=== PATIENT | female | born 1940 | race Caucasian/White ===

== ENCOUNTER 2018-03-04 06:54 | Outpatient (CLI) | payer OTHER, SELFPAY ==
[2018-03-04 08:10] LABS: Abs Immature Grans 0.01 k/cumm (0.0-0.09); Absolute Basophil Count 0.04 k/cumm (0.0-0.2); Absolute Eosinophil Count 0.26 k/cumm (0.0-0.7); Absolute Lymphocyte Count 1.73 k/cumm (1.2-3.4); Absolute Monocyte Count 0.58 k/cumm (0.11-0.7); Absolute Neutrophil Count 2.48 k/cumm (1.2-6.7); Basophils % 0.8; Eosinophils % 5.1; HCT 42.9 % (36.0-46.0); HGB 14.3 g/dL (12.0-15.5); Immature Grans % 0.2; Lymphocytes % 33.9; Mean Corp. HGB Concentration 33.3 g/dL (32.0-36.0); Mean Corpuscular Volume 89.9 fL (80-95); Mean Platelet Volume 11.7 fL (8.0-11.0); Monocytes % 11.4; Neutrophils % 48.6; Platelet Count 181 x1000/uL (130-400); RBC 4.77 m/cumm (4.00-5.20); RBC Distribution Width 14.7 % (11.7-14.6)
[2018-03-04 08:25] LABS: ALT 23 U/L (12-78); AST 9 U/L (15-37); Albumin 3.6 g/dL (3.4-5.0); Alkaline Phosphatase 99 U/L (46-116); Anion Gap 5.8 mmol/L (3-11); BUN 20 mg/dL (7-18); Bilirubin, Total 0.6 mg/dL (0.2-1.0); C-Reactive Protein 0.21 mg/dL (0.0-0.3); CO2 29.2 mmol/L (21.0-32.0); CREATININE 0.82 mg/dL (0.55-1.02); Calcium 9.2 mg/dL (8.5-10.1); Chloride 103 mmol/L (98-107); Glucose 104 mg/dL (70-100); Sodium 138 mmol/L (136-145); Total Protein 7.5 g/dL (6.4-8.2)
== END 2018-03-04 07:14 ==
PROVIDERS: PCP Nurse Practitioner Family; Visit Provider Nurse Practitioner Family
DX: I30.0 Acute nonspecific idiopathic pericarditis (principal); K92.1 Melena; K62.1 Rectal polyp; I10 Essential (primary) hypertension
CPT/HCPCS: 36415; 46600; 80053; 99203; 99213; 85025; 86140

== ENCOUNTER 2018-03-15 08:12 | Day surgery (SDC) | payer OTHER, SELFPAY ==
--- NOTE | 2018-03-15 06:47 | W.COLOREPORT ---
Date of service: 03/15/18 Time of Service: 10:41 Colonoscopy Report Date of procedure: 03/15/18 Pre-op diagnosis general: Rectal bleeding, rectal polyp Post-op diagnosis procedure note: other (Rectal mass) Procedure: Colonoscopy with biopsy with hot snare Surgeon: Lois Mckeon Anesthesia proc note operative: MAC (Jay Newberry CRNA) Estimated blood loss (mL): 5 Pathology: other (rectal mass) Complications: None Disposition: same day Indications: Mrs Garcia is a pleasant 78-year-old female who I saw in the office for some rectal bleeding. It was felt that it was most likely hemorrhoids. Anoscopy was done and I saw a large polyp. Colonoscopy was recommended. Risks, benefits, and complications were reviewed with the patient and she wished to proceed. No guarantees were given or implied. Prep: Miralax/Dulcolax Procedure Start Time: 10:00 Procedure End Time: 10:32 Retraction Time: 20 Findings: Large friable rectal mass just above the dentate line Procedure Description: After informed consent was obtained the patient was taken to the procedure room and placed in a left decubitous position. Monitors were applied and a time out was done. The patients name, date of , procedure, allergies to medications and metal in their body was reviewed. The patient was then sedated. Once sedated and comfortable a rectal exam was done. External exam was normal. Internal exam revealed a normal sphincter tone and a palpable mass. The scope was then introduced and retro-flexed. No internal hemorrhoids were identified. There was a circumferential mass that was just at or above the dentate line. It was hard to see were it began. It was friable. The scope was then advanced to the cecum without difficulty. The TI and appendiceal orifice were identified. The prep was adequate. The scope was then slowly retracted over 20 minutes back into the rectum. Using a small snare 2 1 cm pieces of the mass were removed. The scope was removed and the patient was woken up and taken back to Same day surgery in stable condition. The patient tolerated the procedure well and there were no immediate complications. Follow up: I will get CBC, CMP and CEA today. Will get a CT scan chest, abdomen and pelvis authorized. We will call her with time and date of her CT scan. I will refer patient to Colorectal surgeon and radiation oncology at [facility] [place] and consultation.
--- NOTE | 2018-03-15 06:49 | W.PM.DSUDISC ---
Discharge Plan Disposition Patient Disposition: HOME Condition: Good Discharge Details Reason For Visit: RECTAL POLYP Attending Provider: Lois Mckeon Primary Care Provider: Shakila Cadet Home Meds and New Rx's Prescriptions: Continue docusate sodium 100 mg capsule 100 mg PO DAILY RF: 0 multivitamin [Daily Multi-Vitamin] 1 EACH tablet 1 ea PO DAILY RF: 0 hydrochlorothiazide 25 MG tablet 12.5 mg PO DAILY Qty: 45 RF: 3 vitamin E mixed 400 UNIT tablet 400 mg PO DAILY RF: 0 amlodipine 2.5 mg tablet 2.5 mg PO DAILY Qty: 90 RF: 3 Discharge Instructions Instructions: Colonoscopy (DC) Additional Instructions: Findings: Rectal mass, unfortunately this is most likely Cancer Follow up: We will call you to let you know about your appointment for a CT scan. I am going to refer you to [facility] colorectal surgeon and with a radiation oncologist. If you haven't hear from [facility] by next week then call my office. I will call you as soon as I have the Pathology results New Medications: none Please call if you develop: Fevers >101.5 Nausea or Vomiting Abdominal pain that is not transient Other: You may have some bleeding for a day or 2 1. Because there will be medication in your system for the next 24 hours, you may feel a little sleepy. Your coordination will be affected. Therefore: a. Do not drive or operate dangerous equipment for 24 hours. b. Do not drink alcohol beverages for 24 hours (not even beer). c. Plan to go home and rest for the day. 2. Generally there are no restrictions on your activity after a day or so has gone by, but you may feel a bit fatigued for a few days. 3 After you arrive home you may have a light meal and return to a normal diet as you can tolerate it without feeling sick to your stomach. 4. After surgery, you may feel pain or discomfort. This should be only transient, but if it persists please contact your doctor. 5. If there are any questions regarding the findings of your procedure, please feel free to contact your doctor. 6. If you are unable to contact your doctor with a problem, contact the hospital at [phone]. 7. Continue all your regular medications unless directed otherwise. I understand the above instructions and have no questions. Signature of Patient or Responsible Adult Escort Date/Time Name of Responsible Adult Escort Signature of Nurse Date/Time Activity:: Activity as Tolerated Diet:: As Tolerated Discharge Orders Discharge Orders: Discharge Order (Routine); Ordered 03/15/18 Ordered By: Lois Mckeon DS: Diagnosis Discharge Diagnosis (1) Rectal mass: Status: Suspected (2) S/P colonoscopy: Status: Acute
[2018-03-15 08:33] VITALS: BP 128/77; PULSE 88; RESP 16; TEMP 36.2; O2SAT 98
[2018-03-15] MEDS: Lactated Ringers 1,000 ML 80 ML IV (08:45)
--- NOTE | 2018-03-15 10:28 | BOWEL_PTH ---
PATIENT: Kelsea Garcia LOC: [facility] U#:[id number] AGE/SX: 78/F ROOM: RE03/15/[address]: Lois Mckeon MD : [id number] BED: DIS: 03/15/2018 SPEC #: [id number] RECD: 03/15/18 12:51 STATUS: RIZWAN REQ #: [id number] TIFFANY: 03/15/18 10:[address]: Lois Mckeon DEPT: Surgical Specimen RECD BY: Moriah Black ENTERED: 03/15/18 12:52 SP TYPE: Bowel OTHR DR: Shakila Cadet APRN Tissues: 1 - BIOPSY BOWEL Procedures: GROSS AND MICRO LEVEL 4 Comments: [id number]
[2018-03-15 11:21] VITALS: BP 152/84; PULSE 70; RESP 16; TEMP 35.7; O2SAT 99
[2018-03-15] MEDS: Normal Saline Flush 10 ML SYR IV (11:33)
[2018-03-15 11:47] LABS: Absolute Basophil Count 0.03 k/cumm (0.0-0.2); Absolute Eosinophil Count 0.18 k/cumm (0.0-0.7); Absolute Lymphocyte Count 1.47 k/cumm (1.2-3.4); Absolute Monocyte Count 0.58 k/cumm (0.11-0.7); Absolute Neutrophil Count 2.79 k/cumm (1.2-6.7); Basophils % 0.6; Eosinophils % 3.6; HCT 41.5 % (36.0-46.0); Lymphocytes % 29.1; Mean Corp. HGB Concentration 33.7 g/dL (32.0-36.0); Mean Corpuscular Hemoglobin 30.2 pg (27.0-33.0); Mean Corpuscular Volume 89.4 fL (80-95); Mean Platelet Volume 11.7 fL (8.0-11.0); Monocytes % 11.5; Neutrophils % 55.2; Platelet Count 157 x1000/uL (130-400); RBC 4.64 m/cumm (4.00-5.20); RBC Distribution Width 14.2 % (11.7-14.6); White Blood Cell Count 5.05 k/cumm (4.4-10.8)
[2018-03-15 12:06] LABS: ALT 19 U/L (12-78); AST 18 U/L (15-37); Albumin 3.5 g/dL (3.4-5.0); Alkaline Phosphatase 98 U/L (46-116); Anion Gap 10.2 mmol/L (3-11); BUN 12 mg/dL (7-18); Bilirubin, Total 0.6 mg/dL (0.2-1.0); CO2 26.8 mmol/L (21.0-32.0); CREATININE 0.94 mg/dL (0.55-1.02); Calcium 9.2 mg/dL (8.5-10.1); Chloride 102 mmol/L (98-107); Glucose 102 mg/dL (70-100); Potassium 3.7 mmol/L (3.5-5.1); Sodium 139 mmol/L (136-145); Total Protein 7.2 g/dL (6.4-8.2)
[2018-03-16 10:13] LABS: CEA <0.5 ng/ml
== END 2018-03-15 11:40 | disposition home or self-care (01) ==
LOC: SUR 08:12
PROVIDERS: PCP Nurse Practitioner Family; Visit Provider Surgery
PROC: 0DJD8ZZ Inspection of Lower Intestinal Tract, Via Natural or Artificial Opening Endoscopic (ICD-10-PCS; CPT 45378; principal; 2018-03-15 10:00)
DX: K62.5 Hemorrhage of anus and rectum (principal); D12.8 Benign neoplasm of rectum; I10 Essential (primary) hypertension
CPT/HCPCS: 45385; 36415; 80053; 88305; 82378; 85025

== ENCOUNTER 2018-03-17 02:00 | Outpatient (CLI) | payer OTHER, SELFPAY ==
[2018-03-17] MEDS: Omnipaque 350 MG/ML 50 ML BTL PO (10:33)
[2018-03-17] MEDS: Omnipaque 350 MG/ML 100 ML BTL IJ (10:33)
--- NOTE | 2018-03-17 10:45 | DI.CT_ITS ---
SYMPTOM/DIAGNOSIS: NEW DIAGNOSIS OF RECTAL CANCER C20 CHEST, ABDOMEN AND PELVIS CT: 03/17 CT examination of the chest, abdomen and pelvis was performed with biphasic hepatic imaging with intravenous infusion of 100 cc Omnipaque 350 and ingestion of dilute Barium. The patient reportedly has a history of recently diagnosed rectal carcinoma. No focal bony lesion identified in the regions surveyed to indicate bony metastases. The lungs are mostly clear. However, there are predominantly linear areas of increased radiodensity in the lung apices and in the lung bases consistent with scarring. There is small focus of right middle lobe atelectasis or scarring. There is question of superimposed multiple nodular radiodensities in the right lung apex, the largest measuring about 13 mm in greatest diameter. Findings may represent scarring but the possibility of superimposed intrapulmonary metastatic or primary lesion is not excluded. Tracheobronchial tree appears intact. No mediastinal or hilar adenopathy. No pulmonary embolic disease. No thoracic aortic aneurysm or dissection. No pleural effusion or pleural based mass. Liver and spleen appear normal. No biliary dilatation seen. Gallbladder and bile ducts are CT normal. The pancreas appears normal. Abdominal aorta is of normal diameter and no major vascular abnormalities seen. No significant abdominal wall hernia seen. No abdominal or pelvic adenopathy. [employer] structures appear intact for post-menopausal patient. Question rectal wall thickening consistent with diagnosis of rectal carcinoma. No abdominal or pelvic adenopathy seen. Adrenals appear normal bilaterally. There are prominent extrarenal pelves bilaterally without evidence of hydronephrosis. No evidence of ureterolithiasis. A small nonobstructing left renal calculus is noted. CONCLUSION: 1. Nonobstructing left renal calculus 2. Questionable findings in right lung apex, scarring vs metastatic or primary lung neoplasm. Close follow up, PET CT, or tissue sampling should be considered.
== END 2018-03-17 02:20 ==
PROVIDERS: PCP Nurse Practitioner Family; Visit Provider Surgery
DX: C20 Malignant neoplasm of rectum (principal); N20.0 Calculus of kidney; J98.4 Other disorders of lung; R91.1 Solitary pulmonary nodule
CPT/HCPCS: 74177; 71260; J3490; Q9967

== ENCOUNTER → 2019-06-29 09:56 | Outpatient (BNVA) | payer MEDICARE, OTHER, SELFPAY | PROVIDERS: PCP Nurse Practitioner Family; Referring Provider Nurse Practitioner Family; Visit Provider Physical Therapy Assistant | DX: K64.8 Other hemorrhoids (principal); K62.89 Other specified diseases of anus and rectum; Z12.11 Encounter for screening for malignant neoplasm of colon; Z86.010 Personal history of colon polyps; I10 Essential (primary) hypertension | CPT/HCPCS: 99213 ==

== ENCOUNTER 2019-07-11 16:22 | Inpatient (IN) | payer MEDICARE, OTHER, SELFPAY ==
[2019-07-11] VITALS (23 sets, daily range): BP systolic 130–162; BP diastolic 52–91; PULSE 64–97; RESP 13–20; TEMP 36.4–37.2; O2SAT 95–99
--- NOTE | 2019-07-11 16:26 | DI.RAD_ITS ---
EXAM: XR PELVIS AP and XR femur RT CLINICAL HISTORY: fall, pain. TECHNIQUE: 2D digital imaging was performed. COMPARISON: No previous for comparison. FINDINGS: BONES: There is a mildly displaced intertrochanteric fracture of the right femur. No bony destructiv e lesion is seen. JOINTS: No dislocation present. No joint space narrowing is present. SOFT TISSUE: Normal. Atherosclerosis. IMPRESSION: Mildly displaced intertrochanteric fracture of the right femur. DATA REPOSITORY: RADIATION DOSE DELIVERED:
--- NOTE | 2019-07-11 16:27 | ED.GENADUL_ITS ---
Discharge Plan Disposition Patient Disposition: [facility] Condition: Serious Discharge Details Chief Complaint: Orthopedic Clinical Impression: Closed intertrochanteric fracture of right hip, Fall due to ice or snow Primary Care Provider: Isatu Soni ED Provider: Martin Barrow Home Meds and New Rx's Prescriptions: No Action docusate sodium [Colace] 100 mg capsule 100 mg PO DAILY RF: 0 hydrocortisone 2.5 % cream with perineal applicator 1 applic LA TID PRN (Reason: hemorrhoids) Qty: 30 RF: 2 multivitamin [Daily Multi-Vitamin] 1 EACH tablet 1 ea PO DAILY RF: 0 amlodipine 2.5 mg tablet 2.5 mg PO DAILY Qty: 90 RF: 3 Medical Decision Making 79-year-old female here after mechanical slip and fall on ice with injury to right hip. Imaging delayed secondary to pain. Will have [employer] [employer] see patient for fascia iliaca block. Toradol 30mg IV and subdissociative ketamine 10mg IV given for pain. xray of pelvis and hip reviewed and interpreted by me: Intertrochanteric fracture right hip I called and spoke with Dr. Garzon, on-call orthopedics, and discussed presentation and diagnostics. I called and spoke with on-call hospitalist, Dr. Santoyo, who will admit the patient. Screening ECG as requested by Dr. Santoyo was reviewed and interpreted by me: Sinus rhythm 79 bpm, normal axis, nondiagnostic. Screening labs reviewed and nondiagnostic. HPI General Mode of arrival: ambulatory . Date/Time Provider Initiated Documentation: 07/11/19 16:26 . Limitations to Documentation: no limitations . Information obtained by: patient . HPI Narrative: 79yo f here with right hip pain. Patient notes she slipped on ice and fell to the ground injuring her right hip. This occurred about 2 to 3 hours prior to arrival. Patient notes she has been on the ground for 2 to 3 hours in the cold. She did not hit her head. She did not lose consciousness. She does not have any neck or back pain. Patient denies chest pain or shortness of breath. Related Data Home Medications Medication Instructions Recorded Confirmed multivitamin [Daily Multi-Vitamin] 1 ea PO DAILY 08/28/16 07/11/19 amlodipine 2.5 mg tablet 2.5 mg PO DAILY #90 tab-cap 02/24/18 07/11/19 docusate sodium 100 mg capsule 100 mg PO DAILY 06/29/19 07/11/19 hydrocortisone 2.5 % topical cream 1 applic LA TID PRN #30 gm 07/05/19 07/11/19 with perineal applicator Previous Rx's Medication Instructions Recorded amlodipine 2.5 mg tablet 2.5 mg PO DAILY #90 tab-cap 02/24/18 hydrocortisone 2.5 % topical cream 1 applic LA TID PRN #30 gm 07/05/19 with perineal applicator Allergies Allergy/AdvReac Type Severity Reaction Status Date / Time morphine Allergy Severe throat Unverified 07/11/19 17:39 closed up alendronate sodium Allergy Intermediate chest pain Unverified 07/11/19 17:39 [From Fosamax] propranolol HCl AdvReac Intermediate depression Unverified 07/11/19 17:39 [From Inderal LA] tramadol HCl [From Ultram] AdvReac Intermediate Got High Unverified 07/11/19 17:39 Review of Systems All systems reviewed & are unremarkable except as noted in HPI and below Cardiovascular Cardiovascular: Denies chest pain and Denies dyspnea Respiratory Respiratory: Denies dyspnea Gastrointestinal Gastrointestinal: Denies abdominal pain Musculoskeletal Musculoskeletal: Reports as per HPI [facility] Medical History Acute idiopathic pericarditis (Resolved 07/23/17) Acute pericarditis Chest pain at rest (Resolved 08/20/16) Thought to be related to adverse reaction to Fosamax (esophagitis?) Essential hypertension (Chronic) Hyperlipidemia, unspecified (Chronic) 02/2017 labwork: 10-year ASCVD ~25.1% --> pt declines statins Lung nodule (Chronic) RUL noted incidentally 03/17/[address] carried out during workup for rectal polyp --> 04/04/19 [facility] [place] Thoracic Surgery consult and PET scan showing non-FDG avid lesion most c/w scar tissue --> plan for 3 vs. 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) [facility] [place] Podiatry, R>L Osteoporosis, unspecified (Chronic) S/p failed tx with bisphosphonates (adverse reactions) Pityriasis rubra pilaris (Resolved 08/20/16) [facility] [place] Dermatology Tubulovillous adenoma polyp of rectum (Acute) 03/15/2018 colonoscopy Unspecified vertiginous syndromes and labyrinthine disorders (Resolved 08/20/16) Surgical History Bladder Suspension With correction of rectal prolapse at the same time H/O rectal polypectomy (Acute 04/15/18) Ligation of fallopian tube (~1972) Vaginal hysterectomy Family History Mother , Breast CA at age 70. Essential hypertension Migraines Neoplasm Breast Father , Leukemia at age 50. TB (tuberculosis) Neoplasm Leukemia Brother Essential hypertension Social History Smoking/Tobacco Use Status: Former Tobacco Use Alcohol Intake: current Alcohol Intake frequency: 0-2 drinks per day Alcohol type: wine Drug use: Rarely Substance use type: marijuana Details: Patient states had brownie a couple weeks ago. Adopted: No Caregiver/Support person: No Foster care: No Household members: spouse Number of Children: 1 Current gender identity: female What type of physical activity do you participate in: regular exercise Duration: 45-60 minutes/day Frequency: daily Seatbelt use: always Water heater temp set <120 deg: Yes Working smoke detector in home: Yes Fire extinguisher in home: Yes Carbon monox detector in home: Yes Firearms in home: Yes Firearms unloaded and locked: No Do you feel safe at home: Yes Do you feel safe in your relationship?: Yes Additional Social history: Patient reports is very active and takes walks every day. Exam Const General: cooperative and no acute distress HENNM Head: normocephalic and atraumatic Mouth: moist mucous membranes Eyes EOM: EOM intact bilaterally Neck Neck: trachea midline and supple Resp Auscultation: clear to auscultation bilaterally, no rales, no rhonchi and no wheezes Cardio Jugular venous pressure: no JVD Rate: regular rate and not tachycardic Rhythm: regular rhythm GI Palpation: soft, not firm, no guarding, no masses, not rigid and nontender Back/Spine/Pelvis Cervical Spine: cervical ROM normal and No cervical spinal tenderness Thoracic/Lumbar Spine: No thoracic spinal tenderness and No lumbar spinal tende rness Skin General skin exam: no rashes or lesions noted Neuro General: patient alert, patient awake, patient oriented x3 and tone normal Motor: other (wiggles toes right) Sensory Exam: other (distal sensation intact RLE) Extrem General: no edema Right lower extremity: hip/thigh Details: tenderness Location: of the proximal upper leg and abnormal ROM Details: pain with passive ROM during (any movement) Psych Appearance: grossly normal
[2019-07-11] MEDS: Ketorolac 30 MG/ML VIAL IVP (17:20)
[2019-07-11] MEDS: Ketamine 500 MG/10 ML VIAL 10 MG IV (17:20)
[2019-07-11] MEDS: Normal Saline Flush 10 ML SYR IVP (17:24)
[2019-07-11] MEDS: Normal Saline 100 ML 400 ML (17:24)
[2019-07-11 17:33] LABS: Abs Immature Grans 0.02 k/cumm (0.0-0.09); Absolute Eosinophil Count 0.01 k/cumm (0.0-0.7); Absolute Monocyte Count 0.77 k/cumm (0.11-0.7); Basophils % 0.2; Eosinophils % 0.1; HGB 13.6 g/dL (12.0-15.5); Immature Grans % 0.2 %; Lymphocytes % 7.7; Mean Corpuscular Hemoglobin 30.2 pg (27.0-33.0); Mean Corpuscular Volume 88.9 fL (80-95); Mean Platelet Volume 12.3 fL (8.0-11.0); Neutrophils % 85.8; Platelet Count 177 x1000/uL (130-400); RBC Distribution Width 14.5 % (11.7-14.6); White Blood Cell Count 12.81 k/cumm (4.4-10.8)
[2019-07-11 17:39] LABS: Absolute Basophil Count 0.03 k/cumm (0.0-0.2); Absolute Lymphocyte Count 0.99 k/cumm (1.2-3.4); Absolute Neutrophil Count 10.99 k/cumm (1.2-6.7)
[2019-07-11 17:52] LABS: ALT 22 U/L (14-59); AST 15 U/L (15-37); Albumin 3.8 g/dL (3.4-5.0); Alkaline Phosphatase 114 U/L (46-116); BUN 23 mg/dL (7-18); Bilirubin, Total 0.5 mg/dL (0.2-1.0); CREATININE 0.94 mg/dL (0.55-1.02); Calcium 9.6 mg/dL (8.5-10.1); Chloride 103 mmol/L (98-107); Estimated GFR 57.74 (mL/min/1.73m2); Glucose 148 mg/dL (74-106); Potassium 3.5 mmol/L (3.5-5.1); Sodium 139 mmol/L (136-145); Total Protein 7.1 g/dL (6.4-8.2); Troponin I 0.06 ng/Ml (<0.06)
--- NOTE | 2019-07-11 19:08 | DI.VRAD_ITS ---
PROCEDURE INFORMATION: Exam: XR Right Femur Exam date and time: 07/11/2019 4:58 PM Age: 79 years old Clinical indication: Other: Fall, pain TECHNIQUE: Imaging protocol: XR Right femur. Views: 2 views. COMPARISON: No relevant prior studies available. FINDINGS: Bones/joints: Right intratrochanteric fracture. Soft tissues: Unremarkable. Vasculature: Atherosclerotic disease. IMPRESSION: Right intratrochanteric fracture. Dictated and Authenticated by: Cynthia Bridges MD. Ordering:ISAIAH Salazar MD
--- NOTE | 2019-07-11 19:09 | DI.VRAD_ITS ---
PROCEDURE INFORMATION: Exam: XR Pelvis Exam date and time: 07/11/2019 4:58 PM Age: 79 years old Clinical indication: Other: Fall, pain TECHNIQUE: Imaging protocol: XR pelvis. Views: 1 or 2 view. COMPARISON: No relevant prior studies available. FINDINGS: Bones/joints: Degenerative changes at L4-L5. Mild levoscoliosis of the lumbar spine. Right intratrochanteric fracture. Soft tissues: Unremarkable. Vasculature: Atherosclerotic disease. IMPRESSION: Right intratrochanteric fracture. Dictated and Authenticated by: Cynthia Bridges MD. Ordering:ISAIAH Salazar MD
--- NOTE | 2019-07-11 20:57 | HPE_ITS ---
Date of service: 07/11/19 Time of Service: 20:57 Assessment and Plan Assessment and plan (1) Closed intertrochanteric fracture of right hip: Start date: 07/11/19 Status: Acute Assessment and plan: This is a generally healthy 79-year-old lady who slipped and fell on the ice fracturing her right hip. She is medically stable for surgery and will remain n.p.o. after midnight with planned surgical repair in the morning. Orthopedic surgery has been notified through the ED. Qualifiers: Encounter type: initial encounter Fracture alignment: nondisplaced Qualified Code(s): S72.144A - Nondisplaced intertrochanteric fracture of right femur, initial encounter for closed fracture (2) Essential hypertension: Status: Chronic Assessment and plan: This is a patient's only medical problem and stable on low-dose amlodipine. EKG was reported as normal sinus rhythm with no acute changes. 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 She had severe pain and could not stand and was in the snow for a couple of hours before her found her. She was dressed appropriately and did not have hypothermia or evidence of further muscle injury. She is very active and usually walks daily. In the ED she was assessed as stable except for pain control which was complicated by her allergies morphine. She was able to take fentanyl in the past and this was given with pain relief she was on Med Surg. Orthopedic was consulted from the ED and does plan to take her to surgery in the morning. Her only chronic medical problem is hypertension which is generally controlled. Review of Systems Narrative: 13 point review of systems otherwise unrevealing or stable. Patient had a mechanical fall, slipping on ice with no cardiovascular or respiratory complaints prior. COUNTS INCLUDE 234 BEDS AT THE [facility] Medical History Acute idiopathic pericarditis (Resolved 07/23/17) Acute pericarditis Chest pain at rest (Resolved 08/20/16) Thought to be related to adverse reaction to Fosamax (esophagitis?) Essential hypertension (Chronic) Hyperlipidemia, unspecified (Chronic) 02/2017 labwork: 10-year ASCVD ~25.1% --> pt declines statins Lung nodule (Chronic) RUL noted incidentally 03/17/[address] carried out during workup for rectal polyp --> 04/04/19 [facility] [place] Thoracic Surgery consult and PET scan showing non-FDG avid lesion most c/w scar tissue --> plan for 3 vs. 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) [facility] [place] Podiatry, R>L Osteoporosis, unspecified (Chronic) S/p failed tx with bisphosphonates (adverse reactions) Pityriasis rubra pilaris (Resolved 08/20/16) [facility] [place] Dermatology Tubulovillous adenoma polyp of rectum (Acute) 03/15/2018 colonoscopy Unspecified vertiginous syndromes and labyrinthine disorders (Resolved 08/20/16) Surgical History Bladder Suspension With correction of rectal prolapse at the same time H/O rectal polypectomy (Acute 04/15/18) Ligation of fallopian tube (~1972) Vaginal hysterectomy Family History Mother , Breast CA at age 70. Essential hypertension Migraines Neoplasm Breast Father , Leukemia at age 50. TB (tuberculosis) Neoplasm Leukemia Brother Essential hypertension Social History Smoking/Tobacco Use Status: Former Tobacco Use Alcohol Intake: current Alcohol Intake frequency: 0-2 drinks per day Alcohol type: wine Drug use: Rarely Substance use type: marijuana Details: Patient states had brownie a couple weeks ago. Adopted: No Caregiver/Support person: No Foster care: No Household members: spouse Number of Children: 1 Current gender identity: female What type of physical activity do you participate in: regular exercise Duration: 45-60 minutes/day Frequency: daily Seatbelt use: always Water heater temp set <120 deg: Yes Working smoke detector in home: Yes Fire extinguisher in home: Yes Carbon monox detector in home: Yes Firearms in home: Yes Firearms unloaded and locked: No Do you feel safe at home: Yes Do you feel safe in your relationship?: Yes Additional Social history: Patient reports is very active and takes walks every day. Meds Home Medications and Allergies Home Medications Medication Instructions Recorded Confirmed Type multivitamin [Daily Multi-Vitamin] 1 ea PO DAILY 08/28/16 07/11/19 History amlodipine 2.5 mg tablet 2.5 mg PO DAILY #90 tab-cap 02/24/18 07/11/19 Rx docusate sodium 100 mg capsule 100 mg PO DAILY 06/29/19 07/11/19 History hydrocortisone 2.5 % topical cream 1 applic [place] TID PRN #30 gm 07/05/19 07/11/19 Rx with perineal applicator Allergies Allergy/AdvReac Type Severity Reaction Status Date / Time morphine Allergy Severe throat Unverified 07/11/19 17:39 closed up alendronate sodium Allergy Intermediate chest pain Unverified 07/11/19 17:39 [From Fosamax] propranolol HCl AdvReac Intermediate depression Unverified 07/11/19 17:39 [From Inderal LA] tramadol HCl [From Ultram] AdvReac Intermediate Got High Unverified 07/11/19 17:39 Exam Narrative Exam Narrative: General: Patient is thin, well-developed and no acute distress except for discomfort from the right hip pain. HEENT: Normocephalic, coarsened features over face. Eyes with pupils equal and reactive to light symmetrically, extraocular were intact and sclera anicteric. Oropharynx with slight dry oral mucosa fair dentition. Neck: Supple without JVD. Lungs: Clear to auscultation percussion. Heart: Regular rate and rhythm with no appreciable murmurs or gallops. Breast: Exam deferred. Abdomen: Scaphoid contour, soft and nontender to palpation with no palpable hep atosplenomegaly. Pelvic/rectal: Exam deferred. Extremities: Without clubbing, cyanosis or pitting edema. Peripheral pulses intact. Right hip is swollen and tender to movement and palpation with the right foot slightly inward turning with rotation. Skin: Darkly tanned with actinic changes diffusely over sun exposed areas, thin with normal turgor and rough texture. No rashes. Neuro: Cranial nerves II through XII grossly intact, motor and sensory intact. Psych: Normal mood and affect, remote and recent memory intact. Results Imaging Imaging Studies: Exam: XR Right Femur Exam date and time: 07/11/2019 4:58 PM Age: 79 years old Clinical indication: Other: Fall, pain TECHNIQUE: Imaging protocol: XR Right femur. Views: 2 views. COMPARISON: No relevant prior studies available. FINDINGS: Bones/joints: Right intratrochanteric fracture. Soft tissues: Unremarkable. Vasculature: Atherosclerotic disease. IMPRESSION: Right intratrochanteric fracture. Labs Result diagrams: 07/11/19 17:07 07/11/19 17:07 Labs: Laboratory Results - last 24 hr 07/11/19 07/11/19 17:07 17:07 WBC 12.81 H RBC 4.50 Hgb 13.6 Hct 40.0 MCV 88.9 MCH 30.2 MCHC 34.0 RDW 14.5 Plt Count 177 MPV 12.3 H Immature Gran % 0.2 Neutrophils % 85.8 Lymphocytes % 7.7 Monocytes % 6.0 Eosinophils % 0.1 Basophils % 0.2 Absolute Neutrophils 10.99 H Absolute Lymphocytes 0.99 L Absolute Monocytes 0.77 H Absolute Eosinophils 0.01 Absolute Basophils 0.03 Sodium 139 Potassium 3.5 Chloride 103 Carbon Dioxide 26.0 Anion Gap 10.0 BUN 23 H Creatinine 0.94 Estimated GFR/1.73 m2 57.74 Glucose 148 H Calcium 9.6 Total Bilirubin 0.5 AST 15 ALT 22 Alkaline Phosphatase 114 Troponin I 0.06 Total Protein 7.1 Albumin 3.8 Last Vital Signs Temp 37.2 C 07/11/19 20:09 Pulse 77 07/11/19 20:09 Resp 19 07/11/19 20:09 BP 158/75 H 07/11/19 20:09 Pulse Ox 95 07/11/19 20:09 COVID-19 Screening Traveled to [place] from one of the affected countries or regions?: No Recent travel in the [place] within the last 8 weeks?: No Recent out of the country travel within the last 8 weeks?: No Exposure or possible exposure to illness during travel?: No Had IN PERSON contact w/suspected or confirmed C-19 person: No Have you had the following symptoms in the past few days?: No Symptoms noted since travel?: No Symptoms
[2019-07-11] MEDS: Acetaminophen 325 MG TAB 650 MG PO (21:32)
[2019-07-11] MEDS: Normal Saline 1,000 ML 80 ML IV (21:35)
[2019-07-11 22:11] LABS: Bilirubin Negative (Negative); Blood Trace-intact (Negative); Clarity Clear (Clear); Glucose Negative (Negative); Ketones 40 mg/dL (Negative); Leukocyte Esterase Negative (Negative); Nitrite Negative (Negative); Specific Gravity >= 1.030 (1.005-1.025); Urobilinogen 0.2 EU/dL (Up TO 0.2)
[2019-07-11 22:18] LABS: Bacteria Rare HPF (Negative); C & S Indicated? No; Casts Negative LPF (Negative); Crystals Negative HPF (Negative); Epithelial Cells Negative HPF (Negative); Mucus Trace (Negative); Other Cells Negative (Negative); RBC 0-2 HPF (0-2); WBC Negative HPF (0-5)
[2019-07-11] MEDS: fentaNYL 100 MCG/2 ML VIAL 25 MCG IVP (23:24)
[2019-07-12] VITALS (14 sets, daily range): BP systolic 109–167; BP diastolic 59–75; PULSE 69–87; RESP 11–18; TEMP 36.4–37.3; O2SAT 95–100
[2019-07-12] MEDS: fentaNYL 100 MCG/2 ML VIAL 25 MCG IVP ×2 (02:00→05:14)
[2019-07-12] MEDS: Ketorolac 15 MG/ML VIAL IVP (05:14)
--- NOTE | 2019-07-12 07:15 | DI.RAD_ITS ---
EXAM: XR HIP RT IN OR CLINICAL HISTORY: Closed intertrochanteric fracture of right hip TECHNIQUE: 2D and realtime digital imaging was performed. CONTRAST MATERIAL: Refer to procedure report. COMPARISON: XR FEMUR RT from 07/11/2019 XR PELVIS AP from 07/11/2019 FINDINGS: Fluoroscopy was provided for Dr. Garzon during the performance of a reduction and internal fixatio n of the right intertrochanteric femoral fracture.. Please refer to the procedure report for complet e details. Fluoro time: 317.7 seconds IMPRESSION: RADIATION DOSE DELIVERED:
[2019-07-12 07:34] LABS: HCT 33.9 % (36.0-46.0); HGB 11.4 g/dL (12.0-15.5); Mean Corp. HGB Concentration 33.6 g/dL (32.0-36.0); Mean Corpuscular Hemoglobin 30.3 pg (27.0-33.0); Mean Corpuscular Volume 90.2 fL (80-95); Mean Platelet Volume 12.5 fL (8.0-11.0); Platelet Count 138 x1000/uL (130-400); RBC 3.76 m/cumm (4.00-5.20); RBC Distribution Width 14.9 % (11.7-14.6); White Blood Cell Count 8.22 k/cumm (4.4-10.8)
[2019-07-12 07:38] LABS: ALT 17 U/L (14-59); AST 20 U/L (15-37); Albumin 3.1 g/dL (3.4-5.0); Alkaline Phosphatase 95 U/L (46-116); Anion Gap 8.8 mmol/L (3-11); BUN 25 mg/dL (7-18); Bilirubin, Total 0.7 mg/dL (0.2-1.0); CO2 23.2 mmol/L (21.0-32.0); CREATININE 1.01 mg/dL (0.55-1.02); Calcium 8.8 mg/dL (8.5-10.1); Chloride 107 mmol/L (98-107); Estimated GFR 53.15 (mL/min/1.73m2); Glucose 106 mg/dL (74-106); Potassium 4.1 mmol/L (3.5-5.1); Sodium 139 mmol/L (136-145); Total Protein 6.2 g/dL (6.4-8.2)
--- NOTE | 2019-07-12 07:42 | W.ORTHOCONSU ---
Date of service: 07/12/19 Time of Service: 06:53 History of Present Illness History of Present Illness Chief Complaint: Right hip fracture Narrative: Kelsea is a active 79-year-old who slipped on the ice yesterday. She landed directly onto her right hip. She had immediate pain. She is unable to mobilize. Unfortunately, she was down for 2 to 3 hours before she was found by her . She was brought into the emergency department and diagnosed with a comminuted intertrochanteric hip fracture of the right side. Her pain is primarily about the right hip laterally and posteriorly. Occasionally she will have some pain which is in the right knee, more anteriorly than anywhere else. However, it seems to migrate based on how the hip is doing. She denies numbness or tingling. She denies previous pain in the right hip. She denies any break in the skin. No loss of consciousness. No head trauma Consults Consult date: 07/11/19 Requesting physician: Peyman Santoyo Consult Reason Right intertrochanteric hip fracture Assessment and Plan Assessment and plan (1) Closed intertrochanteric fracture of right hip: Status: Acute Assessment and plan: Allison Enamorado, is an active 79-year-old who fell on the ice with a comminuted right intertrochanteric hip fracture. She has no major medical issues. She is very active and is without any acute change in her health. She has no other acute medical issues. I recommend operative fixation of the right hip fracture. I discussed ankle details. I would use an intramedullary device. I reviewed the risk of the procedure to include bleeding, infection, pain, stiffness, damage nerves and vessels, damage to muscle tendons, malunion, nonunion, blood clot, cardiopulmonary demise. Despite these risk, she elects to proceed. Qualifiers: Encounter type: initial encounter Fracture alignment: nondisplaced Qualified Code(s): S72.144A - Nondisplaced intertrochanteric fracture of right femur, initial encounter for closed fracture Review of Systems All systems reviewed & are unremarkable except as noted in HPI and below PFSH Medical History Acute idiopathic pericarditis (Resolved 07/23/17) Acute pericarditis Chest pain at rest (Resolved 08/20/16) Thought to be related to adverse reaction to Fosamax (esophagitis?) Essential hypertension (Chronic) Hyperlipidemia, unspecified (Chronic) 02/2017 labwork: 10-year ASCVD ~25.1% --> pt declines statins Lung nodule (Chronic) RUL noted incidentally 03/17/[address] carried out during workup for rectal polyp --> 04/04/19 [facility] [place] Thoracic Surgery consult and PET scan showing non-FDG avid lesion most c/w scar tissue --> plan for 3 vs. 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) [facility] [place] Podiatry, R>L Osteoporosis, unspecified (Chronic) S/p failed tx with bisphosphonates (adverse reactions) Pityriasis rubra pilaris (Resolved 08/20/16) [facility] [place] Dermatology Tubulovillous adenoma polyp of rectum (Acute) 03/15/2018 colonoscopy Unspecified vertiginous syndromes and labyrinthine disorders (Resolved 08/20/16) Surgical History Bladder Suspension With correction of rectal prolapse at the same time H/O rectal polypectomy (Acute 04/15/18) Ligation of fallopian tube (~1972) Vaginal hysterectomy Family History Mother , Breast CA at age 70. Essential hypertension Migraines Neoplasm Breast Father , Leukemia at age 50. TB (tuberculosis) Neoplasm Leukemia Brother Essential hypertension Social History Smoking/Tobacco Use Status: Former Tobacco Use Alcohol Intake: current Alcohol Intake frequency: 0-2 drinks per day Alcohol type: wine Drug use: Rarely Substance use type: marijuana Details: Patient states had brownie a couple weeks ago. Adopted: No Caregiver/Support person: No Foster care: No Household members: spouse Number of Children: 1 Current gender identity: female What type of physical activity do you participate in: regular exercise Duration: 45-60 minutes/day Frequency: daily Seatbelt use: always Water heater temp set <120 deg: Yes Working smoke detector in home: Yes Fire extinguisher in home: Yes Carbon monox detector in home: Yes Firearms in home: Yes Firearms unloaded and locked: No Do you feel safe at home: Yes Do you feel safe in your relationship?: Yes Additional Social history: Patient reports is very active and takes walks every day. Exam Const General: cooperative, healthy appearing, comfortable and no acute distress Nutritional Appearance: average body habitus Orientation: alert, awake and oriented x3 HENMT Head: normal to inspection, normocephalic and atraumatic Extrem Other: Evaluation of the right hip shows no skin lesions, abrasions, or lacerations. No palpable masses. There is exquisite pain to palpation throughout the proximal femur. Range of motion was deferred due to exquisite pain with any attempted. There is some mild pain to palpation down the length of the thigh decreasing towards the knee. No pain with direct palpation of any aspect of the knee. No pain along the medial or lateral joint lines. No pain over the patella. Gentle passive range of motion of the knee causes no pain. Intact active dorsiflexion, plantarflexion, eversion, inversion. Sensation intact light touch of the deep and superficial peroneal nerve and tibial nerve. Palpable DP and PT pulse. Results Last Vital Signs Temp 37.3 C 07/12/19 03:28 Pulse 69 07/12/19 03:28 Resp 18 07/12/19 03:28 BP 148/64 H 07/12/19 03:28 Pulse Ox 98 07/12/19 03:28 Labs Result diagrams: 07/12/19 06:57 07/12/19 06:52 Labs: Laboratory Results - last 24 hr 07/11/19 07/11/19 07/11/19 17:07 17:07 17:07 WBC 12.81 H RBC 4.50 Hgb 13.6 Hct 40.0 MCV 88.9 MCH 30.2 MCHC 34.0 RDW 14.5 Plt Count 177 MPV 12.3 H Immature Gran % 0.2 Neutrophils % 85.8 Lymphocytes % 7.7 Monocytes % 6.0 Eosinophils % 0.1 Basophils % 0.2 Absolute Neutrophils 10.99 H Absolute Lymphocytes 0.99 L Absolute Monocytes 0.77 H Absolute Eosinophils 0.01 Absolute Basophils 0.03 Sodium 139 Potassium 3.5 Chloride 103 Carbon Dioxide 26.0 Anion Gap 10.0 BUN 23 H Creatinine 0.94 Estimated GFR/1.73 m2 57.74 Glucose 148 H Calcium 9.6 Magnesium 2.0 Total Bilirubin 0.5 AST 15 ALT 22 Alkaline Phosphatase 114 Troponin I 0.06 Total Protein 7.1 Albumin 3.8 Urine Color Urine Clarity Urine pH Ur Specific [place] Urine Protein Urine Ketones Urine Blood Urine Nitrite Urine Bilirubin Urine Urobilinogen Ur Leukocyte Esterase Urine RBC Urine WBC Ur Epithelial Cells Urine Crystals Urine Bacteria Urine Casts Urine Mucus Urine Other Ur Culture Indicated? Urine Glucose 07/11/19 07/12/19 07/12/19 21:55 06:52 06:57 WBC 8.22 D RBC 3.76 L Hgb 11.4 L D Hct 33.9 L MCV 90.2 MCH 30.3 MCHC 33.6 RDW 14.9 H Plt Count 138 MPV 12.5 H Immature Gran % Neutrophils % Lymphocytes % Monocytes % Eosinophils % Basophils % Absolute Neutrophils Absolute Lymphocytes Absolute Monocytes Absolute Eosinophils Absolute Basophils Sodium 139 Potassium 4.1 Chloride 107 Carbon Dioxide 23.2 Anion Gap 8.8 BUN 25 H Creatinine 1.01 Estimated GFR/1.73 m2 53.15 Glucose 106 Calcium 8.8 Magnesium Total Bilirubin 0.7 AST 20 ALT 17 Alkaline Phosphatase 95 Troponin I Total Protein 6.2 L Albumin 3.1 L Urine Color Yellow Urine Clarity Clear Urine pH 6.0 Ur Specific [place] >= 1.030 H Urine Protein Negative Urine Ketones 40 H Urine Blood Trace-intact H Urine Nitrite Negative Urine Bilirubin Negative Urine Urobilinogen 0.2 Ur Leukocyte Esterase Negative Urine RBC 0-2 Urine WBC Negative Ur Epithelial Cells Negative Urine Crystals Negative Urine Bacteria Rare Urine Casts Negative Urine Mucus Trace Urine Other Negative Ur Culture Indicated? No Urine Glucose Negative Imaging Imaging Studies: X-ray of the right hip and femur demonstrates a comminuted intertrochanteric hip fracture. There is no extension below the lesser trochanter. There is no apparent shaft fracture. There is no fracture about the knee. There is some notable shortening and varus deformity.
[2019-07-12] MEDS: ceFAZolin 2 GM/50 ML BAG IVPB (07:46)
[2019-07-12] MEDS: amLODIPine 2.5 MG TAB PO (07:46)
[2019-07-12] MEDS: Lactated Ringers 1,000 ML 30 ML IV (08:43)
--- NOTE | 2019-07-12 08:53 | INITIAL_ITS ---
- If Service Date Differs Date of service: 07/12/19 Time of Service: 08:53 Care Management Initial Assess REASON FOR HOSPITALIZATION:: Closed Intertrochanteric fracture right hip PAST MEDICAL HISTORY/PAST SURGICAL HISTORY:: Medical History: Acute idiopathic pericarditis (Resolved 07/23/17). Acute pericarditis. Chest pain at rest (Resolved 08/20/16). Thought to be related to adverse reaction to Fosamax (esophagitis?). Essential hypertension (Chronic). Hyperlipidemia, unspecified (Chronic). 02/2017 labwork: 10-year ASCVD ~25.1% --> pt declines statins. Lung nodule (Chronic). RUL noted incidentally 03/17/[address] carried out during workup for rectal polyp --> 04/04/[place] [facility] [place] [place] Surgery consult and PET scan showing non-FDG avid lesion most c/w scar tissue --> plan for 3 vs. 6 mo f/u chest CT. 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 [facility] [place] [place], R>L. Osteoporosis, unspecified (Chronic). S/p failed tx with bisphosphonates (adverse reactions). Pityriasis rubra pilaris (Resolved 08/20/16). [facility] [place]. Tubulovillous adenoma polyp of rectum (Acute). 03/15/2018 colonoscopy. Unspecified vertiginous syndromes and labyrinthine disorders (Resolved 08/20/16). Surgical History . Bladder Suspension. With correction of rectal prolapse at the same time. H/O rectal polypectomy (Acute 04/15/18). Ligation of fallopian tube (~1972). Vaginal hysterectomy PREVIOUS FUNCTIONAL STATUS/SOCIAL/FAMILY SUPPORTS:: Kelsea lives with her in a single family home in [place], [place] She is very active and continues to snow shoe and cross country ski. She is independent with all activities and care and continues to drive. 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 CURRENT FUNCTIONAL STATUS:: Kelsea was sitting up in bed when CM came to see her. She was pleasant and open to discussion. Kelsea shared that her only child, a daughter, was murdered 2 years ago by her . She stated that both Kelsea and her as well as her daughter's children have all received counseling. She stated she has many good friends and a [employer] support system. ADVANCE DIRECTIVES:: On file at [facility]. Shane MENON Has patient been provided with information about the portal?: Yes Did the patient sign up for the portal?: No CODE STATUS:: Full Code INSURANCE COVERAGE / FINANCIAL ISSUES:: Medicare. [employer] CURRENT HOME/COMMUNITY SERVICES/EQUIPMENT:: none PRIMARY CARE PHYSICIAN:: Isatu Soni POTENTIAL DISCHARGE NEEDS:: follow up with PCP and discharge plan of care PATIENT/FAMILY EDUCATION NEEDS:: Discharge Plan, limitations, follow up plan, [employer]. TRANSPORTATION:: via private vehicle with family PLAN:: Kelsea will be discharged home when medically ready. She is amenable to home health if needed. She will transport via private vehicle and follow up with Orthopedics and her PCP.CM will continue to support patient and discharge planning needs.
[2019-07-12] MEDS: Bupivacaine LIPOSOME/PF 133 MG/10 ML VIAL IJ (09:47)
[2019-07-12] MEDS: Bupivacaine 0.25% Pres-Free 30 ML VIAL (09:47)
[2019-07-12] MEDS: Ketorolac 30 MG/ML VIAL (09:47)
--- NOTE | 2019-07-12 10:51 | PGE_ITS ---
Date of Service Date of service: 07/12/19 Time of Service: 10:51 Assessment and Plan Assessment and plan (1) Closed intertrochanteric fracture of right hip: Status: Acute Assessment and plan: surgical repair today, ortho will be Qualifiers: Encounter type: initial encounter Fracture alignment: nondisplaced Qualified Code(s): S72.144A - Nondisplaced intertrochanteric fracture of right femur, initial encounter for closed fracture (2) Essential hypertension: Status: Chronic Assessment and plan: continue monitor and adjust meds as needed. (3) DVT prophylaxis: Status: Acute Assessment and plan: DVT prophylaxis per orthopedics (4) Discharge planning issues: Status: Acute Assessment and plan: will likely need rehab prior to returning home. case management will be following. Subjective Subjective Interval history since last seen: surgical repair today, patient tolerated well no issues. pain is well managed, tolerated oral. no complaints Exam Const General: cooperative, healthy appearing, comfortable and no acute distress Nutritional Appearance: average body habitus Orientation: alert, awake and oriented x3 HENMT Head: normal to inspection, normocephalic and atraumatic Mouth: oral mucosae normal Resp Effort & Inspection: normal respiratory effort and able to speak in complete sentences Auscultation: clear to auscultation bilaterally and diminished lung sounds bilaterally (bases) Cardio Rate: regular rate Rhythm: regular rhythm GI Inspection: normal to inspection Palpation: soft Auscultation: normal bowel sounds Skin Lesions: lesion noted (surgical dressing clean dry and intact) Rashes: no rashes Neuro General: patient alert, patient awake and patient oriented x3 Cognition: normal cognition Speech: speech normal Sensory Exam: no sensory deficits noted Extrem Right lower extremity: edema (trace) Objective Objective Clinical Data: Abnormal lab results 07/11/19 07/11/19 07/11/19 Range/Units 17:07 17:07 21:55 WBC 12.81 H (4.4-10.8) k/cumm RBC (4.00-5.20) m/cumm Hgb (12.0-15.5) g/dL Hct (36.0-46.0) % RDW (11.7-14.6) % MPV 12.3 H (8.0-11.0) fL Absolute Neutrophils 10.99 H (1.2-6.7) k/cumm Absolute Lymphocytes 0.99 L (1.2-3.4) k/cumm Absolute Monocytes 0.77 H (0.11-0.7) k/cumm BUN 23 H (7-18) mg/dL Glucose 148 H (74-106) mg/dL Total Protein (6.4-8.2) g/dL Albumin (3.4-5.0) g/dL Ur Specific [place] >= 1.030 H (1.005-1.025) Urine Ketones 40 H (Negative) mg/dL Urine Blood Trace-intact H (Negative) 07/12/19 07/12/19 Range/Units 06:52 06:57 WBC (4.4-10.8) k/cumm RBC 3.76 L (4.00-5.20) m/cumm Hgb 11.4 L D (12.0-15.5) g/dL Hct 33.9 L (36.0-46.0) % RDW 14.9 H (11.7-14.6) % MPV 12.5 H (8.0-11.0) fL Absolute Neutrophils (1.2-6.7) k/cumm Absolute Lymphocytes (1.2-3.4) k/cumm Absolute Monocytes (0.11-0.7) k/cumm BUN 25 H (7-18) mg/dL Glucose (74-106) mg/dL Total Protein 6.2 L (6.4-8.2) g/dL Albumin 3.1 L (3.4-5.0) g/dL Ur Specific [place] (1.005-1.025) Urine Ketones (Negative) mg/dL Urine Blood (Negative) Vital Signs Temperature 37.0 C 07/12/19 07:25 Temperature Source Temporal Artery Scan 07/12/19 07:25 Pulse 71 07/12/19 07:25 Pulse Rhythm Regular 07/12/19 01:47 Pulse 97 H 07/11/19 19:30 Respiratory Rate 18 07/12/19 07:25 Respiratory Effort Non-Labored 07/12/19 01:47 Respiratory Depth Normal 07/12/19 01:47 Respiratory Pattern Normal 07/12/19 01:47 Blood Pressure 167/73 H 07/12/19 07:25 Blood Pressure Mean 91 07/11/19 19:16 Blood Pressure Position Left Lateral 07/11/19 16:23 Pulse Oximetry 98 07/12/19 07:25 Oxygen Delivery Method Room Air 07/12/19 07:25 Oxygen Flow Rate 0 07/12/19 07:25 Pain Level 4 07/12/19 07:25 Comment 07/11/19 20:05 Intake & Output 07/11/19 07/11/19 07/12/19 11:59 23:59 11:59 Intake Total 761.667 / 761.667 Output Total 250 / 250 150 / 150 Balance -240 / -240 611.667 / 611.667 Weight 57.2 kg 54.9 kg Intake: IV 761.667 / 761.667 Output: Urine 250 / 250 150 / 150 Other: Urine Color Yellow Light Carli Urine Appearance Clear Clear Laboratory Results WBC 8.22 k/cumm (4.4-10.8) D 07/12/19 06:57 RBC 3.76 m/cumm (4.00-5.20) L 07/12/19 06:57 Hgb 11.4 g/dL (12.0-15.5) L D 07/12/19 06:57 Hct 33.9 % (36.0-46.0) L 07/12/19 06:57 MCV 90.2 fL (80-95) 07/12/19 06:57 MCH 30.3 pg (27.0-33.0) 07/12/19 06:57 MCHC 33.6 g/dL (32.0-36.0) 07/12/19 06:57 RDW 14.9 % (11.7-14.6) H 07/12/19 06:57 Plt Count 138 x1000/uL (130-400) 07/12/19 06:57 MPV 12.5 fL (8.0-11.0) H 07/12/19 06:57 Immature Gran % 0.2 % 07/11/19 17:07 Neutrophils % 85.8 07/11/19 17:07 Lymphocytes % 7.7 07/11/19 17:07 Monocytes % 6.0 07/11/19 17:07 Eosinophils % 0.1 07/11/19 17:07 Basophils % 0.2 07/11/19 17:07 Absolute Neutrophils 10.99 k/cumm (1.2-6.7) H 07/11/19 17:07 Absolute Lymphocytes 0.99 k/cumm (1.2-3.4) L 07/11/19 17:07 Absolute Monocytes 0.77 k/cumm (0.11-0.7) H 07/11/19 17:07 Absolute Eosinophils 0.01 k/cumm (0.0-0.7) 07/11/19 17:07 Absolute Basophils 0.03 k/cumm (0.0-0.2) 07/11/19 17:07 Sodium 139 mmol/L (136-145) 07/12/19 06:52 Potassium 4.1 mmol/L (3.5-5.1) 07/12/19 06:52 Chloride 107 mmol/L (98-107) 07/12/19 06:52 Carbon Dioxide 23.2 mmol/L (21.0-32.0) 07/12/19 06:52 Anion Gap 8.8 mmol/L (3-11) 07/12/19 06:52 BUN 25 mg/dL (7-18) H 07/12/19 06:52 Creatinine 1.01 mg/dL (0.55-1.02) 07/12/19 06:52 Estimated GFR/1.73 m2 53.15 (mL/min/1.73m2) 07/12/19 06:52 Glucose 106 mg/dL (74-106) 07/12/19 06:52 Calcium 8.8 mg/dL (8.5-10.1) 07/12/19 06:52 Magnesium 2.0 mg/dL (1.8-2.4) 07/11/19 17:07 Total Bilirubin 0.7 mg/dL (0.2-1.0) 07/12/19 06:52 AST 20 U/L (15-37) 07/12/19 06:52 ALT 17 U/L (14-59) 07/12/19 06:52 Alkaline Phosphatase 95 U/L (46-116) 07/12/19 06:52 Troponin I 0.06 ng/Ml (<0.06) 07/11/19 17:07 Total Protein 6.2 g/dL (6.4-8.2) L 07/12/19 06:52 Albumin 3.1 g/dL (3.4-5.0) L 07/12/19 06:52 Urine Color Yellow (Yellow) 07/11/19 21:55 Urine Clarity Clear (Clear) 07/11/19 21:55 Urine pH 6.0 (5-8) 07/11/19 21:55 Ur Specific [place] >= 1.030 (1.005-1.025) H 07/11/19 21:55 Urine Protein Negative mg/dL (Negative) 07/11/19 21:55 Urine Ketones 40 mg/dL (Negative) H 07/11/19 21:55 Urine Blood Trace-intact (Negative) H 07/11/19 21:55 Urine Nitrite Negative (Negative) 07/11/19 21:55 Urine Bilirubin Negative (Negative) 07/11/19 21:55 Urine Urobilinogen 0.2 EU/dL (Up TO 0.2) 07/11/19 21:55 Ur Leukocyte Esterase Negative (Negative) 07/11/19 21:55 Urine RBC 0-2 HPF (0-2) 07/11/19 21:55 Urine WBC Negative HPF (0-5) 07/11/19 21:55 Ur Epithelial Cells Negative HPF (Negative) 07/11/19 21:55 Urine Crystals Negative HPF (Negative) 07/11/19 21:55 Urine Bacteria Rare HPF (Negative) 07/11/19 21:55 Urine Casts Negative LPF (Negative) 07/11/19 21:55 Urine Mucus Trace (Negative) 07/11/19 21:55 Urine Other Negative (Negative) 07/11/19 21:55 Ur Culture Indicated? No 07/11/19 21:55 Urine Glucose Negative mg/dL (Negative) 07/11/19 21:55
--- NOTE | 2019-07-12 11:35 | ROE_ITS ---
Date of service: 07/12/19 Time of Service: 11:35 Operative Note Operative Note DATE OF PROCEDURE: 07/12/19 PRE-OP DIAGNOSIS: RIGHT Intertrochanteric Femur Fracture POST-OP DIAGNOSIS: same PROCEDURE: Right Intramedullary Fixation of Proximal Femur Fracture SURGEON: Bhavin Garzon LOCK UP WORKER: Sherry Qiu ANESTHESIA: GETA ESTIMATED BLOOD LOSS: 400 PATHOLOGY: none sent COMPLICATIONS: None Patient was transported to: PACU Patient's condition: stable Implants: Dep[employer]-Synthes TFNA 11mm x 170mm Indications: Allison is a 79-year-old active female who presented to the Emergency Department after a fall. X-rays confirmed the diagnosis of a right comminuted intertrochanteric fracture of the proximal femur. I reviewed the possible treatment options and given the fracture of the femur, I recommended operative fixation. I discussed the technical details of the surgery. I reviewed the risks such as bleeding, infection, pain, stiffness, malunion, nonunion, hardware prominence, hardware faiilure, malrotation, avascular necrosis, blood clot. Despite these risks, [gender] agreed to proceed. Findings: There was a fracture of the proximal femur. It was unable to be reduced by external manipulation of the leg. An open incision was made in line with the expected incision for the helical blade insertion. There is anterior musculature impaled on the distal end of the anterior fragment of the proximal femur. This was released and then held reduced with a clamp. A short TFNA nail was then applied without difficulty. Procedure Description: Allison was greeted in the preoperative area. Consent was previously reviewed and signed. Once in the operating room, anesthesia was administered. The patient was transferred to the fracture table in the supine position. She was positioned onto the perineal post. All bony prominences were well padded. The arm of the operative side was then placed across the chest and secured. The nonoperative leg was scissored and secured to the traction boom with a pillow and tape. The operative limb was placed in the traction boot and padded and secured. A gentle reduction was then performed with traction and internal rotation and gentle external manipulation. After multiple attempts I was unable to obtain adequate reduction. Therefore the plan was for an open reduction. A single dose of TXA, 1 gram, was then administered IV. Prophylactic antibio tics, cefazolin 2 grams, was given for prophylactic antibiotics. A timeout was performed for safe surgery. The right leg was prepped with Chloraprep. A shower curtain drape was placed. Using C arm repeat manipulation of the leg was performed but was unable to obtain good reduction. Therefore, I made an opening incision at the expected level of the helical blade insertion site. This was a 6 cm incision through the skin, soft tissue, and IT band. The vastus lateralis fibers were split and were noted to be stuck between the lateral pieces of the greater trochanter. In addition, there was notable flexion of the proximal fragment which was stuck within the anterior soft tissues. These muscular fibers which are interposed between the anterior piece and the shaft release manually. A clamp was then placed over this and held in position. This afforded nearly anatomic reduction. Using fluoroscopy, the starting point was marked over the lateral hip, proximal to the tip of the greater trochanter. A 3cm incision was made through skin and the fascia of the gluteus musculature until the tip of the trochanter was palpable. The starting wire was placed onto the tip, just slightly on the media aspect, and centered in the AP plane. Using a tuyet, the starting guide wire was buried into the bone. A lateral x-ray confirmed appropriate position and the guidewire was advanced to the level of the lesser trochanter. With a tissue protector, the proximal femur was opened with the opening reamer. The short TFNA was chosen for this case and a Synthes TFNA [id number] nail was selected and opened on the back table. The nail was assembled to the aiming arm on the back table and confirmed to be aligned with the triple sleeve for blade insertion. Using manual force the nail was advanced into the femur. A few light mallet blows advanced the nail to its appropriate position. The triple sleeve was inserted through the targeting arm and the skin, soft tissue, and IT band was then incised. The triple sleeve was advanced down to the lateral femur. A guidewire was advanced into the femoral head where it was noted to be centered. A lateral x-ray was used to confirm centered positioning on the lateral. Happy with the length of the guidewire, this was measured. A 95 mm helical blade was opened. The lateral cortex was opened and the path of the blade was reamed with a tapered reamer to appropriate depth. The helical blade was malletted into position and confirmed to be appropriately located on fluoroscopy. The set screw was advanced to a half turn shy of fully tightened, allowing for the helical blade to slide. The targeting device was removed. AP and lateral x-rays of the hip confirmed appropriate positioning within the femur and with good alignment of the fracture. Using the targeting arm, the skin was incised for placement of the distal locking screw. The trochar was inserted through the skin and IT band down onto the lateral cortex of the femur. The 4.2mm drill was advanced across the femur however it went posterior to the nail. Therefore the targeting arm was removed and this was done with a perfect qawalangin technique. The C-arm was brought into obtain a perfect qawalangin of the oblong hole through the distal aspect of the nail. Once this was obtained the drill was positioned accordingly and drilled through the near cortex, through the nail, and then through the far cortex. A depth gauge was used to check the length of the screw and a 34 mm 5.0mm screw was placed. Final x-rays were then obtained. The wounds were thoroughly irrigated. A cocktail consisting of 50cc of 0.5% bupivacaine, 30mg Ketorolac, and 10cc of Exparel was injected throughout the wounds both deep and superficially. The deep fascia of the proximal two wounds was reapproximated with a 0 Vicryl. The deep tisses were closed with a 2-0 Vicryl and the skin was closed with a running subcuticular Monocryl. The wounds were dressed with a Mepilex silver dressing. At the end of the case, all counts were correct. Allison tolerated the procedure well without known complication and was taken to the PACU for recovery. There was more blood loss than usual given the open nature of the reduction necessary. However, she was stable throughout the case. Physical therapy will start post-operatively, weigh-bearing as tolerated with assistive devices. Anticoagulation will start within 12-24 hours. 3 doses of post-operative antibitiocis for prophylaxis will be administered.
[2019-07-12 11:51] LABS: Creatine Kinase 170 U/L (26-192)
[2019-07-12] MEDS: Normal Saline 1,000 ML 80 ML IV (12:35)
--- NOTE | 2019-07-12 13:37 | CHAPLAIN ---
I received a call from Kelsea's dry color mixer, Rev. Beena Lilly, who asked me to check in on Kelsea. During my conversation with Kelsea, she gave me permission to contact Beena. Kelsea had surgery this morning and was resting in bed when I visited this afternoon. She told me about the surgery, and also about her fall. She was outside for about 2 and half hours before her found her, but she said she was dressed warmly with her ski-doo pants. Her will not be able to visit because of hospital restrictions at this time, but Kelsea said they have spoken by phone. She seems to be comfortable being here. I will continue to visit.
[2019-07-12] MEDS: Acetaminophen 500 MG TAB PO ×2 (13:52→19:52)
[2019-07-12] MEDS: ceFAZolin 1 GM/50 ML BAG IVPB ×2 (13:53→22:01)
--- NOTE | 2019-07-12 14:50 | NUR.NOTE ---
Nursing Note: Pt returned from PACU awake and alert. VSS. Pt anxious to get OOB. [employer]. pain 04/28. denies hunger. NS @ 80 ml's/hr running. CMST's WNL. Palpable pulse, swelling noted to right hip, +2.
[2019-07-13] MEDS: Normal Saline 1,000 ML 80 ML IV (00:21)
[2019-07-13] MEDS: Ketorolac 15 MG/ML VIAL IVP (02:46)
[2019-07-13] MEDS: Normal Saline Flush 10 ML SYR IVP (02:48)
[2019-07-13] MEDS: ceFAZolin 1 GM/50 ML BAG IVPB (06:50)
[2019-07-13 07:30] VITALS: BP 133/69; PULSE 90; RESP 18; TEMP 36.7; O2SAT 97
[2019-07-13] MEDS: amLODIPine 2.5 MG TAB PO (07:31)
[2019-07-13] MEDS: Acetaminophen 500 MG TAB PO ×2 (07:31→13:28)
--- NOTE | 2019-07-13 08:02 | IN_ITS ---
PT Notes Visit Reasons: RIGHT INTERTROCHANTERIC FEMUR FRACTURE Inpatient Physical Therapy Evaluation Date: July 13, 2019 Referring Doctor: Dr. 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 She had severe pain and could not stand and was in the snow for a couple of hours before her found her. She was dressed appropriately and did not have hypothermia or evidence of further muscle injury. She is very active and usually walks daily. PMHX: Medical History Acute idiopathic pericarditis (Resolved 07/23/17) Acute pericarditis Chest pain at rest (Resolved 08/20/16) Thought to be related to adverse reaction to Fosamax (esophagitis?) Essential hypertension (Chronic) Hyperlipidemia, unspecified (Chronic) 02/2017 labwork: 10-year ASCVD ~25.1% --> pt declines statins Lung nodule (Chronic) RUL noted incidentally 03/17/[address] carried out during workup for rectal polyp --> 04/04/19 [facility] [place] Thoracic Surgery consult and PET scan showing non-FDG avid lesion most c/w scar tissue --> plan for 3 vs. 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 12 stairs with railing on both sides entering the house. Multi level home but bedroom, bathroom and kitchen all on first floor. Current Functional Limitations: [] Equipment Owned/DME: FWW, grab bars, shower chair Subjective: Patient states she is not experiencing any pain. Had a restful night. Is anxious to go home. She talked with the doctor who said it was and the plan for discharge home today with the assumption that she will be having some help by 2 young adults assisting into the home. Objective: General Observation: IV access to left upper extremity forearm Mental Status: Alert and oriented x3 Pain: 0/10 ROM: Right Upper Extremity: Within normal limits Left Upper Extremity: Within normal limits Right Lower Extremity: Within normal limits Left Lower Extremity: Active hip flexion in supine 45 degrees using heel slide. She is able to sit in recliner chair and wheelchair assuming 80 degrees of hip flexion. Knee flexion 105 degrees, ankle range of motion within normal limits Strength: Right Upper Extremity: 4+/5 throughout Left Upper Extremity: 4+/5 throughout Right Lower Extremity: Visible and palpable quadricep contraction via quad set. Unable to perform straight leg raise. Hamstring 4/5, ankle dorsiflexion and plantarflexion 4/5 Left Lower Extremity: 5/5 quads, hamstrings, hip flexion Sensation: Reports intact sensation light touch bilateral lower extremities Bed Mobility/Transfers: Supine to sit: Min assist for positioning right lower extremity. Head of bed 35 degrees. Sit to stand: Min assist x1 to front wheeled walker Stand to sit: Contact-guard x1 from front wheeled walker to wheelchair and Ortho recliner. Verbal cues were issued for positioning of right lower extremity Gait: 15 feet x 4 with front wheeled walker and contact-guard x1. Patient is weightbearing as tolerated and did display nearly 25 to 50% body weight during stance phase with use of front wheel walker. Balance: Static Sitting: Good Dynamic Sitting: Good Static Standing: Good Dynamic Standing: Fair although Special Tests: Mobility Limitations Standardized Measure [facility] AM-PAC 6 clicks Basic Mobility Inpatient Short Form: Raw Score: 19 Standardized Score:45.44 CMS Score: 41.77 CMS Modifier: CK Informed Consent/Education: Patient instructed in purpose of PT consult and plan of care. Assessment: Patient is a 79 year old female referred to physical therapy services with the diagnosis of status post intramedullarynailing of right intertrochanteric secondary to hip fracture. Patient presents with clinical signs and symptoms consistent with post operative diagnosis. She currently demonstrates the following impairment level findings: 1. Decreased strength to RLE hip and knee major muscle groups. 2. Impaired standing balance 3. Impaired activity tolerance 4. Limitation of joint range of motion right hip Impairments are contributing to the following functional limitations: 1: Increased dependence with transfers 2. Inability to safely ambulate without assisstive device and physical assistance 3. Increase completion time for mobility ADL performance 4. Increased fall risk. 5. Inability to negotiate stairs alone safely Patient is assessed as a [] Low 13974 X Moderate 32388 [] High 91957 complexity based on the following: History: see above Examination: see above Presentation: evolving Decision Making: Moderate 18550 Treatment: Patient was issued home program for quad sets, glutes sets, ankle pumps, heel slides and long arc quads. Also worked on stair negotiation and gait training with front wheeled walker. Discussion with orthopedics was to have patient discharged home today. She will be assisted with her neighbor and her neighbor's for transitioning into the home. Did have verbal conversation with this neighbor regarding mechanics for stair negotiation using gait belt. Plan of Care/Treatment Plan: Discharge from PT. Patient will be discharged from hospital once medically cleared. DISCHARGE RECOMMENDATIONS: Home health PT TREATMENT CODE/[place]: [place] [id number] 9:15-10 o'clock Disclaimer: This note was created using Joost voice recognition software. It was reviewed for major content. However, there may be multiple small discrepancies and errors due to the voice recognition aspects of the software. Thank you for this consult Mike Medrano PT,DPT
--- NOTE | 2019-07-13 08:42 | W.PM.DS.N ---
Date of service: 07/13/19 Time of Service: 08:43 DS: Diagnosis Discharge Diagnosis (1) Closed intertrochanteric fracture of right hip: Status: Acute (2) Essential hypertension: Status: Chronic (3) DVT prophylaxis: Status: Acute (4) Discharge planning issues: Status: Acute Discharge Plan Disposition Patient Disposition: HOME W/HOME HEALTH SERVICE Condition: Improving Discharge Details Chief Complaint: Orthopedic Clinical Impression: Closed intertrochanteric fracture of right hip, Fall due to ice or snow Reason For Visit: RIGHT INTERTROCHANTERIC FEMUR FRACTURE Admit Date/Time: 07/11/19 19:10 Admit Provider: Bhavin Garzon Attending Provider: Bhavin Garzon Primary Care Provider: Isatu Soni ED Provider: Martin Barrow Hospital Course Hospital Course: Allison was admitted to the medical surgical floor following ED diagnosis of a right hip fracture. A fascia iliac block was provided in the emergency department for pain relief. On hospital day #2 she was taken to the operating room for interventional nail fixation of the right intertrochanteric hip fracture. Her pain is managed on oral agents. She is able to mobilize with physical therapy. She was medically stable without any acute changes. She was deemed safe for discharge home. Home Meds and New Rx's Prescriptions: New celecoxib 200 mg capsule 200 mg PO BID PRN (Reason: pain) Qty: 60 RF: 1 hydrocodone-acetaminophen 5-325 mg tablet 1 tab PO Q4H PRN (Reason: pain) Qty: 14 RF: 0 aspirin 81 mg tablet,delayed release (DR/EC) 81 mg PO BID Qty: 60 RF: 0 acetaminophen 500 mg tablet 500 mg PO Q6H PRN PRN (Reason: pain) Qty: 60 RF: 3 Continued docusate sodium [Colace] 100 mg capsule 100 mg PO DAILY RF: 0 hydrocortisone 2.5 % cream with perineal applicator 1 applic DC TID PRN (Reason: hemorrhoids) Qty: 30 RF: 2 multivitamin [Daily Multi-Vitamin] 1 EACH tablet 1 ea PO DAILY RF: 0 amlodipine 2.5 mg tablet 2.5 mg PO DAILY Qty: 90 RF: 3 Discharge Instructions Additional Instructions: Dr. Garzon?s Discharge Instructions Activity: The most important activity is to walk, but it will take time to get walking. You should use a walker until you are able to walk without a limp, which may take 6 weeks. You have no restrictions on movement or positioning, but do not try to force what you do. You will find some stiffness and weakness with hip flexion (lifting your knee). Do not try to strengthen this too early, continue to practice walking and stairs and this will come. Stairs may need to be climbed on your rear. It will take 2-3 weeks for pain to start turning the corner. - You will have home health physical therapy prescribed. - You should wear the KYLIE hose on both legs for 2 weeks. Dressing: Keep the surgical dressing in place for at least one week. After the first week it may be removed and replace with light gauze and tape or nothing. It may get wet after 3 days but avoid soaking the dressing, covering with cling wrap can be helpful. If it gets wet, just lightly pat dry. Medications: - You should take Tylenol and an anti-inflammatory Celebrex as your primary pain control medications - You have been prescribed a stronger pain medication Hydrocodone for breakthrough pain, take as needed as prescribed. - You will be taking Aspirin 81mg twice a day for DVT prevention unless instructed otherwise. - If you have constipation you should take Colace or Miralax (both [id number]). It takes most people 3-4 days to have a bowel movement. Follow-up: 2 week phone follow-up and 6 week office visit Please contact Dr. Garzon at the office, , or on his cell, , if there are any issues. 1. Encounter Date and Reason I certify that NESTOR CAST was seen by Bhavin Garzon MD on 07/13/19 and that I had a [id number] encounter with this patient that meets the physician face to face encounter requirements. 2. Clinical Findings Supporting Skilled Need and Homebound Status I certify that home health services are medically necessary, include either intermittent senior care and/or physical/speech therapy, and that this patient is homebound in that absences from the home require considerable and taxing effort and are infrequent or of short duration, or are attributable to the need to receive medical care. [X] (a) Attached documentation from encounter provides clinical findings supporting skilled need and homebound status (including what assistance patient requires to leave the home). The encounter with the patient was in whole, or in part, for the following medical condition, which is the primary reason for home health care: RIGHT INTERTROCHANTERIC FEMUR FRACTURE Longterm: Physical Therapy: Allison would benefit from home health PT due to notable weakness and pain and stiffness after intramedullary nail fixation of the right intertrochanteric femur fracture. She has notable weakness and gait abnormalities which would benefit from PT. Speech Therapy: Homebound: Allison is homebound due to gait abnormalities and weakness. She is unable to leave her home unassisted. 3. Certification and Authentication I certify that I composed the above information based on my clinical judgement relating to this patient's medical condition and, if applicable, clinical findings communicated to me by the NPP or inpatient physician who performed the Home Health Referral. All further orders will be obtained through Dr. Garzon. Referrals: Bhavin Garzon MD [ [facility]FF PHYSICIAN] - Activity:: Activity as Tolerated Equipment/Supplies:: Walker Diet:: As Tolerated Discharge Orders Discharge Orders: Discharge Order (Routine); Ordered 07/13/19 Ordered By: Bhavin Garzon DS: Summary Status at Discharge Functional status at discharge: uses cane/walker Overall status at discharge: patient is progressing back to baseline Mental Status: mental status grossly normal Speech and Movement: speech and movement normal Mood: congruent mood Affect: normal affect Exam Psych Mental Status: mental status grossly normal Speech and Movement: speech and movement normal Mood: congruent mood Affect: normal affect DS: Data Vitals/I&O Vitals and I&O: Vital Signs Temperature 36.7 C 07/13/19 07:30 Temperature Source Temporal Artery Scan 07/13/19 07:30 Pulse 90 07/13/19 07:30 Pulse Rhythm Regular 07/12/19 23:48 Pulse 97 H 07/11/19 19:30 Respiratory Rate 18 07/13/19 07:30 Respiratory Effort Non-Labored 07/12/19 23:48 Respiratory Depth Normal 07/12/19 23:48 Respiratory Pattern Normal 07/12/19 23:48 Blood Pressure 133/69 07/13/19 07:30 Blood Pressure Mean 91 07/11/19 19:16 Blood Pressure Position Left Lateral 07/11/19 16:23 Pulse Oximetry 97 07/13/19 07:30 Respiratory End-tidal CO2 32 07/12/19 12:15 Oxygen Delivery Method Room Air 07/13/19 07:30 Oxygen Flow Rate 0 07/13/19 07:30 Pain Level 0 07/13/19 07:30 Comment 07/12/19 14:10 Intake & Output 07/12/19 07/12/19 07/13/19 11:59 23:59 11:59 Intake Total 1510.000 / 2330.000 820 / 2330.000 941.333 / 941.333 Output Total 550 / 850 300 / 850 400 / 400 Balance 960.000 / 1480.000 520 / 1480.000 541.333 / 541.333 Weight 54.9 kg 54.6 kg Intake: IV 1510.000 / 1910.000 400 / 1910.000 941.333 / 941.333 Oral 420 / 420 Output: Urine 150 / 450 300 / 450 400 / 400 Estimated Blood Loss 400 / 400 Other: Urine Color Light Carli Yellow Yellow Urine Appearance Clear Clear Clear Emesis Description None None Data Completed and Pending Labs on day of discharge: Labs from last 24 hours 07/12/19 06:52 Creatine Kinase 170 PFSH Medical History Acute idiopathic pericarditis (Resolved 07/23/17) Acute pericarditis Chest pain at rest (Resolved 08/20/16) Thought to be related to adverse reaction to Fosamax (esophagitis?) Essential hypertension (Chronic) Hyperlipidemia, unspecified (Chronic) 02/2017 labwork: 10-year ASCVD ~25.1% --> pt declines statins Lung nodule (Chronic) RUL noted incidentally 03/17/[address] carried out during workup for rectal polyp --> [place] [facility] [place] consult and PET scan showing non-FDG avid lesion most c/w scar tissue --> plan for 3 vs. 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 Essential hypertension Migraines Neoplasm Breast Father , Leukemia at age 50. TB (tuberculosis) Neoplasm Leukemia Brother Essential hypertension Social History Smoking/Tobacco Use Status: Former Tobacco Use Alcohol Intake: current Alcohol Intake frequency: 0-2 drinks per day Alcohol type: wine Drug use: Rarely Substance use type: marijuana Details: Patient states had brownie a couple weeks ago. Adopted: No Caregiver/Support person: No Foster care: No Household members: spouse Number of Children: 1 Current gender identity: female What type of physical activity do you participate in: regular exercise Duration: 45-60 minutes/day Frequency: daily Seatbelt use: always Water heater temp set <120 deg: Yes Working smoke detector in home: Yes Fire extinguisher in home: Yes Carbon monox detector in home: Yes Firearms in home: Yes Firearms unloaded and locked: No Do you feel safe at home: Yes Do you feel safe in your relationship?: Yes Additional Social history: Patient reports is very active and takes walks every day.
[2019-07-13] MEDS: Celecoxib 200 MG CAP PO (09:00)
--- NOTE | 2019-07-13 09:47 | PDOC.CMDIS ---
LACE Index Scoring Tool - Questions: Length of Stay (in days): 2 Acuity (Admit via E.D.?): Yes E.D. Visits: 1 - Answers: Total Score: 6 Risk of Readmission: Low Risk Care Management Discharge Reason for Hospitalization: Closed Intertrochanteric fracture right hip Discharge Plan: Kelsea will be discharged home when medically ready per MD. Anticipate she will have [facility]; faxed referral. She will transport via private vehicle with a friend and follow up with Orthopedics as well as her PCP. Patient/Family Education Needs: Review of discharge instructions, discuss Ask Me Three. Services Needed at Discharge: DME Agency ([facility]), Home Health Care Services ([facility] )
[2019-07-13 11:44] VITALS: BP 127/71; PULSE 81; RESP 18; TEMP 36.9; O2SAT 97
== END 2019-07-13 14:00 | disposition home health service (06) | DRG 482 ==
LOC: ER 19:36 → MS 20:02
PROVIDERS: Family Medicine; Nurse Practitioner Acute Care; Admitting Provider Student in an Organized Health Care Education/Training Program; Emergency Provider Student in an Organized Health Care Education/Training Program; PCP Nurse Practitioner; Visit Provider Student in an Organized Health Care Education/Training Program
PROC: 0QS636Z Reposition Right Upper Femur with Intramedullary Internal Fixation Device, Percutaneous Approach (ICD-10-PCS; CPT 27245; principal; 2019-07-12 09:00)
DX: S72.141A Displaced intertrochanteric fracture of right femur, initial encounter for closed fracture (principal); W00.0XXA Fall on same level due to ice and snow, initial encounter; I10 Essential (primary) hypertension; M81.0 Age-related osteoporosis without current pathological fracture; E78.5 Hyperlipidemia, unspecified
CPT/HCPCS: 27245; 36415; 64447; 73552; 76942; 80053; 82550; 85027; 93005; 96374; 96375; 97162; 99222; 99223; 99233; 99253; 99285; NC; 72170; 73501; 81003; 81015; 83735; 84484; 85025; 93010; J0690; J1885; J2001; J2704; J3010

== ENCOUNTER → 2019-07-20 09:54 | Outpatient (BNVA) | payer MEDICARE, OTHER, SELFPAY | PROVIDERS: PCP Nurse Practitioner; Referring Provider Nurse Practitioner; Visit Provider Student in an Organized Health Care Education/Training Program | DX: S72.144D Nondisplaced intertrochanteric fracture of right femur, subsequent encounter for closed fracture with routine healing (principal); X58.XXXD Exposure to other specified factors, subsequent encounter; I10 Essential (primary) hypertension ==

== ENCOUNTER 2019-08-17 10:11 | Outpatient (CLI) | payer MEDICARE, OTHER, SELFPAY ==
--- NOTE | 2019-08-17 09:47 | DI.RAD_ITS ---
EXAM: XR HIP RT COMPLETE AP PELVIS CLINICAL HISTORY: right hip fracture s/p surgical intervention TECHNIQUE: COMPARISON: XR HIP RT IN OR from 07/12/2019 FINDINGS: Two views were obtained and show gamma nail in place transfixing intertrochanteric fracture of the fe mur, no gross interval change in alignment in comparison with intraoperative films of July 11. IMPRESSION:
== END 2019-08-17 10:31 ==
PROVIDERS: PCP Nurse Practitioner; Referring Provider Nurse Practitioner; Visit Provider Student in an Organized Health Care Education/Training Program
DX: S72.144D Nondisplaced intertrochanteric fracture of right femur, subsequent encounter for closed fracture with routine healing; X58.XXXD Exposure to other specified factors, subsequent encounter; I10 Essential (primary) hypertension
CPT/HCPCS: 73502

== ENCOUNTER 2019-08-30 01:24 | Outpatient (CLI) | payer MEDICARE, OTHER, SELFPAY ==
--- NOTE | 2019-07-13 14:32 | CHAPLAIN ---
Kelsea said she is expecting to be discharged today, as long as her neighbor, Paola, (an [facility] nurse) can help her up the 12 steps she needs to climb. Kelsea is part of [facility] [employer] [employer] and Kelsea gave me permission to contact Beena and let her know that Kelsea was headed home. Beena will continue to check in with Kelsea.
--- NOTE | 2019-08-30 | DI.DEXA_ITS ---
EXAM: XR DEXA BONE DENSITY W/WO JEANIE CLINICAL HISTORY: SCREENING FOR OSTEOPORISIS IN POSTMENOPAUSAL WOMAN, Z78.0 TECHNIQUE: COMPARISON: CR XR HIP RT COMPLETE AP PELVIS from 08/17/2019 FINDINGS: DEXA scan was performed according to the usual protocol. Left hip scanning shows T-score -3.7 with l eft femoral neck T-score -2.8. Left forearm scanning shows T-score -4.7. Lumbar spine scanning shows T-score -3.9. IMPRESSION: Findings consistent with osteoporosis. The lateral vertebral scanogram shows no evidence of a verteb ral compression fracture.
== END 2019-08-30 01:44 ==
PROVIDERS: PCP Nurse Practitioner; Visit Provider Nurse Practitioner
DX: M81.0 Age-related osteoporosis without current pathological fracture (principal); Z78.0 Asymptomatic menopausal state
CPT/HCPCS: 77080

== ENCOUNTER 2019-09-18 11:12 | Outpatient (CLI) | payer MEDICARE, OTHER, SELFPAY ==
--- NOTE | 2019-09-18 09:30 | DI.RAD_ITS ---
EXAM: XR KNEE RT 3V AP,LAT,REBEKA CLINICAL HISTORY: R knee pain TECHNIQUE: COMPARISON: No exams were available for comparison FINDINGS: Three views were obtained. There is mild bony demineralization. Cartilaginous joint spaces appear f airly well maintained as visualized. No specific bony abnormality seen. IMPRESSION:
--- NOTE | 2019-09-18 09:30 | DI.RAD_ITS ---
EXAM: XR HIP RT AP LAT ONLY CLINICAL HISTORY: R hip fx TECHNIQUE: COMPARISON: CR XR HIP RT COMPLETE AP PELVIS from 08/17/2019 CR XR DEXA BONE DENSITY W/WO JEANIE from 08/30/2019 FINDINGS: Two views were obtained previously described intertrochanteric fracture of the femur with gamma nail in place. Alignment appears essentially unchanged in comparison with previous films August 16. The hip joint appears well maintained. IMPRESSION:
== END 2019-09-18 11:32 ==
PROVIDERS: PCP Nurse Practitioner; Referring Provider Nurse Practitioner; Visit Provider Student in an Organized Health Care Education/Training Program
DX: M25.561 Pain in right knee (principal); S72.144D Nondisplaced intertrochanteric fracture of right femur, subsequent encounter for closed fracture with routine healing; X58.XXXD Exposure to other specified factors, subsequent encounter; M84.469A Pathological fracture, unspecified tibia and fibula, initial encounter for fracture; I10 Essential (primary) hypertension
CPT/HCPCS: 20610; 73562; 99214; 73502; J1040

== ENCOUNTER 2019-09-22 14:20 | Outpatient (REF) | payer MEDICARE, OTHER, SELFPAY ==
[2019-09-22 15:13] LABS: TSH (W/Ref FT4) 2.19 uIU/mL (0.36-3.74)
[2019-09-25 07:07] LABS: Vitamin D 25 Total 42.2 ng/ml (30-100)
[2019-09-25 12:37] LABS: Parathyroid Hormone,Intact 31 pg/mL (19-88)
== END 2019-09-22 14:40 ==
LOC: NCHCN 14:20
PROVIDERS: PCP Nurse Practitioner; Visit Provider Nurse Practitioner
DX: I10 Essential (primary) hypertension (principal); M81.0 Age-related osteoporosis without current pathological fracture
CPT/HCPCS: 82306; 83970; 84443

== ENCOUNTER 2019-10-16 06:14 | Day surgery (SDC) | payer MEDICARE, OTHER, SELFPAY ==
[2019-10-16 06:28] VITALS: BP 146/91; PULSE 89; RESP 18; TEMP 36.8; O2SAT 97
--- NOTE | 2019-10-16 06:39 | HPE_ITS ---
Date of service: 10/16/19 Time of Service: 06:39 Assessment and Plan Assessment and plan (1) Rectal pain: Status: Acute (2) Tubulovillous adenoma polyp of rectum: Status: Acute Assessment and plan: P\\ Colonoscopy under sedation The patient is here for Colonoscopy pre-op. Her last screening was in 2018 and was remarkable for tubulovillious adenoma. She has no family history of colon cancer. She has not had any bowel habit changes. -Discussed colonoscopy bowel prep as well as the procedure. Discussed possible complications of the procedure to include bleeding, pain, perforation, missed small lesion/polyp, sore throat, aspiration and adverse reaction to the medications. Questions were answered to patient?s satisfaction. No guarantees were implied or given. History of Present Illness Narrative: 79 y/o female with history of HTN, hperlipidemia and anal fissure presents for colonoscopy screening pre-op. Her last screening was in 2018 which was remarkable for tubulovillious adenoma. She denies a family history of colon cancer. She denies any changes in her bowel habits, reporting that she takes colace daily, follows a high fiber diet and drinks a lot of water throughout the day. She states that she has had intermittent straining with bowel movements and she has felt tearing at the edge of her perineum which is painful and sore. During urination this causes the area to sting. She reports in the past when this occurs, she has applied desitin with minimal improvement. She recently had this occur again and she reports feeling sore and that it doesn't seem to be healing as quickly. She denies black tarry stools, abdominal pain, diarrhea or constipation. She denies constitutional symptoms. Denies use of marijuana or any other recreational or illegal drugs. She denies chest pain, palpitations, dyspnea or dyspnea with exertion. She reports being very active participating in cross country skiing, snow shoeing and/or walking every day. She denies prior history or family history of adverse reactions or complications with anesthesia. Since she was seen in the office in June she has developed some bleeding and difficulty passing BM's. Review of Systems Constitutional Constitutional: Denies fever(s) and Denies headache(s) Eyes Eyes: Denies change in vision ENT Ears, Nose, Mouth, and Throat: Denies headache(s) Cardiovascular Cardiovascular: Denies chest pain, Denies chest pain at rest and Denies dyspnea Respiratory Respiratory: Denies cough and Denies dyspnea Gastrointestinal Gastrointestinal: Reports as per HPI Neurologic Neurologic: Denies headache(s) [facility] Medical History (Updated 10/16/19 @ 06:36 by Mesha Goldman) Abnormal colonoscopy (Acute) Acute idiopathic pericarditis (Resolved 07/23/17) Acute pericarditis Pt. states she had f/u with cardiology but has been since d/c from care, and stated she didn't need to follow up with [facility] unless symptoms came back Chest pain at rest (Resolved 08/20/16) Thought to be related to adverse reaction to Fosamax (esophagitis?) Pt. denies having any chest pain at rest, last time was 2+ years ago Essential hypertension (Chronic) Hx of fracture of right hip (Acute) Hyperlipidemia, unspecified (Chronic) 02/2017 labwork: 10-year ASCVD ~25.1% --> pt declines statins Lung nodule (Chronic) RUL noted incidentally 03/17/[address] carried out during workup for rectal polyp --> 04/04/19 [facility] [place] Thoracic Surgery consult and PET scan showing non-FDG avid lesion most c/w scar tissue --> plan for 3 vs. 6 mo f/u chest CT Pt. states onocology has dc'd her from care, unless new symtoms arise. 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) [facility] [place] Podiatry, R>L Osteoporosis, unspecified (Chronic) S/p failed tx with bisphosphonates (adverse reactions) Pityriasis rubra pilaris (Resolved 08/20/16) [facility] [place] Dermatology Tubulovillous adenoma polyp of rectum (Acute) 03/15/2018 colonoscopy Unspecified vertiginous syndromes and labyrinthine disorders (Resolved 08/20/16) Surgical History Bladder Suspension With correction of rectal prolapse at the same time H/O rectal polypectomy (Acute 04/15/18) Ligation of fallopian tube (~1972) Vaginal hysterectomy Family History (Updated 10/12/19 @ 12:35 by Mervin Loza) Mother , Breast CA at age 70. Essential hypertension Migraines Neoplasm Breast Father , Leukemia at age 50. TB (tuberculosis) Neoplasm Leukemia Brother Essential hypertension Heart disease Social History Smoking/Tobacco Use Status: Former Tobacco Use Quit Date: 04/19/84 Alcohol Intake: current Alcohol Intake frequency: 0-2 drinks per day Alcohol type: wine Drug use: Rarely Substance use type: marijuana Details: Patient states had brownie about three months. Alcohol: t-3, 5 ounces wine Adopted: No Caregiver/Support person: No Foster care: No Household members: spouse Number of Children: 1 Current gender identity: female What type of physical activity do you participate in: regular exercise Duration: 45-60 minutes/day Frequency: daily Seatbelt use: always Water heater temp set <120 deg: Yes Working smoke detector in home: Yes Fire extinguisher in home: Yes Carbon monox detector in home: Yes Firearms in home: Yes Firearms unloaded and locked: No Do you feel safe at home: Yes Do you feel safe in your relationship?: Yes Additional Social history: Patient reports is very active and takes walks every day. Meds Home Medications and Allergies Home Medications Medication Instructions Recorded Confirmed Type multivitamin [Daily Multi-Vitamin] 1 ea PO DAILY 08/28/16 10/16/19 History amlodipine 2.5 mg tablet 2.5 mg PO DAILY #90 tab-cap 02/24/18 10/16/19 Rx docusate sodium 100 mg capsule 100 mg PO DAILY 06/29/19 10/16/19 History hydrocortisone 2.5 % topical cream 1 applic KS TID PRN #30 gm 07/05/19 10/16/19 Rx with perineal applicator acetaminophen 500 mg tablet 1,000 mg PO TID PRN #90 tab 07/24/19 10/16/19 Rx ascorbate calcium (vitamin C) 1,000 mg PO DAILY 10/12/19 10/16/19 History calcium carbonate-vitamin D3 1 tab PO DAILY 10/12/19 10/16/19 History [Calcium 500 + D] cholecalciferol (vitamin D3) 125 125 mcg PO DAILY 10/12/19 10/16/19 History mcg (5,000 unit) capsule naproxen sodium [Aleve] 440 mg PO DAILY 10/12/19 10/16/19 History Allergies Allergy/AdvReac Type Severity Reaction Status Date / Time morphine Allergy Severe throat Unverified 06/29/20 06:33 closed up alendronate sodium Allergy Intermediate chest pain Unverified 10/16/19 06:33 [From Fosamax] celecoxib [From Celebrex] AdvReac Severe Diarrhea Unverified 10/16/19 06:33 propranolol HCl AdvReac Intermediate depression Unverified 10/16/19 06:33 [From Inderal LA] tramadol HCl [From Ultram] AdvReac Intermediate Got High Unverified 10/16/19 06:33 Exam Const General: cooperative, no acute distress and well developed Orientation: alert and oriented x3 HENMT Head: normocephalic and atraumatic Resp Effort & Inspection: normal respiratory effort Auscultation: clear to auscultation bilaterally Cardio Rate: regular rate Rhythm: regular rhythm Heart Sounds: no gallops, no murmurs and no rubs Results Last Vital Signs Temp 98.2 F 10/16/19 06:28 Pulse 89 10/16/19 06:28 Resp 18 10/16/19 06:28 BP 146/91 H 10/16/19 06:28 Pulse Ox 97 10/16/19 06:28
--- NOTE | 2019-10-16 06:39 | W.COLOREPORT ---
Date of service: 10/16/19 Time of Service: 07:32 Colonoscopy Report Date of procedure: 10/16/19 Pre-op diagnosis general: Hx of polyps, rectal pain and bleeding Post-op diagnosis procedure note: same (mild diverticulosis and rectal stricture) Procedure: Colonoscopy with dilatation of rectal stricture Surgeon: Lois Mckeon Anesthesia proc note operative: other (General/ ASA 2/ Arelis Viera, VE[employer]LE [employer]) Estimated blood loss (mL): 0 Pathology: none sent Complications: None Disposition: same day Indications: The patient is here for Colonoscopy pre-op. Her last screening was in 2018 and was remarkable for tubulovillious adenoma. She has no family history of colon cancer. She has not had any bowel habit changes. -Discussed colonoscopy bowel prep as well as the procedure. Discussed possible complications of the procedure to include bleeding, pain, perforation, missed small lesion/polyp, sore throat, aspiration and adverse reaction to the medications. Questions were answered to patient?s satisfaction. No guarantees were implied or given. Prep: Miralax/Dulcolax Procedure Start Time: :32 Procedure End Time: :56 Retraction Time: 16 minutes Findings: rectal stricture at site of previous large polyp mild divertculosis Procedure Description: After informed consent was obtained the patient was taken to the procedure room and placed in a left decubitous position. Monitors were applied and a time out was done. The patients name, date of , procedure, allergies to medications and metal in their body was reviewed. The patient was then sedated. Once sedated and comfortable a rectal exam was done. External exam revealed a skin tag at 12 o'clock. Internal exam revealed a normal sphincter tone and no palpable masses. There was scar tissue noted just past the dentate line. The scope was then introduced and retro-flexed. No internal hemorrhoids, masses or polyps were identified. The scope was then advanced to the cecum without difficulty. The ileocecal valve and appendiceal orifice were identified. The prep was good. The scope was then slowly retracted over 16 minutes back into the rectum. There were no polyps. There was mild diverticulosis of the sigmoid colon. The scar tissue was then dilated with a balloon to 18 mm. The scope was removed and the patient was woken up and taken back to Same day surgery in stable condition. The patient tolerated the procedure well and there were no immediate complications. Follow up: The patient should follow up in 3 years unless they develop changes in bowel habits or other new gastrointestinal complaints. She may need manual dilatation of the scar tissue. I will have her come back to the office when she has trouble again passing stool and will try to teach her to self dilate.
--- NOTE | 2019-10-16 06:43 | W.PM.DSUDISC ---
Discharge Plan Disposition Patient Disposition: HOME Condition: Good Discharge Details Reason For Visit: hx of polyps, rectal pain Attending Provider: Lois Mckeon Primary Care Provider: Isatu Soni Home Meds and New Rx's Prescriptions: Continued cholecalciferol (vitamin D3) 125 mcg (5,000 unit) capsule 125 mcg PO DAILY RF: 0 docusate sodium [Colace] 100 mg capsule 100 mg PO DAILY RF: 0 hydrocortisone 2.5 % cream with perineal applicator 1 applic MD TID PRN (Reason: hemorrhoids) Qty: 30 RF: 2 multivitamin [Daily Multi-Vitamin] 1 EACH tablet 1 ea PO DAILY RF: 0 amlodipine 2.5 mg tablet 2.5 mg PO DAILY Qty: 90 RF: 3 acetaminophen 500 mg tablet 1,000 mg PO TID PRN (Reason: fever) Qty: 90 RF: 0 ascorbate calcium (vitamin C) 500 mg Tablet 1,000 mg PO DAILY RF: 0 naproxen sodium [Aleve] 220 mg Tablet 440 mg PO DAILY RF: 0 calcium carbonate-vitamin D3 [Calcium 500 + D] 500 mg(1,250mg) -200 unit Tablet 1 tab PO DAILY RF: 0 Discontinued polyethylene glycol 3350 17 gram/dose powder 238 g PO ONCE Qty: 238 RF: 0 bisacodyl [Dulcolax (bisacodyl)] 5 mg tablet,delayed release (DR/EC) 5 mg PO ONCE Qty: 4 RF: 0 Discharge Instructions Instructions: Diverticulosis (DC) Additional Instructions: Findings: scar tissue mild diverticulosis Follow up: 3 years for next colonoscopy in the office if you continue to have or re-develop issues with having bowel movements Please call if you develop: fevers >101.5 Nausea or Vomiting Abdominal pain that is not transient DAY SURGERY UNIT POST ENDOSCOPY INSTRUCTIONS 1. Because there will be medication in your system for the next 24 hours, you may feel a little sleepy. Your coordination will be affected. Therefore: a. Do not drive or operate dangerous equipment for 24 hours. b. Do not drink alcohol beverages for 24 hours (not even beer). c. Plan to go home and rest for the day. 2. Generally there are no restrictions on your activity after a day or so has gone by, but you may feel a bit fatigued for a few days. 3 After you arrive home you may have a light meal and return to a normal diet as you can tolerate it without feeling sick to your stomach. 4. After surgery, you may feel pain or discomfort. This should be only transient, but if it persists please contact your doctor. 5. If there are any questions regarding the findings of your procedure, please feel free to contact your doctor. 6. If you are unable to contact your doctor with a problem, contact the hospital at [phone]. 7. Continue all your regular medications unless directed otherwise. I understand the above instructions and have no questions. Signature of Patient or Responsible Adult Escort Date/Time Name of Responsible Adult Escort Signature of Nurse Date/Time Activity:: Activity as Tolerated Diet:: high fiber Discharge Orders Discharge Orders: Discharge Order (Routine); Ordered 10/16/19 Ordered By: Lois Mckeon DS: Diagnosis Discharge Diagnosis (1) Rectal pain: Status: Acute (2) Tubulovillous adenoma polyp of rectum: Status: Acute
[2019-10-16] MEDS: Lactated Ringers 1,000 ML 80 ML IV (06:45)
[2019-10-16 08:35] VITALS: BP 143/88; PULSE 81; RESP 18; TEMP 36.4; O2SAT 96
== END 2019-10-16 08:59 | disposition home or self-care (01) ==
PROVIDERS: PCP Nurse Practitioner; Visit Provider Surgery
PROC: 0DJD8ZZ Inspection of Lower Intestinal Tract, Via Natural or Artificial Opening Endoscopic (ICD-10-PCS; CPT 45378; principal; 2019-10-16 07:30)
DX: Z12.11 Encounter for screening for malignant neoplasm of colon (principal); Z86.010 Personal history of colon polyps; K62.89 Other specified diseases of anus and rectum; K62.5 Hemorrhage of anus and rectum; K57.30 Diverticulosis of large intestine without perforation or abscess without bleeding; K62.4 Stenosis of anus and rectum; K64.4 Residual hemorrhoidal skin tags; I10 Essential (primary) hypertension
CPT/HCPCS: 45386; NC; J2001

== ENCOUNTER → 2019-10-30 09:30 | Outpatient (BNVA) | payer MEDICARE, OTHER, SELFPAY | PROVIDERS: PCP Nurse Practitioner; Referring Provider Nurse Practitioner; Visit Provider Student in an Organized Health Care Education/Training Program | DX: M84.461A Pathological fracture, right tibia, initial encounter for fracture; M25.561 Pain in right knee | CPT/HCPCS: 99213 ==

== ENCOUNTER → 2019-12-11 09:01 | Outpatient (BNVA) | payer MEDICARE, OTHER, SELFPAY | PROVIDERS: PCP Nurse Practitioner; Referring Provider Nurse Practitioner; Visit Provider Student in an Organized Health Care Education/Training Program | DX: M84.461D Pathological fracture, right tibia, subsequent encounter for fracture with routine healing; X58.XXXD Exposure to other specified factors, subsequent encounter; M25.561 Pain in right knee; I10 Essential (primary) hypertension | CPT/HCPCS: 99213 ==

== ENCOUNTER 2020-05-08 04:25 | Outpatient (CLI) | payer MEDICARE, OTHER, SELFPAY ==
[2020-05-08 11:15] LABS: CREATININE 0.87 mg/dL (0.55-1.02); Calcium 10.2 mg/dL (8.5-10.1)
== END 2020-05-08 04:45 ==
PROVIDERS: PCP Nurse Practitioner; Visit Provider Internal Medicine Rheumatology
DX: M81.0 Age-related osteoporosis without current pathological fracture (principal); Z79.899 Other long term (current) drug therapy
CPT/HCPCS: 36415; 82310; 82565

== ENCOUNTER 2020-06-27 10:21 | Outpatient (CLI) | payer MEDICARE, OTHER, SELFPAY ==
--- NOTE | 2020-06-27 09:53 | DI.RAD_ITS ---
EXAM: XR KNEE RT 3V AP,LAT,REBEKA CLINICAL HISTORY: pain. TECHNIQUE: 2D digital imaging was performed. COMPARISON: CR XR HIP RT AP LAT ONLY from 09/18/2019 FINDINGS: BONES: No acute fracture is present. No bony destructive lesion is seen. The bones are osteopenic. JOINTS: The knee is normally aligned. No joint effusion is seen. Mild spurring is seen at the posteri or patella. SOFT TISSUE: Vascular calcifications. IMPRESSION: 1. Mild degenerative changes at the patella. 2. Osteopenia. DATA REPOSITORY: RADIATION DOSE DELIVERED:
== END 2020-06-27 10:22 | disposition home or self-care (01) ==
LOC: DIORS 10:22
PROVIDERS: PCP Nurse Practitioner; Referring Provider Nurse Practitioner; Visit Provider Student in an Organized Health Care Education/Training Program
DX: M17.11 Unilateral primary osteoarthritis, right knee (principal); M85.88 Other specified disorders of bone density and structure, other site; M84.469D Pathological fracture, unspecified tibia and fibula, subsequent encounter for fracture with routine healing; M70.51 Other bursitis of knee, right knee
CPT/HCPCS: 73562; 99213

== ENCOUNTER → 2020-08-07 09:58 | Outpatient (BNVA) | payer MEDICARE, OTHER, SELFPAY | PROVIDERS: PCP Nurse Practitioner; Referring Provider Nurse Practitioner; Visit Provider Physician Assistant | DX: M70.51 Other bursitis of knee, right knee (principal) | CPT/HCPCS: 20610; J1030 ==

== ENCOUNTER 2020-10-30 03:26 | Inpatient (IN) | payer MEDICARE, OTHER, SELFPAY ==
[2020-10-30] VITALS (16 sets, daily range): BP systolic 106–164; BP diastolic 48–85; PULSE 67–99; RESP 13–20; TEMP 36.2–37.1; O2SAT 94–100; BMI 22.1
--- NOTE | 2020-10-30 03:30 | DI.CT_ITS ---
Exam(s) CT RENAL COLIC WO EXAM: CT RENAL COLIC WO CLINICAL HISTORY: RLQ and R flank pain. TECHNIQUE: Imaging Protocol: Axial computed tomography images with coronal and sagittal reformatted images were created and reviewed CONTRAST MATERIAL: Intravenous: none Oral: None COMPARISON: CT CT CHEST/ABD/PEL W from 03/17/2018 FINDINGS: VISUALIZED LUNG BASES: Mild scarring. No pleural effusions. ABDOMEN: There is no ascites. LIVER: There are no obvious focal hepatic lesions evident of this noninfused study. GALLBLADDER/BILIARY: No obvious gallbladder pathology. CBD is not dilated. PANCREAS: No evidence of pancreatic mass nor dilatation of the pancreatic duct. SPLEEN: Spleen is not enlarged. No obvious intrasplenic lesions. ADRENALS: There are no significant adrenal masses. KIDNEYS:No cysts evident. There is a 4 millimeter calculus in left kidney. Either parapelvic cysts o r mild dilatation of the infundibulum I. The ureters not dilated. No significant focal findings in t he opposite-right kidney. No perinephric fluid.. ABDOMINAL AORTA: Abdominal aorta is not enlarged. LYMPH NODES: There is no retroperitoneal nor paraaortic adenopathy. ABDOMINAL WALL: No evidence of significant anterior abdominal wall hernia. GI: In the right iliac fossa the appendix is swollen on elongated prominent adjacent streaking and ap pendicoliths. Consistent with severe appendicitis probable perforation.. The appendix is swollen to diameter of 1.8 cm. PELVIS: LYMPH NODES: No adenopathy evident GI: Acute appendicitis as described above.Sigmoid diverticulosis. No obvious acute diverticulitis. URINARY BLADDER: No calculi nor obvious masses evident REPRODUCTIVE: Uterus atrophic or surgically absent. No ovarian masses. OSSEOUS: No significant osseous lesions. Right hip hardware. IMPRESSION: 1. Findings are consistent with severe acute appendicitis with perforation. There is no formed absce ss at this time. This at high risk for developing abscess. 2. Sigmoid diverticulosis but no evidence of acute diverticulitis. 3. Nonobstructive 4 millimeter calculus in left kidney. RADIATION DOSE DELIVERED: 589.78mGy.cm Total DLP DATA REPOSITORY: All CT scans at this facility are submitted to the National Radiology Data Registry (NRDR) Dose Index Registry (DIR) with the [employer] (ACR). RADIATION OPTIMIZATION: All CT scans at this facility use at least one of these dose optimization te chniques: automated exposure control; mA and/or kV adjustment per patient size (includes targeted exa ms where dose is matched to clinical indication); or iterative reconstruction.
--- NOTE | 2020-10-30 03:44 | W.ED.GENAD ---
Discharge Plan Disposition Patient Disposition: [facility] IN[facility]IENT Condition: Stable Discharge Details Chief Complaint: Abd Prob Clinical Impression: Acute appendicitis Primary Care Provider: Isatu Soni ED Provider: Shane Arriaga Home Meds and New Rx's Prescriptions: No Action cholecalciferol (vitamin D3) 125 mcg (5,000 unit) capsule 125 mcg PO DAILY RF: 0 Prolia 60 mg/mL syringe 60 mg SC [id number] RF: 0 docusate sodium [Colace] 100 mg capsule 100 mg PO DAILY RF: 0 hydrocortisone 2.5 % cream with perineal applicator 1 applic IN TID PRN (Reason: hemorrhoids) Qty: 30 RF: 2 multivitamin [Daily Multi-Vitamin] 1 EACH tablet 1 ea PO DAILY RF: 0 amlodipine 2.5 mg tablet 2.5 mg PO DAILY Qty: 90 RF: 3 acetaminophen 500 mg tablet 1,000 mg PO TID PRN (Reason: fever) Qty: 90 RF: 0 ascorbate calcium (vitamin C) 500 mg Tablet 1,000 mg PO DAILY RF: 0 naproxen sodium [Aleve] 220 mg Tablet 440 mg PO DAILY RF: 0 calcium carbonate-vitamin D3 [Calcium 500 + D] 500 mg(1,250mg) -200 unit Tablet 1 tab PO DAILY RF: 0 Medical Decision Making This is a 72-year-old female states has a history of previous renal colic. She presents with the onset of right flank pain yesterday followed by right lower quadrant pain this evening that has been fairly constant and moderate to severe. Patient reported to the emergency department for evaluation, she arrives with a resting pulse approximately 90, otherwise unremarkable vital signs. She is tender in the right lower quadrant of the abdomen. Differential diagnosis includes renal colic, appendicitis, diverticulitis. Patient had IV access established, fluids initiated, given parenteral analgesia and antiemetic. Labs reveal white blood cell count of 13, hematocrit 43, platelets 143, chemistries note creatinine 1.2. Referred for CT imaging, which reveals a 1.8 cm dilated appendix with surrounding fluid and infiltration. See formal report. A rapid Covid test obtained, case discussed with Dr. Velasquez and patient to be admitted. HPI General Mode of arrival: ambulatory. Date/Time Provider Initiated Documentation: 10/30/20 03:38. Limitations to Documentation: no limitations. Information obtained by: patient. History of Present Illness 80 year old F presents to the emergency department with the chief complaint of Lower quadrant pain, described as moderate and severe, Quality is described as dull and constant, and is localized to the abdomen and right. Patient reports no radiation. Patient started experiencing this hour(s) and it has been constant. No relieving factors improve symptom(s), No exacerbating factors reported . Patient notes other (Nauseated); denies fever/chills. Patient did receive the following treatments prior to arrival, NSAID Related Data Home Medications Medication Instructions Recorded Confirmed multivitamin [Daily Multi-Vitamin] 1 ea PO DAILY 08/28/16 10/30/20 amlodipine 2.5 mg tablet 2.5 mg PO DAILY #90 tab-cap 02/24/18 10/30/20 docusate sodium 100 mg capsule 100 mg PO DAILY 06/29/19 10/30/20 hydrocortisone 2.5 % topical cream 1 applic IN TID PRN #30 gm 07/05/19 10/30/20 with perineal applicator acetaminophen 500 mg tablet 1,000 mg PO TID PRN #90 tab 07/24/19 10/30/20 ascorbate calcium (vitamin C) 1,000 mg PO DAILY 10/12/19 10/30/20 calcium carbonate-vitamin D3 1 tab PO DAILY 10/12/19 10/30/20 [Calcium 500 + D] cholecalciferol (vitamin D3) 125 125 mcg PO DAILY 10/12/19 10/30/20 mcg (5,000 unit) capsule naproxen sodium [Aleve] 440 mg PO DAILY 10/12/19 10/30/20 denosumab 60 mg/mL subcutaneous 60 mg SC [id number] 12/11/19 10/30/20 syringe Previous Rx's Medication Instructions Recorded amlodipine 2.5 mg tablet 2.5 mg PO DAILY #90 tab-cap 02/24/18 hydrocortisone 2.5 % topical cream 1 applic IN TID PRN #30 gm 07/05/19 with perineal applicator acetaminophen 500 mg tablet 1,000 mg PO TID PRN #90 tab 07/24/19 Allergies Allergy/AdvReac Type Severity Reaction Status Date / Time morphine Allergy Severe throat Unverified 10/30/20 03:32 closed up alendronate sodium Allergy Intermediate chest pain Unverified 10/30/20 03:32 [From Fosamax] celecoxib [From Celebrex] AdvReac Severe Diarrhea Unverified 10/30/20 03:32 propranolol HCl AdvReac Intermediate depression Unverified 10/30/20 03:32 [From Inderal LA] tramadol HCl [From Ultram] AdvReac Intermediate Got High Unverified 10/30/20 03:32 General Stated Complaint: Abd Prob SHELLY: 3 Review of Systems Narrative: No vomiting. No fall or injury. No change to medications. Denies recent illness. 6 systems reviewed and otherwise negative [facility] Medical History Abnormal colonoscopy 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 states she had f/u with cardiology but has been since d/c from [facility], and stated she didn't need to follow up with ms unless symptoms came back Chest pain at rest (08/20/16) Thought to be related to adverse reaction to Fosamax (esophagitis?) Pt. denies having any chest pain at rest, last time was 2+ years ago Essential hypertension Hx of fracture of right hip Hyperlipidemia, unspecified 02/2017 labwork: 10-year ASCVD ~25.1% --> pt declines statins Lung nodule RUL noted incidentally 03/17/[address] carried out during workup for rectal polyp --> [place]04[place] [facility] and PET scan showing non-FDG avid lesion most c/w scar tissue --> plan for 3 vs. 6 mo f/u chest CT Pt. states onocology has dc'd her from care, unless new symtoms arise. 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 Essential hypertension Migraines Neoplasm Breast Father , Leukemia at age 50. TB (tuberculosis) Neoplasm Leukemia Brother Essential hypertension Heart disease Social History Smoking/Tobacco Use Status: Former Tobacco Use Quit Date: 04/19/84 Smoking risk assessment performed?: Yes Alcohol Intake: current Alcohol Intake frequency: 0-2 drinks per day Alcohol type: wine Drug use: Rarely Substance use type: marijuana Details: Patient states had brownie about three months. Alcohol: t-3, 5 ounces wine Adopted: No Caregiver/Support person: No Foster care: No Household members: spouse Number of Children: 1 Current gender identity: female What type of physical activity do you participate in: regular exercise Duration: 45-60 minutes/day Frequency: daily Seatbelt use: always Water heater temp set <120 deg: Yes Working smoke detector in home: Yes Fire extinguisher in home: Yes Carbon monox detector in home: Yes Firearms in home: Yes Firearms unloaded and locked: No Do you feel safe at home: Yes Do you feel safe in your relationship?: Yes Additional Social history: Patient reports is very active and takes walks every day. Exam Narrative Exam Narrative: GEN: awake, alert, oriented 3. Pleasant, well groomed, interactive. HEAD: Normocephalic, atraumatic ENT: Mucous membranes moist, oropharynx unremarkable, External ear exam unremarkable EYES: PERRL, EOMI NECK: Full ROM, no IMTIAZ, no menigismus CHEST/RESP: Nontender, clear to auscultation bilateral, no wheeze/rhonchi/rales CARDIOVASCULAR: RRR, no murmur, rub brooks. 2+ Rad pulse bilateral ABDOMEN: Soft, tender in the right lower quadrant without rebound or guarding, no mass. +Bowel sounds EXT: Full ROM, no edema, no rash Neuro: Grossly normal neurologic exam, conversant, interactive. Psych: Speech fluent, thoughts congruent, affect normal Course Vital Signs Vital signs: Vital Signs Temperature 36.4 C L 10/30/20 03:29 Pulse 99 H 10/30/20 03:29 Respiratory Rate 20 10/30/20 03:29 Blood Pressure 137/67 10/30/20 03:29 Pulse Oximetry 98 10/30/20 03:29 Temperature 36.4 C L 10/30/20 03:29 Temperature Source Skin 10/30/20 03:29 Pulse 99 H 10/30/20 03:29 Respiratory Rate 20 10/30/20 03:29 Respiratory Effort Non-Labored 10/30/20 03:33 Blood Pressure 137/67 10/30/20 03:29 Pulse Oximetry 98 10/30/20 03:29 Pain Level 8 10/30/20 03:29
[2020-10-30 03:51] LABS: Abs Immature Grans 0.06 10^3/uL (0.0-0.06); Absolute Basophil Count 0.04 10^3/uL (0.0-0.2); Absolute Eosinophil Count 0.01 10^3/uL (0.0-0.7); Absolute Lymphocyte Count 1.07 10^3/uL (1.2-3.4); Absolute Monocyte Count 0.78 10^3/uL (0.1-0.8); Absolute Neutrophil Count 11.47 10^3/uL (1.2-6.7); Basophils % 0.3; Eosinophils % 0.1; HCT 43.5 % (36.0-46.0); HGB 14.3 g/dL (11.2-15.7); Immature Grans % 0.4; MCH 30.4 pg (27.0-33.0); MCHC 32.9 % (32.0-36.0); MCV 92.4 fL (80-95); Monocytes % 5.8; Neutrophils % 85.4; Nucleated RBC 0 %; RBC 4.71 10^6/uL (3.93-5.22); RDW 14.6 % (11.7-14.6); RDW-SD 49.1 fL; WBC 13.43 10^3/uL (4.4-10.8)
[2020-10-30] MEDS: fentaNYL 100 MCG/2 ML VIAL 25 MCG IVP ×2 (03:54→04:09)
[2020-10-30] MEDS: Ondansetron 4 MG/2 ML VIAL IVP ×2 (03:54→08:24)
[2020-10-30 03:55] LABS: Platelet Count 143 10^3/uL (130-400)
[2020-10-30 04:02] LABS: ALT 18 U/L (14-59); AST 11 U/L (15-37); Albumin 3.8 g/dL (3.4-5.0); Alkaline Phosphatase 99 U/L (46-116); BUN 16 mg/dL (7-18); Bilirubin, Total 0.9 mg/dL (0.2-1.0); CREATININE 1.2 mg/dL (0.55-1.02); Calcium 9.2 mg/dL (8.5-10.1); Chloride 104 mmol/L (98-107); Estimated GFR 43.45 (mL/min/1.73m2); Glucose 148 mg/dL (74-106); Sodium 142 mmol/L (136-145); Total Protein 7.5 g/dL (6.4-8.2)
[2020-10-30] MEDS: Normal Saline 1,000 ML 125 ML IV (04:09)
[2020-10-30] MEDS: fentaNYL 100 MCG/2 ML VIAL 50 MCG IVP ×4 (06:02→16:00)
--- NOTE | 2020-10-30 06:09 | DI.VRAD_ITS ---
Addendum created by Huma Lane MD on 10/30/2020 6:10:13 AM EDT: THIS REPORT CONTAINS FINDINGS THAT MAY BE CRITICAL TO PATIENT CARE. The findings were verbally communicated by me to ANICETO WADSWORTH via telephone conference at 6:10 AM EDT on 10/30/2020. The findings were acknowledged and understood. Initial report created on 10/30/2020 6:08:48 AM EDT: PROCEDURE INFORMATION: Exam: CT Abdomen And Pelvis Without Contrast Exam date and time: 10/30/2020 3:45 AM Age: 80 years old Clinical indication: Abdominal pain and other: R flank pain; Localized; Right lower quadrant (rlq); Prior surgery; Surgery date: 6+ months; Surgery type: Hip surgery; Patient HX: Rlq and R flank pain since yesterday. Increasing today TECHNIQUE: Imaging protocol: Computed tomography of the abdomen and pelvis without contrast. Radiation optimization: All CT scans at this facility use at least one of these dose optimization techniques: automated exposure control; mA and/or kV adjustment per patient size (includes targeted exams where dose is matched to clinical indication); or iterative reconstruction. COMPARISON: CT CHEST/ABD/PEL W 03/17/2018 10:34 AM FINDINGS: Lungs: Scarring in the lung bases. Status post right femoral rogelio fixation and hip pinning bibasilar atelectasis/scar. Liver: The liver is diffusely low in attenuation, compatible with fatty infiltration. Gallbladder and bile ducts: Unremarkable. No calcified stones. No ductal dilation. Pancreas: Unremarkable. No ductal dilation. Spleen: Unremarkable. No splenomegaly. Adrenal glands: Normal. No mass. Kidneys and ureters: Bilateral parapelvic cysts. No obstructive uropathy. Stomach and bowel: Moderate diverticulosis is present in the sigmoid colon. No evidence of diverticulitis. Appendix: The appendix is markedly dilated and contains large appendicoliths surrounding moderate amount of fluid and mesenteric infiltration present suggests perforation. The appendix is markedly elongated. Is thickened to 1.8 cm. Intraperitoneal space: Unremarkable. No free air. No significant fluid collection. Vasculature: Unremarkable. No abdominal aortic aneurysm. Lymph nodes: Unremarkable. No enlarged lymph nodes. Urinary bladder: Unremarkable as visualized. Reproductive: Unremarkable as visualized. Bones/joints: Moderate diffuse degenerative changes are present. Soft tissues: Unremarkable. IMPRESSION: Acute severe appendicitis with suspected perforation. Dictated and Authenticated by: Huma Lane MD. Ordering:EFREN Lynn MD
[2020-10-30 06:15] LABS: Source Nasal/Nares
[2020-10-30] MEDS: PIPERACILLIN/TAZO 3.375 GM in Normal Saline 50 ML IVPB (06:28)
[2020-10-30 07:06] LABS: COVID-19 PCR Negative (Negative)
--- NOTE | 2020-10-30 07:51 | HPE_ITS ---
Date of service: 10/30/20 Time of Service: 07:52 Assessment and Plan Assessment and plan (1) Acute appendicitis: Status: Acute Assessment and plan: Her appendix may be ruptured from the looks of the CT. There is a chance that we cannot get the appendix out and we will have to do a washout and place a drain and do a remote appendectomy. Risks of the procedure include but aren't limited to bleeding, infection, pneumonia, blood clots, damage to bowel, bladder, blood vessels. Risk of anesthesia. Possible open procedure, and possible inability to remove the appendix and will need to be removed at second operation. She will remain NPO Zofran ordered for nausea Zosyn pain control P// Laparoscopic Appendectomy. (2) Unspecified vertiginous syndromes and labyrinthine disorders: Status: Acute (3) Anal fissure: Status: Acute (4) Osteoporosis, unspecified: Status: Chronic History of Present Illness 80 y/o female with a history of HTN and osteoperosis presented to the ER with complaints of RLQ pain and nausea. She reports that she last ate 10/[address] scan last night demonstrated a dilated appendix with surrounding fluid and infiltration indicative of appendicitis. Denies chest pain, palpitations, dyspnea or dyspnea with exertion. Denies personal or family history of adverse reactions to anesthesia. Denies any history of [place], stroke, seizures, bleeding or clotting disorders. Patient reports having implanted metal in her Right hip. [facility] Medical History Abnormal colonoscopy 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 states she had f/u with cardiology but has been since d/c from [facility], and stated she didn't need to follow up with [place] unless symptoms came back Chest pain at rest (08/20/16) Thought to be related to adverse reaction to Fosamax (esophagitis?) Pt. denies having any chest pain at rest, last time was 2+ years ago Essential hypertension Hx of fracture of right hip Hyperlipidemia, unspecified 02/2017 labwork: 10-year ASCVD ~25.1% --> pt declines statins Lung nodule RUL noted incidentally 03/17/[address] carried out during workup for rectal polyp --> 04/04/19 [facility] Thoracic Surgery consult and PET scan showing non-FDG avid lesion most c/w scar tissue --> plan for 3 vs. 6 mo f/u chest CT Pt. states onocology has dc'd her from care, unless new symtoms arise. 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 Essential hypertension Migraines Neoplasm Breast Father , Leukemia at age 50. TB (tuberculosis) Neoplasm Leukemia Brother Essential hypertension Heart disease Social History Smoking/Tobacco Use Status: Former Tobacco Use Quit Date: 04/19/84 Smoking risk assessment performed?: Yes Alcohol Intake: current Alcohol Intake frequency: 0-2 drinks per day Alcohol type: wine Drug use: Rarely Substance use type: marijuana Details: Patient states had brownie about three months. Alcohol: t-3, 5 ounces wine Adopted: No Caregiver/Support person: No Foster care: No Household members: spouse Number of Children: 1 Current gender identity: female What type of physical activity do you participate in: regular exercise Duration: 45-60 minutes/day Frequency: daily Seatbelt use: always Water heater temp set <120 deg: Yes Working smoke detector in home: Yes Fire extinguisher in home: Yes Carbon monox detector in home: Yes Firearms in home: Yes Firearms unloaded and locked: No Do you feel safe at home: Yes Do you feel safe in your relationship?: Yes Additional Social history: Patient reports is very active and takes walks every day. Meds Allergies and Home Medications Allergies Allergy/AdvReac Type Severity Reaction Status Date / Time morphine Allergy Severe throat Unverified 10/30/20 03:32 closed up alendronate sodium Allergy Intermediate chest pain Unverified 10/30/20 03:32 [From Fosamax] celecoxib [From Celebrex] AdvReac Severe Diarrhea Unverified 10/30/20 03:32 propranolol HCl AdvReac Intermediate depression Unverified 10/30/20 03:32 [From Inderal LA] tramadol HCl [From Ultram] AdvReac Intermediate Got High Unverified 10/30/20 03:32 Home Medications Medication Instructions Recorded Confirmed Type multivitamin [Daily Multi-Vitamin] 1 ea PO DAILY 08/28/16 10/30/20 History amlodipine 2.5 mg tablet 2.5 mg PO DAILY #90 tab-cap 02/24/18 10/30/20 Rx docusate sodium 100 mg capsule 100 mg PO DAILY 06/29/19 10/30/20 History hydrocortisone 2.5 % topical cream 1 applic IL TID PRN #30 gm 07/05/19 10/30/20 Rx with perineal applicator acetaminophen 500 mg tablet 1,000 mg PO TID PRN #90 tab 07/24/19 10/30/20 Rx ascorbate calcium (vitamin C) 1,000 mg PO DAILY 10/12/19 10/30/20 History calcium carbonate-vitamin D3 1 tab PO DAILY 10/12/19 10/30/20 History [Calcium 500 + D] cholecalciferol (vitamin D3) 125 125 mcg PO DAILY 10/12/19 10/30/20 History mcg (5,000 unit) capsule naproxen sodium [Aleve] 440 mg PO DAILY 10/12/19 10/30/20 History denosumab 60 mg/mL subcutaneous 60 mg SC [id number] 12/11/19 10/30/20 History syringe Exam Const General: cooperative and comfortable Orientation: alert and oriented x3 Resp Effort & Inspection: normal respiratory effort, able to speak in complete sentences, no audible wheezes and no cough Auscultation: clear to auscultation bilaterally Cardio Rate: regular rate Rhythm: regular rhythm Heart Sounds: S1 normal, S2 normal and no murmurs GI Inspection: normal to inspection and non-distended Palpation: soft, guarding in the RLQ and tender in the RLQ Auscultation: normal bowel sounds Results Labs Result diagrams: 10/30/20 03:30 10/30/20 03:30 Labs: Laboratory Results - last 24 hr 10/30/20 10/30/20 10/30/20 03:30 03:30 06:10 WBC 13.43 H RBC 4.71 Hgb 14.3 Hct 43.5 MCV 92.4 MCH 30.4 MCHC 32.9 RDW 14.6 Plt Count 143 MPV Immature Gran % 0.4 Neutrophils % 85.4 Lymphocytes % 8.0 Monocytes % 5.8 Eosinophils % 0.1 Basophils % 0.3 Nucleated RBC % 0 Absolute Neutrophils 11.47 H Absolute Lymphocytes 1.07 L Absolute Monocytes 0.78 Absolute Eosinophils 0.01 Absolute Basophils 0.04 Sodium 142 Potassium 4.0 Chloride 104 Carbon Dioxide 27.0 Anion Gap 11.0 BUN 16 Creatinine 1.2 H Estimated GFR/1.73 m2 43.45 Glucose 148 H Calcium 9.2 Total Bilirubin 0.9 AST 11 L ALT 18 Alkaline Phosphatase 99 Total Protein 7.5 Albumin 3.8 COVID-19 Source Nasal/Nares SARS-CoV-2 (PCR) Negative Last Vital Signs Temp 36.5 C 10/30/20 07:10 Pulse 67 10/30/20 07:10 Resp 20 10/30/20 07:10 BP 128/68 10/30/20 07:10 Pulse Ox 96 10/30/20 07:10
[2020-10-30] MEDS: Normal Saline Flush 10 ML SYR IVP ×2 (08:20→15:58)
--- NOTE | 2020-10-30 11:19 | W.ANESPRE ---
General Info Date of Service Date Performed: 10/30/20 Height: 5 ft 1 in Weight: 53 kg Body Mass Index (BMI): 22.1 Surgical Procedure: Operation Date: 10/30/20 10:25 Proposed Procedures Side Surgeon p Appendectomy Laparoscopic Maryam Velasquez, Meds Allergies and Home Medications Allergies Allergy/AdvReac Type Severity Reaction Status Date / Time morphine Allergy Severe throat Unverified 10/30/20 03:32 closed up alendronate sodium Allergy Intermediate chest pain Unverified 10/30/20 03:32 [From Fosamax] celecoxib [From Celebrex] AdvReac Severe Diarrhea Unverified 10/30/20 03:32 propranolol HCl AdvReac Intermediate depression Unverified 10/30/20 03:32 [From Inderal LA] tramadol HCl [From Ultram] AdvReac Intermediate Got High Unverified 10/30/20 03:32 Home Medication Medication Instructions Recorded multivitamin [Daily Multi-Vitamin] 1 ea PO DAILY 08/28/16 amlodipine 2.5 mg tablet 2.5 mg PO DAILY #90 tab-cap 02/24/18 docusate sodium 100 mg capsule 100 mg PO DAILY 06/29/19 hydrocortisone 2.5 % topical cream 1 applic IN TID PRN #30 gm 07/05/19 with perineal applicator acetaminophen 500 mg tablet 1,000 mg PO TID PRN #90 tab 07/24/19 ascorbate calcium (vitamin C) 1,000 mg PO DAILY 10/12/19 calcium carbonate-vitamin D3 1 tab PO DAILY 10/12/19 [Calcium 500 + D] cholecalciferol (vitamin D3) 125 125 mcg PO DAILY 10/12/19 mcg (5,000 unit) capsule naproxen sodium [Aleve] 440 mg PO DAILY 10/12/19 denosumab 60 mg/mL subcutaneous 60 mg SC [id number] 12/11/19 syringe Current Visit Medications: Current Medications Generic Name Dose Route Start Last Admin Trade Name Freq PRN Reason Stop Dose Admin Fentanyl 50 mcg 10/30/20 08:15 10/30/20 10:21 Fentanyl 100 Mcg/2 Ml Vial IVP 50 mcg Q1H PRN PRN Administration Sodium Chloride 1,000 mls @ 125 mls/hr 10/30/20 03:45 10/30/20 04:09 Saline 1000ml Bag IV 125 mls/hr INFUSION SAM Administration Sodium Chloride 1,000 mls @ 150 mls/hr 10/30/20 06:15 Saline 1000ml Bag IV INFUSION SAM Piperacillin/Tazobactam/Dextrose 3.375 gm in 50 mls @ 100 mls/hr 10/30/20 14:00 Zosyn IVPB Q8H [facility] Protocol IV Miscellaneous Supplies 1 each 10/30/20 06:15 Iv Access IV DIRECTED [facility] Ondansetron HCl 4 mg 10/30/20 08:15 10/30/20 08:24 Ondansetron 4 Mg/2 Ml Vial IVP 4 mg Q4H PRN PRN Administration Sodium Chloride 0 ml 10/30/20 03:43 10/30/20 08:20 Normal Saline Flush 10 Ml Syr IVP 10 ml PRN PRN Administration PFSH Active Problems Active Problems: Problem Status Onset Code Acute appendicitis K35.80 Unspecified vertiginous syndromes and labyrinthine disorders H81.90 Pes anserine bursitis M70.50 Rectal pain K62.89 Hematochezia K92.1 Anal fissure K60.2 Closed intertrochanteric fracture of right hip S72.141A Fall due to ice or snow W00.9XXA DVT prophylaxis Z29.9 Discharge planning issues Z02.9 Lung nodule R91.1 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 states she had f/u with cardiology but has been since d/c from [facility], and stated she didn't need to follow up with [place] unless symptoms came back Chest pain at rest (08/20/16) Thought to be related to adverse reaction to Fosamax (esophagitis?) Pt. denies having any chest pain at rest, last time was 2+ years ago Essential hypertension Hx of fracture of right hip Hyperlipidemia, unspecified 02/2017 labwork: 10-year ASCVD ~25.1% --> pt declines statins Lung nodule RUL noted incidentally 03/17/[address] carried out during workup for rectal polyp --> 04/04/19 [facility] Thoracic Surgery consult and PET scan showing non-FDG avid lesion most c/w scar tissue --> plan for 3 vs. 6 mo f/u chest CT Pt. states onocology has dc'd her from care, unless new symtoms arise. 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) [facility] Dermatology Tubulovillous adenoma polyp of rectum 03/15/2018 colonoscopy Unspecified vertiginous syndromes and labyrinthine disorders (08/20/16) Unspecified vertiginous syndromes and labyrinthine disorders Surgical History Surgical History Bladder Suspension With correction of rectal prolapse at the same time H/O rectal polypectomy (04/15/18) History of colonoscopy (~09/2019) Ligation of fallopian tube (~1972) Vaginal hysterectomy Tobacco Smoking/Tobacco Use Status: Former Tobacco Use Alcohol Alcohol Intake: current Alcohol intake frequency: 0-2 drinks per day Alcohol type: wine Substance Use Substance use: Rarely Substance use type: marijuana Details: Patient states had brownie about three months. Alcohol: t-3, 5 ounces wine Vital Signs and Lab Results Vital Signs Most Recent Vital Signs in EMR: Most Recent Vital Signs Temp Pulse Resp BP Pulse Ox 36.5 C 67 20 128/68 96 10/30/20 07:10 10/30/20 07:10 10/30/20 07:10 10/30/20 07:10 10/30/20 07:10 Lab Results Result Diagrams: 10/30/20 03:30 10/30/20 03:30 Blood Type / Crossmatch: No Data to Display Complete Blood Count: White Blood Count 13.43 10^3/uL (4.4-10.8) H 10/30/20 03:30 10/30/20 Red Blood Count 4.71 10^6/uL (3.93-5.22) 10/30/20 03:30 10/30/20 Hemoglobin 14.3 g/dL (11.2-15.7) 10/30/20 03:30 10/30/20 Hematocrit 43.5 % (36.0-46.0) 10/30/20 03:30 10/30/20 Platelet Count 143 10^3/uL (130-400) 10/30/20 03:30 10/30/20 Complete Metabolic Panel: Sodium Level 142 mmol/L (136-145) 10/30/20 03:30 10/30/20 Potassium Level 4.0 mmol/L (3.5-5.1) 10/30/20 03:30 10/30/20 Chloride Level 104 mmol/L (98-107) 10/30/20 03:30 10/30/20 Carbon Dioxide Level 27.0 mmol/L (21.0-32.0) 10/30/20 03:30 10/30/20 Blood Urea Nitrogen 16 mg/dL (7-18) 10/30/20 03:30 10/30/20 Creatinine 1.2 mg/dL (0.55-1.02) H 10/30/20 03:30 10/30/20 Estimated GFR/1.73 m2 43.45 (mL/min/1.73m2) 10/30/20 03:30 10/30/20 Calcium Level 9.2 mg/dL (8.5-10.1) 10/30/20 03:30 10/30/20 Albumin 3.8 g/dL (3.4-5.0) 10/30/20 03:30 10/30/20 Glucose Level 148 mg/dL (74-106) H 10/30/20 03:30 10/30/20 Liver Function Panel: Alanine Aminotransferase (ALT/SGPT) 18 U/L (14-59) 10/30/20 03:30 10/30/20 Aspartate Amino Transf (AST/SGOT) 11 U/L (15-37) L 10/30/20 03:30 10/30/20 Coagulation Panel: No Data to Display Cardiac Panel: No Data to Display Arterial Blood Gas: No Data to Display Venous Blood Gas: No Data to Display Pancreas Panel: No Data to Display Thyroid Panel: No Data to Display Infectious Disease: Coronavirus (COVID-19)(PCR) Negative (Negative) 10/30/20 06:10 10/30/20 Coronavirus 2019 Source Nasal/Nares 10/30/20 06:10 10/30/20 Blood Cultures: No Data to Display Toxicology Panel: No Data to Display Imaging and Studies Imaging and Studies Stress Test Summary: Impressions: - Normal stress test after maximal exercise. - Low risk of cardiac events. Summary: 1. Myocardial perfusion imaging: No myocardial perfusion defects noted. 2. The calculated left ventricular ejection fraction after stress: 61%. LV global systolic function is normal. No left ventricular regional motion abnormality. 3. Stress ECG conclusions: The stress ECG is negative. 4. Stress: The target heart rate was achieved. There is a normal resting blood pressure with an appropriate response to stress. The patient experienced no chest pain during stress. Exercise capacity is good. 06/29/07 Echocardiogram Summary: Summary: 1. Left ventricle: The cavity size was normal. Wall thickness was normal. Systolic function was at the lower limits of normal. The estimated ejection fraction was 50-55%. Wall motion was normal; there were no regional wall motion abnormalities. 2. Right ventricle: The cavity size was normal. Systolic function was normal. 3. Inferior vena cava: The vessel was normal in size. The respirophasic diameter changes were in the normal range (greater than or equal to 50%), consistent with normal central venous pressure. 4. Pericardium, extracardiac: There was no pericardial effusion. 10/15/17 Anesthesia Assessment and Plan Anesthesia History Personal History: No History of Anesthesia Complications Family History: No Family History of Anesthesia Complications Exercise Tolerance Exercise Tolerance: Metabolic Equivalents>4 Pertinent Negatives Pertinent Negatives: No Symptoms of GERD, No Major Cardiovascular Symptoms or Complaints (Hx pericarditis, resolved), No Major Pulmonary Symptoms or Complaints and No History of CVA/TIA Cardiac & Pulmonary Exam Cardiac Exam: Normal S1/S2 Heart Sounds Pulmonary Exam: Clear Bilateral Breath Sounds Airway Exam Known Difficult Airway: No Mallampati Class: 1 Mouth Opening: Normal (> 3cm) Thyromental Distance: Greater than 3 cm Neck Range of Motion: Full ROM Neck Circumference: Normal Teeth Condition: Normal Dentition ASA Classification ASA Score: ASA 2 Emergency Case?: No NPO Status NPO Status: NPO Clears >2 hours, Solids >8 hours Anesthesia Plan Resuscitation Status: Full Code Anesthesia Technique: General Anesthesia Airway Planned: Endotracheal Tube Monitors Used: Standard Monitors
[2020-10-30] MEDS: Lactated Ringers 1,000 ML 30 ML IV (11:50)
--- NOTE | 2020-10-30 13:00 | APP_PTH ---
PATIENT: Kelsea Garcia LOC: U#:[id number] AGE/SX: 80/F ROOM: 208 RE10/30/[address]: Maryam Velasquez : 1940 BED: A DIS: 11/08/2020 SPEC #: [id number] RECD: 10/30/20 18:03 STATUS: RIZWAN REQ #: [id number] TIFFANY: 10/30/20 13:[address]: Maryam Velasquez DEPT: Surgical Specimen RECD BY: Moriah Black ENTERED: 10/30/20 18:03 SP TYPE: Appendix OTHR DR: Isatu Soni Tissues: 1 - APPENDIX NOT INCIDENTAL Procedures: GROSS AND MICRO LEVEL 3 Comments: [id number]
[2020-10-30] MEDS: Bupivacaine 0.25% Pres-Free 30 ML VIAL (13:15)
--- NOTE | 2020-10-30 13:43 | INITIAL_ITS ---
- If Service Date Differs Date of service: 10/30/20 Time of Service: 13:43 Care Management Initial Assess REASON FOR HOSPITALIZATION:: Acute appendicitis PAST MEDICAL HISTORY/PAST SURGICAL HISTORY:: Abnormal colonoscopy. Acute idiopathic pericarditis (07/23/17). Acute pericarditis. Pt. states she had f/u with cardiology but has been since d/c from care, and stated she didn't need to follow up with [place] unless symptoms came back. Chest pain at rest (08/20/16). Thought to be related to adverse reaction to Fosamax (esophagitis?). Pt. denies having any chest pain at rest, last time was 2+ years ago. Essential hypertension. Hx of fracture of right hip. Hyperlipidemia, unspecified. 02/2017 labwork: 10-year ASCVD ~25.1% --> pt declines statins. Lung nodule. RUL noted incidentally 03/17/[address] carried out during workup for rectal polyp --> 04/04/19 [facility] Thoracic Surgery consult and PET scan showing non-FDG avid lesion most c/w scar tissue --> plan for 3 vs. 6 mo f/u chest CT. Pt. states onocology has dc'd her from care, unless new symtoms arise. Metatarsalgia of both feet (07/08/17). [facility] Podiatry, R>L. Osteoporosis, unspecified. S/p failed tx with bisphosphonates (adverse reactions). 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 [facility] Dermatology. Tubulovillous adenoma polyp of rectum. 03/15/2018 colonoscopy. Unspecified vertiginous syndromes and labyrinthine disorders (08/20/16). Unspecified vertiginous syndromes and labyrinthine disorders. Surgical History . Bladder Suspension. With correction of rectal prolapse at the same time. H/O rectal polypectomy (04/15/18). History of colonoscopy (~09/2019). Ligation of fallopian tube (~1972). Vaginal hysterectomy PREVIOUS FUNCTIONAL STATUS/SOCIAL/FAMILY SUPPORTS:: Kelsea resides in [place] with , Shane, she is a retired RN and remains independent and active at baseline, enjoying winter sports and continues to drive. Her daughter was killed by her in 2018, her granddaughter Karol resides in [place]. CURRENT FUNCTIONAL STATUS:: Kelsea was preparing for surgery, and on the stretcher when CM observed her, CM continues to follow. ADVANCE DIRECTIVES:: On file: Shane as agent, Corina Neil and Karol Neil as alternates. Has patient been provided with info about the portal/API?: Yes Did the patient sign up for the portal?: Yes (Previously ) CODE STATUS:: Full Code INSURANCE COVERAGE / FINANCIAL ISSUES:: Medicare, [employer], [facility] PRIMARY CARE PHYSICIAN:: Isatu Soni POTENTIAL DISCHARGE NEEDS:: Surgical intervention, follow up appointments. PATIENT/FAMILY EDUCATION NEEDS:: Review discharge instructions, discuss Ask Me Three. ANTICIPATED BARRIERS TO DISCHARGE:: None identified. TRANSPORTATION:: Via private vehicle with family. PLAN:: Kelsea will be brought to the OR for surgical intervention for acute appendicitis and be closely monitored and treated post operatively. CM continues to follow.
[2020-10-30] MEDS: Normal Saline 1,000 ML 150 ML IV (15:59)
[2020-10-30 18:23] LABS: Bilirubin Negative (Negative); Blood Small (Negative); Clarity Sl Cloudy (Clear); Glucose Negative (Negative); Ketones Negative (Negative); Leukocyte Esterase Negative (Negative); Nitrite Negative (Negative); Specific Gravity >= 1.030 (1.005-1.025); Urobilinogen 0.2 EU/dL (Up TO 0.2)
[2020-10-30 18:33] LABS: Bacteria Rare HPF (Negative); C & S Indicated? No; Crystals Many Amorphous HPF (Negative); Epithelial Cells Negative HPF (Negative); Mucus Negative (Negative); RBC 20-50 HPF (0-2); WBC 0-2 HPF (0-5)
--- NOTE | 2020-10-30 22:14 | ROE_ITS ---
Date of service: 10/30/20 Time of Service: 12:30 Operative Note Operative Note DATE OF PROCEDURE: 10/30/20 PRE-OP DIAGNOSIS: acute appendicitis POST-OP DIAGNOSIS: other (ruptured ) PROCEDURE: attempted laprascopic/converted to open appendectomy SURGEON: Maryam Velasquez FLOTATION OPERATOR: Sherry Qiu ANESTHESIA TYPE: Local By Surgeon and General LMA/ETT Refer to Anesthesia Record ESTIMATED BLOOD LOSS: 50 PATHOLOGY: other Patient was transported to: PACU Patient's condition: stable Procedure Description: INDICATIONS: The patient has signs and symptoms compatible with acute appendicitis and is brought to the OR for laparoscopic appendectomy, possible open procedure. Informed consent is obtained for the procedural (explained in simple layman's te debra that the pt and/or family could understand) explaining risks vs benefits and alternatives to the procedure and consequences if we do not do the procedure. Risks include but are not limited to:bleeding,infections, pneumonia, blood clots/DVT/PE, anesthesia(aspiration, damage to teeth/airway/ND/CVA//prolonged mechanical ventilation/PTX/IV infections), damage to bowel, bladder,blood vessels, ureters. Damage to solid organs requiring removal. Leakage from anastomosis requiring colostomy. Wound infections requirng further surgery. Scarring and disfigurement. Subsequent bowel obstructions from scar tissue. Possible open procedure if minimaly invsive procedure is being attempted. Abscess and stump appendicitis as well as others. DESCRIPTION OF PROCEDURE: The patient was brought to the operating room suite and placed in supine position. Anesthesia was administered per the Department of Anesthesia. A Whittaker catheter and OG tube are placed. The patient was prepped and draped in the usual sterile fashion using ChloraPrep scrub solution. Pause for the cause was done. 30 mL of 1% buffered was used for local anesthetization. A stab incision was made in the umbilicus and the Veress was inserted. Drop test was positive and insufflation was begun. When 15 mm of pressure was noted on the monitor, the Veress was removed, a #5 port inserted. Camera inserted through the port shows no damage to underlying structures. A second 5 mm port is then placed in the left lateral position and a third 5 mm port was placed in the suprapubic position. The abdomen is then explored. The cecum is intimately adhered up to the lateral sidewall. This is gently peeled down. There is purulent drainage over top of the liver around the area of the cecum and a significant quantity in the pelvis. There is a proteinaceous purulent membrane on the small bowel. The cecum is peeled off the lateral sidewall the appendix is in the posterior position. It is adhered to the cecum and lateral sidewall as well once these structures are , and the appendix is elevated, there is noted to be gross free drainage of stool. The appendix is gangrenous and obviously ruptured. There because of inflammatory changes and inflammatory adhesions I am not able to see the base of the appendix adequately. Nor does it appear that the base of the appendix will hold a staple line. At this point is decided to convert the procedure to open. All lap and instruments are passed and we prepared to proceed to open appendectomy. A local anesthetic was infiltrated into the right lower quadrant and a small incision was made. Dissection was carried down to the fascia. The external oblique was sharply divided. The muscles were retracted apart. The peritoneum was then incised. Peritoneal fluid was obtained, and this was sent for culture. The cecum was carefully brought out of the incision using a moistened Ray-Kina. the appendix was gangrenous and auto-amputated rom the cecum. the remaining stump is tied off w/ a 2-0 silk and overnswen w/ 2-0 silk. The mesentery is excisioned w/ electrocautery. The stump of the appendiceal artery is oversewn with 2-0 silk. The suture sites are interrogated. There is no bleeding or enteric leakage. Hemostasis was also assured at the mesoappendix. The cecum was then reduced back into the abdominal cavity and irrigation was then performed. Small bowel is run in the mesentery and the purulent membrane cleaned off. There are no enterotomies. The abdomen is then copiously irrigated with 3 L of saline care to take an break any pockets out of of the mesentery, over top of the liver, done in the pelvis. A 15 mm drain is brought out through the suprapubic port site in place in the right gutter. This is sewn in with 0 Prolene Interceed is placed in the right gutter and under the incision. It is not near the suture lines. The wound was then closed in layers. The peritoneum was closed with a running 2- 0 Vicryl suture. The rest of the layers were closed with interrupted 0 Vicryl sutures. The skin incision will be left open because of the gross contamination. White foam was placed over top of the fascia. A black foam was placed over top of this and wound VAC will be placed. Sterile dressings were applied. The patient tolerated the procedure well and was transferred to the recovery room in stable condition. The specimen was sent for routine evaluation. Her was apprised of her status
--- NOTE | 2020-10-30 22:25 | PGE_ITS ---
Date of Service Date of service: 10/30/20 Time of Service: 18:00 Assessment and Plan Assessment and plan (1) Acute appendicitis: Status: Acute (2) Unspecified vertiginous syndromes and labyrinthine disorders: Status: Acute (3) Ruptured suppurative appendicitis: Status: Acute Assessment and plan: The patient is doing well post-op. Their pain is well controlled. They are having no nausea or vomiting. The pt is not having any chest pain or SOB, productive cough; no calf pain or swelling. The pt is making good urine. The pt pain is adequately controlled. The case was discussed with nursing and patient?s progress reviewed. All of the pt's home medications were addressed and adjusted accordingly for their oral intact status. HEENT: no jaundice. no eye pain/drainage/redness/swelling. Mild sore throat Cardio- NSR no chest pain, BP stable. Pulm: no sob or productive cough. no hemoptysis Incision- clean/dry. Dressing intact no excessive bleeding or drainage I discussed with the patient and/or there family about the findings in surgery and the pt's progress. We reviewed expectations for progress in the hospital; what the pt could expect for recovery time and length of stay. We discussed the importance of walking and pulmonary toilet to avoid blood clots and pneumonia. Continue current plans for pulmonary toilet, GI and DVT prophylaxis. We shall continue the current plan for pain management as it is at an appropriate level, and working well for the pt. Appropriate measures will be taken for constipation prevention, and this was also reviewed with the pt. The wound care plan was reviewed with nursing as well. see orders -NGT: anticipating pt may have prolonged ileus. If she is having minimal output in am and good BS- than d/c -Wound VAC. will need paper work done for home wound vac. Will need HH RN for VAC change and CAROL drain. -SCD/lovenox. encourage ambulation -jonathan Jin#1 / days -Pepcid. -inc spirom -ortega until pt is able to ambulate to BR -pain control: Ofirm & IV fentyl & ice (4) Tubulovillous adenoma polyp of rectum: Status: Acute (5) Hyperlipidemia, unspecified: Status: Chronic (6) Essential hypertension: Status: Chronic Objective Last Vital Signs Temp 37.0 C 10/30/20 18:54 Pulse 82 07/14/21 18:54 Resp 20 10/30/20 18:54 BP 124/72 10/30/20 18:54 Pulse Ox 94 10/30/20 18:54 Laboratory Results - last 24 hr 10/30/20 10/30/20 10/30/20 03:30 03:30 06:10 WBC 13.43 H RBC 4.71 Hgb 14.3 Hct 43.5 MCV 92.4 MCH 30.4 MCHC 32.9 RDW 14.6 Plt Count 143 MPV Immature Gran % 0.4 Neutrophils % 85.4 Lymphocytes % 8.0 Monocytes % 5.8 Eosinophils % 0.1 Basophils % 0.3 Nucleated RBC % 0 Absolute Neutrophils 11.47 H Absolute Lymphocytes 1.07 L Absolute Monocytes 0.78 Absolute Eosinophils 0.01 Absolute Basophils 0.04 Sodium 142 Potassium 4.0 Chloride 104 Carbon Dioxide 27.0 Anion Gap 11.0 BUN 16 Creatinine 1.2 H Estimated GFR/1.73 m2 43.45 Glucose 148 H Calcium 9.2 Total Bilirubin 0.9 AST 11 L ALT 18 Alkaline Phosphatase 99 Total Protein 7.5 Albumin 3.8 Urine Color Urine Clarity Urine pH Ur Specific [place] Urine Protein Urine Ketones Urine Blood Urine Nitrite Urine Bilirubin Urine Urobilinogen Ur Leukocyte Esterase Urine RBC Urine WBC Ur Epithelial Cells Urine Crystals Urine Bacteria Urine Mucus Urine Other Ur Culture Indicated? Urine Glucose COVID-19 Source Nasal/Nares SARS-CoV-2 (PCR) Negative 10/30/20 17:45 WBC RBC Hgb Hct MCV MCH MCHC RDW Plt Count MPV Immature Gran % Neutrophils % Lymphocytes % Monocytes % Eosinophils % Basophils % Nucleated RBC % Absolute Neutrophils Absolute Lymphocytes Absolute Monocytes Absolute Eosinophils Absolute Basophils Sodium Potassium Chloride Carbon Dioxide Anion Gap BUN Creatinine Estimated GFR/1.73 m2 Glucose Calcium Total Bilirubin AST ALT Alkaline Phosphatase Total Protein Albumin Urine Color Yellow Urine Clarity Sl Cloudy Urine pH 6.0 Ur Specific [place] >= 1.030 H Urine Protein 30 H Urine Ketones Negative Urine Blood Small H Urine Nitrite Negative Urine Bilirubin Negative Urine Urobilinogen 0.2 Ur Leukocyte Esterase Negative Urine RBC 20-50 H Urine WBC 0-2 Ur Epithelial Cells Negative Urine Crystals Many Amorphous Urine Bacteria Rare Urine Mucus Negative Urine Other Many Transitional Ur Culture Indicated? No Urine Glucose Negative COVID-19 Source SARS-CoV-2 (PCR)
[2020-10-30] MEDS: ACETAMINOPHEN 1,000 MG/100 ML BTL 400 MG IVPB (23:31)
[2020-10-31 00:45] VITALS: BP 99/59; PULSE 75; RESP 17; TEMP 36.5; O2SAT 94
[2020-10-31 06:58] VITALS: BP 126/72; PULSE 79; RESP 22; TEMP 36.5; O2SAT 95
[2020-10-31 07:01] LABS: HCT 35.3 % (36.0-46.0); MCH 30.7 pg (27.0-33.0); MCHC 33.1 % (32.0-36.0); MCV 92.7 fL (80-95); MPV 13.9 fL (8.0-11.0); Nucleated RBC 0 %; RBC 3.81 10^6/uL (3.93-5.22); RDW 14.9 % (11.7-14.6); RDW-SD 51.2 fL; WBC 7.35 10^3/uL (4.4-10.8)
[2020-10-31 07:08] LABS: HGB 11.7 g/dL (11.2-15.7)
[2020-10-31 07:21] LABS: Absolute Lymphocyte Count 0.81 10^3/uL (1.2-3.4); Absolute Monocyte Count 0.44 10^3/uL (0.1-0.8); Absolute Neutrophil Count 5.88 10^3/uL (1.2-6.7); Bands % 24; Diff Comment Manual Differential; Metamyelocytes % 2; Myelocytes % 1
[2020-10-31 07:22] LABS: Platelet Count 95 10^3/uL (130-400); RBC Morphology Normal
[2020-10-31 07:29] LABS: Anion Gap 12.8 mmol/L (3-11); BUN 22 mg/dL (7-18); CO2 22.2 mmol/L (21.0-32.0); CREATININE 1.1 mg/dL (0.55-1.02); Calcium 7.7 mg/dL (8.5-10.1); Chloride 110 mmol/L (98-107); Estimated GFR 48.04 (mL/min/1.73m2); Glucose 102 mg/dL (74-106); Sodium 145 mmol/L (136-145)
[2020-10-31] MEDS: ACETAMINOPHEN 1,000 MG/100 ML BTL 400 MG IVPB ×3 (08:26→23:45)
[2020-10-31] MEDS: FAMOTIDINE 20 MG/50 ML BAG 200 MG IVPB ×2 (08:27)
[2020-10-31] MEDS: Normal Saline 1,000 ML 100 ML IV ×2 (10:46→16:11)
--- NOTE | 2020-10-31 11:46 | W.PM.PROGNOT ---
Date of Service Date of service: 10/31/20 Time of Service: 09:46 Assessment and Plan Assessment and plan (1) Ruptured suppurative appendicitis: Status: Acute Assessment and plan: Postoperative day #1 status post open appendectomy secondary to grossly feculent perforated appendicitis -Continue IV antibiotics and IV fluids -Maintain nasogastric tube as likelihood of postoperative/reactive ileus is high -Maintain Ortega for accurate I&O, likely remove tomorrow AM -Encourage PT/OT, ambulation and incentive spirometer use -Continue to monitor wound VAC and abdominal drain output -Laboratory studies reviewed, will continue to trend. Decrease in platelets today as well as slight decrease in hemoglobin, will continue to monitor. Suspect secondary to active infection/severe perforated appendicitis. Morning Lovenox held. Subjective Subjective Patient reports: feels better, pain is less, no flatus, no bowel movement and afebrile Exam Const General: comfortable, no acute distress, well developed and well groomed Orientation: alert, awake and oriented x3 HENMT General nose exam: other (nasogastric tube in place) Resp Effort & Inspection: normal respiratory effort, able to speak in complete sentences and no audible wheezes GI Inspection: incision (intact, RLQ wound vac serosanguineous drainage, drain serosanguineous) Palpation: soft and tender (appropriate post operative tenderness) Percussion: normal to percussion General: other (ortega catheter in place) Skin General skin exam: no rashes or lesions noted Neuro General: patient alert, patient awake and patient oriented x3 Cognition: normal cognition Speech: speech normal Objective Last Vital Signs Temp 97.7 F 10/31/20 06:58 Pulse 79 10/31/20 06:58 Resp 22 10/31/20 06:58 BP 126/72 10/31/20 06:58 Pulse Ox 95 10/31/20 06:58 Laboratory Results - last 24 hr 10/30/20 10/31/20 10/31/20 17:45 06:15 06:15 WBC 7.35 D RBC 3.81 L Hgb 11.7 D Hct 35.3 L MCV 92.7 MCH 30.7 MCHC 33.1 RDW 14.9 H Plt Count 95 L MPV 13.9 H Immature Gran % 0.0 Neutrophils % 56.0 Band Neutrophils % 24 Lymphocytes % 11.0 Monocytes % 6.0 Eosinophils % 0.0 Basophils % 0.0 Metamyelocytes % 2 Myelocytes % 1 Nucleated RBC % 0 Absolute Neutrophils 5.88 Absolute Lymphocytes 0.81 L Absolute Monocytes 0.44 Absolute Eosinophils 0.00 Absolute Basophils 0.00 RBC Morphology Normal Sodium 145 Potassium 4.0 Chloride 110 H Carbon Dioxide 22.2 Anion Gap 12.8 H BUN 22 H D Creatinine 1.1 H Estimated GFR/1.73 m2 48.04 Glucose 102 Calcium 7.7 L Magnesium 2.0 Urine Color Yellow Urine Clarity Sl Cloudy Urine pH 6.0 Ur Specific [place] >= 1.030 H Urine Protein 30 H Urine Ketones Negative Urine Blood Small H Urine Nitrite Negative Urine Bilirubin Negative Urine Urobilinogen 0.2 Ur Leukocyte Esterase Negative Urine RBC 20-50 H Urine WBC 0-2 Ur Epithelial Cells Negative Urine Crystals Many Amorphous Urine Bacteria Rare Urine Mucus Negative Urine Other Many Transitional Ur Culture Indicated? No Urine Glucose Negative
[2020-10-31] MEDS: ERTAPENEM 1 GM in Normal Saline 50 ML IVPB (11:51)
[2020-10-31] MEDS: Normal Saline 500 ML IV ×2 (12:24→16:37)
[2020-10-31 12:31] VITALS: BP 130/67; PULSE 78; RESP 18; TEMP 37.2; O2SAT 97
--- NOTE | 2020-10-31 16:50 | CHAPLAIN ---
Jessica had surgery yesterday. She was sitting up in her chair when I visited today and said she's been doing well following the surgery. Family members and friends have been in to visit. Jessica is a member of the [employer] in [place], and asked me to call her activity specialist, Rev. Hargrove August yesterday. Beena called and spoke with Jessica last night and may visit today. I offered a prayer with Jessica yesterday before her surgery. Jessica was here about a year ago for a broken hip from when she fell outside. She seems well supported by family and friends.
--- NOTE | 2020-10-31 16:57 | CMPROGNOTE_ITS ---
Care Management Progress Note S/O: Kelsea continues to be closely monitored post surgically; refer to MD note for further information. CM continues to follow. A: 80 year old female admitted to [facility] 10/30/20 for acute appendicitis P: Kelsea will be brought to the OR for surgical intervention for acute appendicitis and be closely monitored and treated post operatively. CM continues to follow.
[2020-10-31 19:22] VITALS: BP 134/75; PULSE 77; RESP 18; TEMP 36.5; O2SAT 94
[2020-10-31 21:40] VITALS: BP 119/71; PULSE 82; RESP 17; TEMP 36.4; O2SAT 96
[2020-11-01] MEDS: Normal Saline 1,000 ML 100 ML IV ×2 (02:20→09:42)
[2020-11-01 03:57] VITALS: BP 116/62; PULSE 75; RESP 18; TEMP 36.7; O2SAT 97
--- NOTE | 2020-11-01 06:26 | W.ANESPOSTOP ---
Postoperative Evaluation Date, Time and Location Date Performed: 10/31/20 Time Performed: 11:30 Patient Location: Med/Surg Vital Signs Most Recent Imported Vital Signs: Most Recent Vital Signs Temp Pulse Resp BP Pulse Ox 36.4 C L 82 17 119/71 96 10/31/20 21:40 10/31/20 21:40 10/31/20 21:40 10/31/20 21:40 10/31/20 21:40 Pain Score Most Recent Pain Score: Most Recent Pain Score Pain Level 0 10/31/20 19:22 Assessment Mental Status: Awake (Alert & Oriented to Patient Baseline) Airway and Respiratory Function: Patent airway with normal (patient baseline) respiratory exam Cardiovascular Function: Hemodynamically Stable Hydration Status: Adequately Hydrated Nausea & Vomiting: No Nausea or Vomiting Pain: Pt. Denies Any Pain Peripheral Nerve Block: Patient did not receive a nerve block
[2020-11-01 06:50] LABS: HCT 36.3 % (36.0-46.0); HGB 11.6 g/dL (11.2-15.7); MCV 93.8 fL (80-95); MPV 13.9 fL (8.0-11.0); Nucleated RBC 0 %; Platelet Count 118 10^3/uL (130-400); RBC 3.87 10^6/uL (3.93-5.22); RDW 15.2 % (11.7-14.6); RDW-SD 52.9 fL; WBC 8.01 10^3/uL (4.4-10.8)
[2020-11-01 07:05] VITALS: BP 152/80; PULSE 85; RESP 26; TEMP 36.5; O2SAT 93
[2020-11-01 07:08] LABS: Anion Gap 11.4 mmol/L (3-11); BUN 21 mg/dL (7-18); CO2 19.6 mmol/L (21.0-32.0); CREATININE 0.9 mg/dL (0.55-1.02); Calcium 7.5 mg/dL (8.5-10.1); Chloride 112 mmol/L (98-107); Glucose 72 mg/dL (74-106); Magnesium 2.2 mg/dL (1.8-2.4); Potassium 3.6 mmol/L (3.5-5.1); Sodium 143 mmol/L (136-145)
[2020-11-01] MEDS: ACETAMINOPHEN 1,000 MG/100 ML BTL 400 MG IVPB ×3 (07:09→23:33)
[2020-11-01 07:13] LABS: Albumin 2.1 g/dL (3.4-5.0)
[2020-11-01 07:30] LABS: Absolute Neutrophil Count 6.57 10^3/uL (1.2-6.7); Bands % 2
[2020-11-01 07:31] LABS: Absolute Basophil Count 0.08 10^3/uL (0.0-0.2); Absolute Eosinophil Count 0.24 10^3/uL (0.0-0.7); Absolute Lymphocyte Count 0.88 10^3/uL (1.2-3.4); Absolute Monocyte Count 0.24 10^3/uL (0.1-0.8); Diff Comment Manual Differential; RBC Morphology Normal
--- NOTE | 2020-11-01 07:52 | W.PM.PROGNOT ---
Documented by User: DEIDRA Brumfield 11/01/20 07:56 Date of Service Date of service: 11/01/20 Time of Service: 07:30 Assessment and Plan Assessment and plan (1) Ruptured suppurative appendicitis: Status: Acute Assessment and plan: Postoperative day #2 status post open appendectomy secondary to grossly feculent perforated appendicitis -Continue IV antibiotics and IV fluids -NG tube has been d/c -Whittaker D/c'd -Encourage PT/OT, ambulation and incentive spirometer use -Continue to monitor wound VAC and abdominal drain output -Laboratory studies reviewed, will continue to trend. Decrease in platelets today as well as slight decrease in hemoglobin, will continue to monitor. Suspect secondary to active infection/severe perforated appendicitis. Morning Lovenox held. Subjective Subjective Interval history since last seen: Patient reports she is feeling well, the only sore spot is here (pointing to LLQ near open incision). She states she has been walking frequently and has had two BMs that were loose and made a mess. Exam Const General: cooperative, healthy appearing and comfortable Orientation: alert and oriented x3 GI Inspection: normal to inspection Palpation: soft, no guarding and tender in the LLQ Auscultation: normal bowel sounds Other: CAROL drain with serosanguinous output Wound vac in place Objective Last Vital Signs Temp 36.5 C 11/01/20 07:05 Pulse 85 11/01/20 07:05 Resp 26 H 11/01/20 07:05 BP 152/80 H 11/01/20 07:05 Pulse Ox 93 11/01/20 07:05 Laboratory Results - last 24 hr 11/01/20 11/01/20 11/01/20 06:18 06:18 06:18 WBC 8.01 RBC 3.87 L Hgb 11.6 Hct 36.3 MCV 93.8 MCH 30.0 MCHC 32.0 RDW 15.2 H Plt Count 118 L MPV 13.9 H Immature Gran % 0.0 Neutrophils % 80.0 Band Neutrophils % 2 Lymphocytes % 11.0 Monocytes % 3.0 Eosinophils % 3.0 Basophils % 1.0 Nucleated RBC % 0 Absolute Neutrophils 6.57 Absolute Lymphocytes 0.88 L Absolute Monocytes 0.24 Absolute Eosinophils 0.24 Absolute Basophils 0.08 RBC Morphology Normal Sodium 143 Potassium 3.6 Chloride 112 H Carbon Dioxide 19.6 L Anion Gap 11.4 H BUN 21 H Creatinine 0.9 Estimated GFR/1.73 m2 >= 60.00 Glucose 72 L Calcium 7.5 L Magnesium 2.2 Albumin 2.1 L Documented by User: Claribel Koehler DO 11/01/20 08:01
--- NOTE | 2020-11-01 09:55 | W.PM.PROGNOT ---
Date of Service Date of service: 11/01/20 Time of Service: 08:30 Assessment and Plan Assessment and plan (1) Ruptured suppurative appendicitis: Status: Acute Assessment and plan: Postoperative day #2 status post open appendectomy for ruptured appendicitis -Continue IV antibiotics, leukocytois resolved -AM labs reviewed, Hb stable, platelets increasing -Decrease IV fluids and start clear liquid diet, NG tube removed last evening as patient began having flatus and bowel movements -Wound VAC changed at bedside today 6cm long x 3cm wide x 4cm deep -Home wound VAC paperwork completed -Monitor drain output -Lovenox for DVT ppx -Encourage ambulation, PT/OT, incentive spirometer use -Remove Ortega catheter today, awaiting trial of void Subjective Subjective Patient reports: feels better, flatus, bowel movement, diarrhea and afebrile; denies nausea and vomiting Exam Const General: cooperative, healthy appearing, comfortable and no acute distress Orientation: alert, awake and oriented x3 Cardio Rate: regular rate Rhythm: regular rhythm GI Inspection: normal to inspection and incision (intact, wound vac, drain) Palpation: tender (mild over rlq wound) Percussion: normal to percussion General: other (ortega in place) Objective Last Vital Signs Temp 97.7 F 11/01/20 07:05 Pulse 85 11/01/20 07:05 Resp 26 H 11/01/20 07:05 BP 152/80 H 11/01/20 07:05 Pulse Ox 93 11/01/20 07:05 Laboratory Results - last 24 hr 11/01/20 11/01/20 11/01/20 06:18 06:18 06:18 WBC 8.01 RBC 3.87 L Hgb 11.6 Hct 36.3 MCV 93.8 MCH 30.0 MCHC 32.0 RDW 15.2 H Plt Count 118 L MPV 13.9 H Immature Gran % 0.0 Neutrophils % 80.0 Band Neutrophils % 2 Lymphocytes % 11.0 Monocytes % 3.0 Eosinophils % 3.0 Basophils % 1.0 Nucleated RBC % 0 Absolute Neutrophils 6.57 Absolute Lymphocytes 0.88 L Absolute Monocytes 0.24 Absolute Eosinophils 0.24 Absolute Basophils 0.08 RBC Morphology Normal Sodium 143 Potassium 3.6 Chloride 112 H Carbon Dioxide 19.6 L Anion Gap 11.4 H BUN 21 H Creatinine 0.9 Estimated GFR/1.73 m2 >= 60.00 Glucose 72 L Calcium 7.5 L Magnesium 2.2 Albumin 2.1 L
[2020-11-01 11:23] VITALS: BP 135/73; PULSE 80; RESP 22; TEMP 36.6; O2SAT 97
[2020-11-01] MEDS: ERTAPENEM 1 GM in Normal Saline 50 ML IVPB (12:20)
--- NOTE | 2020-11-01 12:44 | PHA.REVIEW ---
Pharmacy Admission Review - Admission Clinical Review (Last Reviewed 10/30/20 @ 03:45 by Shane Arriaga MD) Ruptured suppurative appendicitis (Acute) Acute appendicitis (Acute) Unspecified vertiginous syndromes and labyrinthine disorders (Acute) Anal fissure (Acute) Tubulovillous adenoma polyp of rectum (Acute) morphine Allergy (Severe, Unverified 10/30/20 03:32) throat closed up alendronate sodium [From Fosamax] Allergy (Intermediate, Unverified 10/30/20 03:32) chest pain celecoxib [From Celebrex] Adverse Reaction (Severe, Unverified 10/30/20 03:32) Diarrhea propranolol HCl [From Inderal LA] Adverse Reaction (Intermediate, Unverified 10/30/20 03:32) depression tramadol HCl [From Ultram] Adverse Reaction (Intermediate, Unverified 10/30/20 03:32) Got High Resuscitation Status Full Code Height 5 ft 1 in Weight 53 kg - Renal Dosing Renal Dosing: BUN 21 mg/dL (7-18) H 11/01/20 06:18 Creatinine 0.9 mg/dL (0.55-1.02) 11/01/20 06:18 Medications needing adjustments: Reviewed (Crcl ~38.87 mL/min current meds okay) - Anticoagulation Anticoagulation: Hgb 11.6 g/dL (11.2-15.7) 11/01/20 06:18 Hct 36.3 % (36.0-46.0) 11/01/20 06:18 Plt Count 118 10^3/uL (130-400) L 11/01/20 06:18 Creatinine 0.9 mg/dL (0.55-1.02) 11/01/20 06:18 DVT Prophylaxis: Intervened (Enoxaparin was held yesterday due to low platelets and drop in hemoglobin. Progress note today mentioned lovenox but no active order, checked with provider who planned to re-order.) Medications: Enoxaparin - Opiate Usage Evaluate Pain Scale/Pains Meds: Reviewed Scheduled Bowel Reg ordered if on Opiates?: No (provider aware) - Relevant Labs Sodium 143 mmol/L (136-145) 11/01/20 06:18 Potassium 3.6 mmol/L (3.5-5.1) 11/01/20 06:18 Chloride 112 mmol/L (98-107) H 11/01/20 06:18 Magnesium 2.2 mg/dL (1.8-2.4) 11/01/20 06:18 Electrolytes, C-Reactive P, ESR: Reviewed - DM Control DM Control: Glucose 72 mg/dL (74-106) L 11/01/20 06:18 Insulin Dosing: N/A - Heart Failure/MA EF%, MÓNICA's, B-Blockers, Diuretics: N/A - BP Control BP Control: Blood Pressure 135/73 Blood Pressure 152/80 Blood Pressure 116/62 If elevated: Reviewed (BP has been up and down since admission (low, normal, and high).) - Qtc Review If Elevated: N/A - IV to PO Switch IV Medications: Reviewed - Home Meds Home Med List reviewed: Reviewed Relevent Home Meds Not ordered & why?: calcium/vit D, cholecalciferol, denosumab, docusate, hydrocortisone (PRN), multivitamin, naproxen - Current meds Current Medication Order Review: Intervened (Ertapenem currently ordered, micro speciated some and growing psuedomonas (ertapenem is not active effective for psudomonas), made sure provider was aware.) - Comments Comments/Follow Ups: Watch BP, labs, for micro results, and for med changes (IV to PO, home meds, possible renal dose adjustments). Antibiotic Activity - Pharmacy Antibiotic Review Pharmacy Antibiotic Activity: Abx regimen adjustment (Surgical culture growing pseudomonas, another gram negative rogelio and 2 strep species. Ertapenem being changed to meropenem to cover for pseudomonas.)
--- NOTE | 2020-11-01 13:54 | CHAPLAIN ---
Jessica was up in her chair when I visited. She said she is feeling well and was able to sleep some last night. She had her appendix out yesterday. Jessica is a member of the [employer] in [place], and her die cutting machine operator, Rev. Beena Lilly has been in touch with her. Friends and familyl members have been in to visit.
[2020-11-01 15:20] VITALS: BP 145/75; PULSE 85; RESP 18; TEMP 36.9; O2SAT 96
[2020-11-01] MEDS: Enoxaparin 40 MG/0.4 ML SYR SC (15:53)
[2020-11-01] MEDS: MEROPENEM 1 GM in Normal Saline 100 ML IVPB (16:34)
--- NOTE | 2020-11-01 17:13 | CMPROGNOTE_ITS ---
Care Management Progress Note S/O: Kelsea was sitting up in the chair, on the phone. She was dressed in her own clothes and reported she was walking the hallways independently. She reported anticipating that she will discharge home on Wednesday. She shared no concerns at this time. CM continues to follow. A: 80 year old female admitted to [facility] 10/30/20 for acute appendicitis P: Kelsea continues to be closely monitored and treated post operatively. She has CAROL drain and wound vac; anticipate home wound vac will arrive on Wednesday per M/S Director. Anticipate Kelsea will have new orders for VNA RN support of drain, dressing changes/wound vac. She will transport via private vehicle with family. CM continues to follow.
[2020-11-01 22:31] VITALS: BP 130/72; PULSE 75; RESP 16; TEMP 35.7; O2SAT 95
[2020-11-02] MEDS: Normal Saline 1,000 ML 50 ML IV (04:14)
[2020-11-02] MEDS: MEROPENEM 1 GM in Normal Saline 100 ML IVPB ×2 (04:14→16:31)
[2020-11-02 04:24] VITALS: BP 142/72; PULSE 74; RESP 16; TEMP 36.4; O2SAT 93
[2020-11-02 07:01] LABS: Abs Immature Grans 0.05 10^3/uL (0.0-0.06); Absolute Basophil Count 0.04 10^3/uL (0.0-0.2); Absolute Eosinophil Count 0.36 10^3/uL (0.0-0.7); Absolute Lymphocyte Count 0.66 10^3/uL (1.2-3.4); Absolute Monocyte Count 0.49 10^3/uL (0.1-0.8); Absolute Neutrophil Count 4.96 10^3/uL (1.2-6.7); Basophils % 0.6; Eosinophils % 5.5; HCT 36.6 % (36.0-46.0); Immature Grans % 0.8; Lymphocytes % 10.1; MCH 30.4 pg (27.0-33.0); MCHC 32.8 % (32.0-36.0); MCV 92.7 fL (80-95); Monocytes % 7.5; Neutrophils % 75.5; Nucleated RBC 0 %; RBC 3.95 10^6/uL (3.93-5.22); RDW-SD 51.8 fL; WBC 6.56 10^3/uL (4.4-10.8)
[2020-11-02 07:14] LABS: ALT 14 U/L (14-59); AST 13 U/L (15-37); Albumin 1.8 g/dL (3.4-5.0); Alkaline Phosphatase 55 U/L (46-116); BUN 13 mg/dL (7-18); Bilirubin, Total 0.3 mg/dL (0.2-1.0); CREATININE 0.9 mg/dL (0.55-1.02); Calcium 7.7 mg/dL (8.5-10.1); Chloride 112 mmol/L (98-107); Glucose 88 mg/dL (74-106); Magnesium 2.2 mg/dL (1.8-2.4); Potassium 3.3 mmol/L (3.5-5.1); Sodium 144 mmol/L (136-145); Total Protein 5.3 g/dL (6.4-8.2)
[2020-11-02] MEDS: ACETAMINOPHEN 1,000 MG/100 ML BTL 400 MG IVPB (07:38)
[2020-11-02 07:42] VITALS: BP 138/67; PULSE 78; RESP 18; TEMP 36.3; O2SAT 94
[2020-11-02 07:56] LABS: Diff Comment Diff Reviewed; RBC Morphology Normal
[2020-11-02] MEDS: Potassium Chloride 20 MEQ TABCR 40 MEQ PO ×2 (08:42→19:50)
--- NOTE | 2020-11-02 09:03 | W.PM.PROGNOT ---
Date of Service Date of service: 11/02/20 Time of Service: 07:03 Assessment and Plan Assessment and plan (1) Ruptured suppurative appendicitis: Status: Acute Assessment and plan: Postoperative day #3 status post open appendectomy for ruptured appendicitis -Continue IV antibiotics for now, adjusted yesterday per pharmacy recommendations for pseudomonas coverage -AM labs reviewed, Hb stable, platelets stable -Hypokalemia treated with PO KCl -Advance to regular diet as tolerated -Wound VAC changed at bedside yesterday, next change Wednesday 6cm long x 3cm wide x 4cm deep -Home wound VAC paperwork completed -Monitor drain output, likely remove prior to DC -Lovenox for DVT ppx -Encourage ambulation, PT/OT, incentive spirometer use Subjective Subjective Patient reports: feels better, tolerating liquids well, bowel movement, diarrhea and afebrile; denies nausea and vomiting Exam Const General: cooperative, healthy appearing, comfortable and no acute distress Resp Effort & Inspection: normal respiratory effort and no audible wheezes Cardio Rate: regular rate Rhythm: regular rhythm GI Inspection: incision (intact with skin glue/vac) and other (drain in place with serous fluid) Palpation: soft Percussion: normal to percussion Skin General skin exam: no rashes or lesions noted Objective Last Vital Signs Temp 97.3 F L 11/02/20 07:42 Pulse 78 11/02/20 07:42 Resp 18 11/02/20 07:42 BP 138/67 11/02/20 07:42 Pulse Ox 94 11/02/20 07:42 Laboratory Results - last 24 hr 11/02/20 11/02/20 06:25 06:25 WBC 6.56 RBC 3.95 Hgb 12.0 Hct 36.6 MCV 92.7 MCH 30.4 MCHC 32.8 RDW 15.0 H Plt Count MPV Immature Gran % 0.8 Neutrophils % 75.5 Lymphocytes % 10.1 Monocytes % 7.5 Eosinophils % 5.5 Basophils % 0.6 Nucleated RBC % 0 Absolute Neutrophils 4.96 Absolute Lymphocytes 0.66 L Absolute Monocytes 0.49 Absolute Eosinophils 0.36 Absolute Basophils 0.04 RBC Morphology Normal Sodium 144 Potassium 3.3 L Chloride 112 H Carbon Dioxide 21.0 Anion Gap 11.0 BUN 13 D Creatinine 0.9 Estimated GFR/1.73 m2 >= 60.00 Glucose 88 Calcium 7.7 L Magnesium 2.2 Total Bilirubin 0.3 AST 13 L ALT 14 Alkaline Phosphatase 55 Total Protein 5.3 L Albumin 1.8 L
[2020-11-02 12:50] LABS: Platelet Count 164 10^3/uL (130-400)
[2020-11-02] MEDS: Lactobacillus Acidophilus CAP 1 CAP PO (14:54)
[2020-11-02 16:15] VITALS: BP 162/84; PULSE 83; RESP 18; TEMP 36.7; O2SAT 97
[2020-11-02] MEDS: Acetaminophen 325 MG TAB 650 MG PO (16:31)
[2020-11-02] MEDS: Enoxaparin 40 MG/0.4 ML SYR SC (16:31)
[2020-11-02 19:52] VITALS: BP 160/73; PULSE 87; RESP 16; TEMP 36.8; O2SAT 95
--- NOTE | 2020-11-03 | DI.CT_ITS ---
Exam(s) CT ABDOMEN PELVIS W EXAM: CT ABDOMEN PELVIS W CLINICAL HISTORY: rule out post op abscess. TECHNIQUE: Imaging Protocol: Axial computed tomography images with coronal and sagittal reformatted images were created and reviewed CONTRAST MATERIAL: Intravenous: Omnipaque 76cc Oral: None COMPARISON: CT CT RENAL COLIC WO from 10/30/2020 FINDINGS: VISUALIZED LUNG BASES: There are now small bilateral pleural effusions and mild infiltrate in the fausto g bases.. ABDOMEN: There is a percutaneous Sabas-ype drain. Distal tip is at the liver level. LIVER: There are no focal hepatic lesions evident . GALLBLADDER/BILIARY: Mild fluid around the gallbladder no obvious gallstones. CBD is not dilated. PANCREAS: No evidence of pancreatic mass nor dilatation of the pancreatic duct. SPLEEN: Spleen is not enlarged. No obvious intrasplenic lesions. Splenic and portal veins are paten t. ADRENALS: There are no significant adrenal masses. KIDNEYS:No cysts evident. No solid renal masses. 3 millimeter calculus seen in the left kidney. Ag ain either parapelvic cysts or mild dilatation of the upper left collecting system. The ureters are not dilated. ABDOMINAL AORTA: Abdominal aorta is not enlarged. LYMPH NODES:There is no retroperitineal nor paraaortic adenopathy. ABDOMINAL WALL: No evidence of significant anterior abdominal wall hernia. GI: There is no evidence of bowel obstruction, free air, nor abscess. PELVIS: GI: It is not clear on these images if the appendix has not the been removed. There is still a dilat ed viscus at this level which exhibits a diameter of 16 millimeters. There is phlegmonous streaking. In addition, there is an organized fluid collection in the dependent aspect of the pelvis now evide nt, this measuring 5 cm craniocaudal by 4.2 cm wide by 3.6 cm AP.No evidence of sigmoid diverticuliti s. LYMPH NODES: There is no intrapelvic nor inguinal adenopathy. REPRODUCTIVE: Uterus is atrophic or surgically absent. URINARY BLADDER: Mildly distended. OSSEOUS: Right hip hardware. No significant osseous lesions. IMPRESSION: 1. Compared to prior CT scan of 10/30/2020 there has been interval surgery and placement of right-gabe ed Sabas drain. There is still a swollen viscus in this region, possibly the appendix. There is now a organized fluid collection in the deep pelvis measuring 5 by 4.2 cm which is probably an abscess a nd was not evident on the prior CT scan 4 days ago. The indwelling Sabas drain is not servicing the region of this fluid collection-probable abscess. 2. 3. 4. RADIATION DOSE DELIVERED: 645.59mGy.cm Total DLP DATA REPOSITORY: All CT scans at this facility are submitted to the National Radiology Data Registry (NRDR) Dose Index Registry (DIR) with the [employer] (ACR). RADIATION OPTIMIZATION: All CT scans at this facility use at least one of these dose optimization te chniques: automated exposure control; mA and/or kV adjustment per patient size (includes targeted exa ms where dose is matched to clinical indication); or iterative reconstruction.
[2020-11-03] MEDS: Acetaminophen 325 MG TAB 650 MG PO ×3 (02:06→17:38)
[2020-11-03] MEDS: Normal Saline Flush 10 ML SYR IVP ×5 (03:19→19:55)
[2020-11-03] MEDS: MEROPENEM 1 GM in Normal Saline 100 ML IVPB ×2 (03:19→16:57)
[2020-11-03 06:55] LABS: Abs Immature Grans 0.07 10^3/uL (0.0-0.06); Absolute Basophil Count 0.04 10^3/uL (0.0-0.2); Absolute Eosinophil Count 0.21 10^3/uL (0.0-0.7); Absolute Lymphocyte Count 1.05 10^3/uL (1.2-3.4); Absolute Monocyte Count 0.74 10^3/uL (0.1-0.8); Absolute Neutrophil Count 3.49 10^3/uL (1.2-6.7); Basophils % 0.7; Eosinophils % 3.8; HCT 39.3 % (36.0-46.0); Immature Grans % 1.3; Lymphocytes % 18.8; MCH 29.7 pg (27.0-33.0); MCHC 33.1 % (32.0-36.0); MCV 89.7 fL (80-95); Monocytes % 13.2; Neutrophils % 62.2; Nucleated RBC 0 %; Platelet Count 164 10^3/uL (130-400); RBC 4.38 10^6/uL (3.93-5.22); RDW 14.7 % (11.7-14.6); RDW-SD 48.9 fL
[2020-11-03 07:32] LABS: ALT 14 U/L (14-59); AST 13 U/L (15-37); Alkaline Phosphatase 64 U/L (46-116); Anion Gap 10.7 mmol/L (3-11); BUN 9 mg/dL (7-18); Bilirubin, Total 0.4 mg/dL (0.2-1.0); CO2 23.3 mmol/L (21.0-32.0); CREATININE 0.8 mg/dL (0.55-1.02); Calcium 8.4 mg/dL (8.5-10.1); Chloride 110 mmol/L (98-107); Glucose 115 mg/dL (74-106); Potassium 3.7 mmol/L (3.5-5.1); Sodium 144 mmol/L (136-145)
--- NOTE | 2020-11-03 07:38 | W.PM.PROGNOT ---
Date of Service Date of service: 11/03/20 Time of Service: 08:54 Assessment and Plan Assessment and plan (1) Ruptured suppurative appendicitis: Status: Acute Assessment and plan: Postoperative day #4 status post open appendectomy for grossly feculent perforated appendicitis -Continue IV antibiotics, currently on IV meropenem -Probiotic added yesterday to assist with loose stools -Protein supplementation added today to assist with hypoalbuminemia and encourage wound healing -Replete electrolytes as needed -P.o. home medications restarted -Plan to change wound VAC at bedside tomorrow and likely DC drain -Continue PT/OT as tolerated, encourage ambulation and incentive spirometer use -Plan for discharge home tomorrow with home wound care and possibly home PT Subjective Subjective Patient reports: no new complaints, feels better, tolerating a regular diet and diarrhea; denies nausea and vomiting Exam Const General: cooperative, healthy appearing, comfortable and no acute distress Resp Effort & Inspection: normal respiratory effort and no audible wheezes Cardio Rate: regular rate Rhythm: regular rhythm GI Inspection: non-distended and incision (intact) Palpation: soft, no guarding, nontender and other (vac and drain in place) Percussion: normal to percussion Skin General skin exam: no rashes or lesions noted Objective Last Vital Signs Temp 98.2 F 11/02/20 19:52 Pulse 87 11/02/20 19:52 Resp 16 11/02/20 19:52 BP 160/73 H 11/02/20 19:52 Pulse Ox 95 11/02/20 19:52 Laboratory Results - last 24 hr 11/02/20 11/02/20 11/03/20 06:25 12:42 06:00 WBC 6.56 RBC 3.95 Hgb 12.0 Hct 36.6 MCV 92.7 MCH 30.4 MCHC 32.8 RDW 15.0 H Plt Count 164 MPV Immature Gran % 0.8 Neutrophils % 75.5 Lymphocytes % 10.1 Monocytes % 7.5 Eosinophils % 5.5 Basophils % 0.6 Nucleated RBC % 0 Absolute Neutrophils 4.96 Absolute Lymphocytes 0.66 L Absolute Monocytes 0.49 Absolute Eosinophils 0.36 Absolute Basophils 0.04 RBC Morphology Normal Sodium 144 Potassium 3.7 Chloride 110 H Carbon Dioxide 23.3 Anion Gap 10.7 BUN 9 Creatinine 0.8 Estimated GFR/1.73 m2 >= 60.00 Glucose 115 H Calcium 8.4 L Magnesium 2.0 Total Bilirubin 0.4 AST 13 L ALT 14 Alkaline Phosphatase 64 C-Reactive Protein 13.90 H Total Protein 6.0 L Albumin 2.0 L 11/03/20 06:00 WBC 5.60 RBC 4.38 Hgb 13.0 Hct 39.3 MCV 89.7 D MCH 29.7 MCHC 33.1 RDW 14.7 H Plt Count 164 MPV 13.0 H Immature Gran % 1.3 Neutrophils % 62.2 Lymphocytes % 18.8 Monocytes % 13.2 Eosinophils % 3.8 Basophils % 0.7 Nucleated RBC % 0 Absolute Neutrophils 3.49 Absolute Lymphocytes 1.05 L Absolute Monocytes 0.74 Absolute Eosinophils 0.21 Absolute Basophils 0.04 RBC Morphology Sodium Potassium Chloride Carbon Dioxide Anion Gap BUN Creatinine Estimated GFR/1.73 m2 Glucose Calcium Magnesium Total Bilirubin AST ALT Alkaline Phosphatase C-Reactive Protein Total Protein Albumin
[2020-11-03] MEDS: amLODIPine 2.5 MG TAB PO (07:57)
[2020-11-03] MEDS: Ascorbic Acid 500 MG TAB 1000 MG PO (07:57)
[2020-11-03] MEDS: Potassium Chloride 20 MEQ TABCR 40 MEQ PO (07:57)
[2020-11-03] MEDS: Lactobacillus Acidophilus CAP 1 CAP PO (07:57)
[2020-11-03] MEDS: Multivitamin TAB 1 TAB PO (07:57)
[2020-11-03] MEDS: Calcium 600mg/Vit D 200U TAB 1 TAB PO (07:57)
[2020-11-03 08:06] VITALS: BP 157/67; PULSE 90; RESP 18; TEMP 37.2; O2SAT 95
[2020-11-03] MEDS: Protein Nutritional Supplement 16 GM 1 OUNCE PACKET PO ×2 (10:13→14:04)
[2020-11-03 15:28] VITALS: BP 156/87; PULSE 92; RESP 18; TEMP 36.4; O2SAT 97
[2020-11-03] MEDS: Enoxaparin 40 MG/0.4 ML SYR SC (16:57)
[2020-11-03 17:38] VITALS: TEMP 38.1
[2020-11-03 17:39] VITALS: BP 172/95; PULSE 100; RESP 18; TEMP 38.1; O2SAT 97
[2020-11-03] MEDS: Ketorolac 15 MG/ML VIAL IVP (18:41)
[2020-11-03] MEDS: Normal Saline - Diluent 50 ML VIAL IV (19:41)
[2020-11-03] MEDS: Omnipaque 350 MG/ML 100 ML BTL IJ (19:42)
[2020-11-03] MEDS: Lactated Ringers 1,000 ML 100 ML IV (19:56)
--- NOTE | 2020-11-03 20:18 | DI.VRAD_ITS ---
PROCEDURE INFORMATION: Exam: CT Abdomen And Pelvis With Contrast Exam date and time: 11/03/2020 6:26 PM Age: 80 years old Clinical indication: Fever; Abdominal pain; Generalized; Prior surgery; Surgery date: 3-7 days post-operative; Surgery type: Rule out post op abscess, ; patient HX: Day 4 from open appendectomy for ruptured appy TECHNIQUE: Imaging protocol: Computed tomography of the abdomen and pelvis with contrast. Radiation optimization: All CT scans at this facility use at least one of these dose optimization techniques: automated exposure control; mA and/or kV adjustment per patient size (includes targeted exams where dose is matched to clinical indication); or iterative reconstruction. Contrast material: OMNIPAQUE 350; Contrast volume: 76 ml; Contrast route: INTRAVENOUS (IV); COMPARISON: CT RENAL COLIC WO 10/30/2020 4:25 AM FINDINGS: Tubes, catheters and devices: A surgical drain is seen entering midline and terminating just underneath the liver. Pleural spaces: Small bilateral layering effusions with associated atelectasis. Liver: Normal. No mass. Gallbladder and bile ducts: Mild fluid around the gallbladder may be related to more generalized inflammation, but correlation for cholecystitis is recommended. Pancreas: Normal. No ductal dilation. Spleen: Normal. No splenomegaly. Adrenal glands: Normal. No mass. Kidneys and ureters: Normal. No hydronephrosis. Stomach and bowel: Unremarkable. No obstruction. No mucosal thickening. Appendix: The appendix is not definitively seen and may have been resected. The previously-seen appendicular is gone. Recommend clinical correlation. Intraperitoneal space: There is a rim enhancing fluid collection in the pelvis that measures 5.5 x 3.5 cm. See image 66 of series 4. Trace free fluid in the abdomen. Scattered stranding noted. Vasculature: Coronary artery calcifications are seen. Lymph nodes: Unremarkable. No enlarged lymph nodes. Urinary bladder: Unremarkable as visualized. Reproductive: Unremarkable as visualized. Bones/joints: Bones appear osteopenic. Soft tissues: Right lower quadrant incision seen. IMPRESSION: Probable abscess in the cul-de-sac measures about 3.5 x 5 5 cm. Dictated and Authenticated by: Kumar Hylton MD. Ordering:LEI Sanford MD
[2020-11-03 20:19] VITALS: BP 171/82; PULSE 90; RESP 16; TEMP 37.1; O2SAT 96
[2020-11-03 23:36] VITALS: BP 167/74; PULSE 87; RESP 16; TEMP 36.5; O2SAT 87
[2020-11-04 03:32] VITALS: BP 174/90; PULSE 87; RESP 16; TEMP 36.7; O2SAT 97
[2020-11-04] MEDS: MEROPENEM 1 GM in Normal Saline 100 ML IVPB ×2 (04:28→17:11)
[2020-11-04] MEDS: Lactated Ringers 1,000 ML 100 ML IV (04:29)
[2020-11-04 06:26] LABS: Absolute Basophil Count 0.04 10^3/uL (0.0-0.2); Absolute Eosinophil Count 0.23 10^3/uL (0.0-0.7); Absolute Lymphocyte Count 0.92 10^3/uL (1.2-3.4); Absolute Monocyte Count 0.97 10^3/uL (0.1-0.8); Absolute Neutrophil Count 4.56 10^3/uL (1.2-6.7); Basophils % 0.6; Eosinophils % 3.4; HGB 12.9 g/dL (11.2-15.7); Immature Grans % 1.5; Lymphocytes % 13.5; MCH 30.5 pg (27.0-33.0); MCHC 33.9 % (32.0-36.0); MCV 89.8 fL (80-95); MPV 12.7 fL (8.0-11.0); Monocytes % 14.2; Neutrophils % 66.8; Nucleated RBC 0 %; Platelet Count 167 10^3/uL (130-400); RBC 4.23 10^6/uL (3.93-5.22); RDW 14.8 % (11.7-14.6); RDW-SD 49.5 fL; WBC 6.82 10^3/uL (4.4-10.8)
[2020-11-04 06:41] LABS: ALT 15 U/L (14-59); AST 13 U/L (15-37); Albumin 1.9 g/dL (3.4-5.0); Alkaline Phosphatase 62 U/L (46-116); Anion Gap 7.4 mmol/L (3-11); BUN 11 mg/dL (7-18); Bilirubin, Total 0.4 mg/dL (0.2-1.0); CO2 27.6 mmol/L (21.0-32.0); CREATININE 0.7 mg/dL (0.55-1.02); Calcium 8.2 mg/dL (8.5-10.1); Chloride 106 mmol/L (98-107); Glucose 114 mg/dL (74-106); Magnesium 1.6 mg/dL (1.8-2.4); Potassium 3.5 mmol/L (3.5-5.1); Sodium 141 mmol/L (136-145); Total Protein 5.7 g/dL (6.4-8.2)
--- NOTE | 2020-11-04 08:06 | W.PM.PROGNOT ---
Documented by User: DEIDRA Brumfield 11/04/20 08:12 Date of Service Date of service: 11/04/20 Time of Service: 08:07 Assessment and Plan Assessment and plan (1) Ruptured suppurative appendicitis: Status: Acute Assessment and plan: Postoperative day #5 status post open appendectomy for grossly feculent perforated appendicitis CT scan from last night showed probably abscess located in the cul-de-sac. -Continue IV antibiotics, currently on IV meropenem -Probiotic added yesterday to assist with loose stools -Protein supplementation added today to assist with hypoalbuminemia and encourage wound healing -Replete electrolytes as needed -P.o. home medications restarted -Plan to change wound VAC at bedside today -Continue PT/OT as tolerated, encourage ambulation and incentive spirometer use Subjective Subjective Interval history since last seen: Patient reports she is feeling much better this morning. She states that she does not having any pain this morning. She expresses that she is very eager to return home. She feels confident that she can manage the wound vac with help of HH. Exam Const General: cooperative, healthy appearing and comfortable Orientation: alert and oriented x3 Resp Effort & Inspection: normal respiratory effort, no audible wheezes and no cough GI Palpation: soft, no guarding and nontender Auscultation: normal bowel sounds Other: Wound vac in place CAROL drain with moderate amount of serous fluid Objective Last Vital Signs Temp 36.7 C 11/04/20 03:32 Pulse 87 11/04/20 03:32 Resp 16 11/04/20 03:32 BP 174/90 H 11/04/20 03:32 Pulse Ox 97 11/04/20 03:32 Laboratory Results - last 24 hr 11/04/20 11/04/20 06:15 06:15 WBC 6.82 RBC 4.23 Hgb 12.9 Hct 38.0 MCV 89.8 MCH 30.5 MCHC 33.9 RDW 14.8 H Plt Count 167 MPV 12.7 H Immature Gran % 1.5 Neutrophils % 66.8 Lymphocytes % 13.5 Monocytes % 14.2 Eosinophils % 3.4 Basophils % 0.6 Nucleated RBC % 0 Absolute Neutrophils 4.56 Absolute Lymphocytes 0.92 L Absolute Monocytes 0.97 H Absolute Eosinophils 0.23 Absolute Basophils 0.04 Sodium 141 Potassium 3.5 Chloride 106 Carbon Dioxide 27.6 Anion Gap 7.4 BUN 11 Creatinine 0.7 Estimated GFR/1.73 m2 >= 60.00 Glucose 114 H Calcium 8.2 L Magnesium 1.6 L Total Bilirubin 0.4 AST 13 L ALT 15 Alkaline Phosphatase 62 Total Protein 5.7 L Albumin 1.9 L Documented by User: Claribel Koehler DO 11/04/20 12:10
[2020-11-04 08:11] VITALS: BP 159/76; PULSE 64; RESP 17; TEMP 37.5; O2SAT 95
[2020-11-04] MEDS: Protein Nutritional Supplement 16 GM 1 OUNCE PACKET PO ×3 (09:02→20:40)
[2020-11-04] MEDS: Cholecalciferol (Vitamin D3) 1,000 UNIT TAB 5000 UNITS PO (09:02)
[2020-11-04] MEDS: Calcium 600mg/Vit D 200U TAB 1 TAB PO (09:03)
[2020-11-04] MEDS: amLODIPine 2.5 MG TAB PO (09:03)
[2020-11-04] MEDS: Ascorbic Acid 500 MG TAB 1000 MG PO (09:03)
[2020-11-04] MEDS: Lactobacillus Acidophilus CAP 1 CAP PO (09:03)
[2020-11-04] MEDS: Multivitamin TAB 1 TAB PO (09:03)
[2020-11-04] MEDS: MAGNESIUM SULFATE 2 GM/50 ML BAG IVPB (09:04)
--- NOTE | 2020-11-04 11:28 | CMPROGNOTE_ITS ---
- If Service Date Differs Date of service: 11/04/20 Time of Service: 16:34 Care Management Progress Note S/O: Per provider, plan appears to be for Kelsea to return home on Wednesday. CM faxed [facility] orders, demos and clinicals to [facility] to determine coverage for home IV ABX of Meropenem Q12. Awaiting arrival of home wound vac, RNDAYANARA Joshi reports [facility] has been contacted. LATRICE Vela reports Kelsea has been put on CDIFF precautions due to ongoing diarrhea. CM continues to follow. A: 80 year old female admitted to [facility] 10/30/20 for acute appendicitis P: Kelsea continues to be closely monitored and treated post operatively. She has CAROL drain and wound vac; awaiting arrival of home wound vac, and coordination of Home IV ABX through [facility] and [facility]. Anticipate Kelsea will have new orders for [facility] RN support of drain, dressing changes/wound vac/IV ABX. She will transport via private vehicle with family. CM continues to follow.
--- NOTE | 2020-11-04 11:28 | PDOC.CMPRO ---
- If Service Date Differs Date of service: 11/04/20 Time of Service: 16:34 Care Management Progress Note S/O: Per provider, plan appears to be for Kelsea to return home on Wednesday. CM faxed [facility] orders, demos and clinicals to [facility] to determine coverage for home IV ABX of Meropenem Q12. Awaiting arrival of home wound vac, RNDAYANARA Joshi reports [facility] has been contacted. LATRICE Vela reports Kelsea has been put on CDIFF precautions due to ongoing diarrhea. CM continues to follow. A: 80 year old female admitted to [facility] 10/30/20 for acute appendicitis P: Kelsea continues to be closely monitored and treated post operatively. She has CAROL drain and wound vac; awaiting arrival of home wound vac, and coordination of Home IV ABX through [facility] and [facility]. Anticipate Kelsea will have new orders for [facility] RN support of drain, dressing changes/wound vac/IV ABX. She will transport via private vehicle with family. CM continues to follow.
[2020-11-04 16:05] VITALS: BP 178/76; PULSE 96; RESP 18; TEMP 37.1; O2SAT 96
[2020-11-04] MEDS: Enoxaparin 40 MG/0.4 ML SYR SC (17:10)
[2020-11-04 18:24] LABS: Bilirubin Negative (Negative); Blood Trace-intact (Negative); Clarity Clear (Clear); Glucose Negative (Negative); Ketones Negative (Negative); Leukocyte Esterase Negative (Negative); Nitrite Negative (Negative); Specific Gravity 1.015 (1.005-1.025); Urobilinogen 0.2 EU/dL (Up TO 0.2)
[2020-11-04 18:34] LABS: Bacteria Many HPF (Negative); C & S Indicated? Yes; Crystals Negative HPF (Negative); Epithelial Cells Rare HPF (Negative); Mucus Negative (Negative); WBC Negative HPF (0-5)
[2020-11-04 20:36] VITALS: BP 153/77; PULSE 97; RESP 19; TEMP 37.7; O2SAT 96
[2020-11-04 20:40] VITALS: TEMP 37.7
[2020-11-04] MEDS: Acetaminophen 325 MG TAB 650 MG PO (20:40)
[2020-11-04] MEDS: Normal Saline Flush 10 ML SYR IVP (20:41)
[2020-11-04 23:57] VITALS: BP 152/76; PULSE 89; RESP 16; TEMP 37.5; O2SAT 96
[2020-11-05 03:29] VITALS: BP 166/77; PULSE 97; RESP 20; TEMP 36.9; O2SAT 93
[2020-11-05] MEDS: Acetaminophen 325 MG TAB 650 MG PO ×3 (03:33→22:59)
[2020-11-05] MEDS: MEROPENEM 1 GM in Normal Saline 100 ML IVPB (03:33)
[2020-11-05 05:24] LABS: C Diff PCR Negative (Negative)
--- NOTE | 2020-11-05 07:20 | W.PM.PROGNOT ---
Documented by User: DEIDRA Brumfield 11/05/20 07:26 Date of Service Date of service: 11/05/20 Time of Service: 07:20 Assessment and Plan Assessment and plan (1) Ruptured suppurative appendicitis: Status: Acute Assessment and plan: Postoperative day #6 status post open appendectomy for grossly feculent perforated appendicitis -Continue IV antibiotics, currently on IV meropenem -Blood cultures pending -Continued Diarrhea, will add metamucil BID -Probiotic added -Protein supplementation added today to assist with hypoalbuminemia and encourage wound healing -Replete electrolytes as needed -P.o. home medications restarted -Continue PT/OT as tolerated, encourage ambulation and incentive spirometer use Will contact IR at [facility] [place] for possible drain placement. Subjective Subjective Interval history since last seen: Patient reports she is feeling well. She reports a very loose and smelly BM this morning. These BMs are associated with fecal urgency. She reports that she did have a fever overnight. Exam Const General: cooperative, healthy appearing and comfortable Orientation: alert and oriented x3 Resp Effort & Inspection: normal respiratory effort, no audible wheezes and no cough Objective Last Vital Signs Temp 36.9 C 11/05/20 03:29 Pulse 97 H 11/05/20 03:29 Resp 20 11/05/20 03:29 BP 166/77 H 11/05/20 03:29 Pulse Ox 93 11/05/20 03:29 Laboratory Results - last 24 hr 11/04/20 11/05/20 14:25 03:47 Urine Color Yellow Urine Clarity Clear Urine pH 7.0 Ur Specific [place] 1.015 Urine Protein Negative Urine Ketones Negative Urine Blood Trace-intact H Urine Nitrite Negative Urine Bilirubin Negative Urine Urobilinogen 0.2 Ur Leukocyte Esterase Negative Urine RBC 3-5 H Urine WBC Negative Ur Epithelial Cells Rare Urine Crystals Negative Urine Bacteria Many Urine Mucus Negative Ur Culture Indicated? Yes Urine Glucose Negative Stl C.difficile Tox PCR Negative Documented by User: Lois Mckeon MD 11/05/20 09:45
[2020-11-05 08:04] VITALS: BP 150/78; PULSE 90; RESP 17; TEMP 36.3; O2SAT 97
[2020-11-05 08:05] LABS: Abs Immature Grans 0.13 10^3/uL (0.0-0.06); Absolute Basophil Count 0.05 10^3/uL (0.0-0.2); Absolute Eosinophil Count 0.17 10^3/uL (0.0-0.7); Absolute Lymphocyte Count 1.15 10^3/uL (1.2-3.4); Absolute Monocyte Count 0.95 10^3/uL (0.1-0.8); Absolute Neutrophil Count 4.82 10^3/uL (1.2-6.7); Basophils % 0.7; Eosinophils % 2.3; HCT 38.1 % (36.0-46.0); HGB 12.8 g/dL (11.2-15.7); Immature Grans % 1.8; Lymphocytes % 15.8; MCH 29.8 pg (27.0-33.0); MCHC 33.6 % (32.0-36.0); MCV 88.6 fL (80-95); MPV 12.7 fL (8.0-11.0); Monocytes % 13.1; Neutrophils % 66.3; Nucleated RBC 0 %; Platelet Count 201 10^3/uL (130-400); RDW 14.9 % (11.7-14.6); RDW-SD 48.1 fL; WBC 7.27 10^3/uL (4.4-10.8)
[2020-11-05 08:19] LABS: ALT 18 U/L (14-59); AST 15 U/L (15-37); Albumin 2.2 g/dL (3.4-5.0); Alkaline Phosphatase 64 U/L (46-116); Anion Gap 5.9 mmol/L (3-11); BUN 18 mg/dL (7-18); Bilirubin, Total 0.3 mg/dL (0.2-1.0); CO2 30.1 mmol/L (21.0-32.0); CREATININE 0.7 mg/dL (0.55-1.02); Calcium 8.3 mg/dL (8.5-10.1); Chloride 107 mmol/L (98-107); Glucose 107 mg/dL (74-106); Potassium 3.2 mmol/L (3.5-5.1); Sodium 143 mmol/L (136-145); Total Protein 6.1 g/dL (6.4-8.2)
[2020-11-05] MEDS: Ascorbic Acid 500 MG TAB 1000 MG PO (09:28)
[2020-11-05] MEDS: Lactobacillus Acidophilus CAP 1 CAP PO (09:28)
[2020-11-05] MEDS: Cholecalciferol (Vitamin D3) 1,000 UNIT TAB 5000 UNITS PO (09:28)
[2020-11-05] MEDS: Calcium 600mg/Vit D 200U TAB 1 TAB PO (09:29)
[2020-11-05] MEDS: Multivitamin TAB 1 TAB PO (09:29)
[2020-11-05] MEDS: Protein Nutritional Supplement 16 GM 1 OUNCE PACKET PO ×3 (09:30→19:52)
[2020-11-05] MEDS: Psyllium PKT 1 EACH PO ×2 (09:30→19:52)
[2020-11-05] MEDS: amLODIPine 2.5 MG TAB PO (09:30)
[2020-11-05 12:31] VITALS: BP 165/86; PULSE 103; RESP 18; TEMP 37.3; O2SAT 96
[2020-11-05] MEDS: Ondansetron 4 MG/2 ML VIAL IVP (12:40)
[2020-11-05] MEDS: Normal Saline Flush 10 ML SYR IVP ×3 (12:45→19:52)
[2020-11-05] MEDS: Ketorolac 15 MG/ML VIAL IVP (13:52)
--- NOTE | 2020-11-05 14:33 | CMPROGNOTE_ITS ---
Care Management Progress Note S/O: Per provider, Kelsea will likely require down and back appointment at [facility] for IR drainage of abscess. CM spoke with [facility] who reported speaking with Kelsea and confirming coverage for IV ABX of Meropenem Q12. Awaiting arrival of home wound vac, LATRICE Garcia reports anticipated arrival for tomorrow morning. CM continues to follow. A: 80 year old female admitted to [facility] 10/30/20 for acute appendicitis P: Kelsea continues to be closely monitored and treated post operatively. She has CAROL drain and wound vac; awaiting arrival of home wound vac, coordination of Home IV ABX through [facility] and [facility] completed. Kelsea will have new orders for [facility] RN for support of drains, dressing changes/wound vac/IV ABX. She will transport via private vehicle with family. CM continues to follow.
--- NOTE | 2020-11-05 14:33 | PDOC.CMPRO ---
Care Management Progress Note S/O: Per provider, Kelsea will likely require down and back appointment at [facility] for IR drainage of abscess. CM spoke with [facility] who reported speaking with Kelsea and confirming coverage for IV ABX of Meropenem Q12. Awaiting arrival of home wound vac, LATRICE Garcia reports anticipated arrival for tomorrow morning. CM continues to follow. A: 80 year old female admitted to [facility] 10/30/20 for acute appendicitis P: Kelsea continues to be closely monitored and treated post operatively. She has CAROL drain and wound vac; awaiting arrival of home wound vac, coordination of Home IV ABX through [facility] and [facility] completed. Kelsea will have new orders for [facility] RN for support of drains, dressing changes/wound vac/IV ABX. She will transport via private vehicle with family. CM continues to follow.
--- NOTE | 2020-11-05 14:41 | CHAPLAIN ---
Jessica said she may be taken to [facility], down and back, because of an abscess, but she hasn't been told for sure if that's the plan. Initially she was going home on Wednesday, she said, but has stayed because of the abscess. She is not in any discomfort at the moment. Jessica is a member of [facility] [employer] [facility] [place] [employer]. Her buggy driver, Rev. Hargrove May knows she is here and has called Jessica.
[2020-11-05] MEDS: POTASSIUM CHLORIDE 20 MEQ/100 ML BAG 50 MEQ IVPB ×2 (14:55→17:30)
[2020-11-05] MEDS: metroNIDAZOLE 500 MG/100 ML BAG 100 MG IVPB ×2 (14:55→22:23)
[2020-11-05 15:23] VITALS: BP 149/81; PULSE 91; RESP 18; TEMP 36.7; O2SAT 96
[2020-11-05] MEDS: Enoxaparin 40 MG/0.4 ML SYR SC (16:31)
[2020-11-05] MEDS: CIPROFLOXACIN 400 MG/200 ML BAG 200 MG IVPB (16:31)
--- NOTE | 2020-11-05 19:21 | NUR.NOTE ---
At proximately 1215 patient c/o right lower quad pain that radiated around her back 11/26, charge nurse notified MD ordered toraol patient was given Tylenol, toradol and heating pad that elevated the pain
[2020-11-05] MEDS: Potassium Chloride 20 MEQ TABCR PO (19:52)
[2020-11-05 20:05] VITALS: BP 168/77; PULSE 99; RESP 17; TEMP 37.2; O2SAT 99
[2020-11-05 23:21] VITALS: BP 150/81; PULSE 99; RESP 19; TEMP 36.5; O2SAT 93
[2020-11-06] MEDS: Lactated Ringers 1,000 ML 80 ML IV ×2 (00:03→18:11)
[2020-11-06] MEDS: CIPROFLOXACIN 400 MG/200 ML BAG 200 MG IVPB ×2 (03:07→18:12)
[2020-11-06] MEDS: metroNIDAZOLE 500 MG/100 ML BAG 100 MG IVPB ×2 (06:18→18:12)
[2020-11-06 07:30] VITALS: BP 131/73; PULSE 72; RESP 18; TEMP 36.9; O2SAT 95
--- NOTE | 2020-11-06 08:03 | PGE_ITS ---
Date of Service Date of service: 11/06/20 Time of Service: 08:04 Assessment and Plan Assessment and plan (1) Ruptured suppurative appendicitis: Status: Acute Assessment and plan: Postoperative day #7 status post open appendectomy for grossly feculent perforated appendicitis Today she will be going to IR at [facility] [place] for drain placement. The wound vac dressing will be removed and the wound will be dressed with wet to to dry 4x4s f/b mepilex dressing. Upon her return, the wound vac dressing she be reapplied. -Antibiotics switched to cipro and flagyl -Continued Diarrhea, Added metamucil BID -Probiotic -Protein supplementation added today to assist with hypoalbuminemia and encourage wound healing -Continue PT/OT as tolerated, encourage ambulation and incentive spirometer use -Wound vac changes M,W,F Subjective Subjective Interval history since last seen: Patient reports that she is doing okay today, however she has already had a few loose bowel movements this morning. She states that the toradol is very helpful in managing her pain. Exam Const General: cooperative, healthy appearing and comfortable Orientation: alert and oriented x3 Resp Effort & Inspection: normal respiratory effort, no audible wheezes and no cough GI Inspection: normal to inspection Palpation: soft, no guarding and tender (Lower abdomen and RLQ) Other: Wound vac in place Objective Last Vital Signs Temp 36.5 C 11/05/20 23:21 Pulse 99 H 11/05/20 23:21 Resp 19 11/05/20 23:21 BP 150/81 H 11/05/20 23:21 Pulse Ox 93 11/05/20 23:21 Laboratory Results - last 24 hr 11/05/20 11/05/20 07:51 07:51 WBC 7.27 RBC 4.30 Hgb 12.8 Hct 38.1 MCV 88.6 MCH 29.8 MCHC 33.6 RDW 14.9 H Plt Count 201 MPV 12.7 H Immature Gran % 1.8 Neutrophils % 66.3 Lymphocytes % 15.8 Monocytes % 13.1 Eosinophils % 2.3 Basophils % 0.7 Nucleated RBC % 0 Absolute Neutrophils 4.82 Absolute Lymphocytes 1.15 L Absolute Monocytes 0.95 H Absolute Eosinophils 0.17 Absolute Basophils 0.05 Sodium 143 Potassium 3.2 L Chloride 107 Carbon Dioxide 30.1 Anion Gap 5.9 BUN 18 D Creatinine 0.7 Estimated GFR/1.73 m2 >= 60.00 Glucose 107 H Calcium 8.3 L Total Bilirubin 0.3 AST 15 ALT 18 Alkaline Phosphatase 64 Total Protein 6.1 L Albumin 2.2 L
--- NOTE | 2020-11-06 10:39 | CMPROGNOTE_ITS ---
Care Management Progress Note S/O: Kelsea will be brought to down and back appointment at [facility] for IR drainage of abscess. CM spoke with [facility] to place referral on hold until discharge plans are more clear. [facility] reports surgeon will need to provide verbal orders to pharmacist [phone] for flushes, if needed. CM continues to follow. A: 80 year old female admitted to [facility] 10/30/20 for acute appendicitis P: Kelsea continues to be closely monitored and treated post operatively. She has CAROL drain and wound vac; awaiting arrival of home wound vac, coordination of Home IV ABX through [facility] and [facility] completed; though it may change and is currently on hold. Kelsea will have new orders for [facility] RN for support of drains, dressing changes/wound vac/IV ABX through [place]. She will transport via private vehicle with family. CM continues to follow.
--- NOTE | 2020-11-06 10:39 | PDOC.CMPRO ---
Care Management Progress Note S/O: Kelsea will be brought to down and back appointment at [facility] for IR drainage of abscess. CM spoke with [facility] to place referral on hold until discharge plans are more clear. [facility] reports surgeon will need to provide verbal orders to pharmacist [phone] for flushes, if needed. CM continues to follow. A: 80 year old female admitted to [facility] 10/30/20 for acute appendicitis P: Kelsea continues to be closely monitored and treated post operatively. She has CAROL drain and wound vac; awaiting arrival of home wound vac, coordination of Home IV ABX through [facility] and [facility] completed; though it may change and is currently on hold. Kelsea will have new orders for VNA RN for support of drains, dressing changes/wound vac/IV ABX through [facility]. She will transport via private vehicle with family. CM continues to follow.
[2020-11-06] MEDS: Ketorolac 15 MG/ML VIAL IVP (10:51)
[2020-11-06 17:33] VITALS: BP 148/68; PULSE 82; RESP 17; TEMP 37.6; O2SAT 94
[2020-11-06 18:03] VITALS: BP 165/74; PULSE 100; RESP 18; TEMP 37.5; O2SAT 96
[2020-11-06] MEDS: Enoxaparin 40 MG/0.4 ML SYR SC (18:11)
[2020-11-06] MEDS: Lactobacillus Acidophilus CAP 1 CAP PO (18:12)
[2020-11-06] MEDS: Calcium 600mg/Vit D 200U TAB 1 TAB PO (18:12)
[2020-11-06] MEDS: Ascorbic Acid 500 MG TAB 1000 MG PO (18:12)
[2020-11-06] MEDS: Cholecalciferol (Vitamin D3) 1,000 UNIT TAB 5000 UNITS PO (18:12)
[2020-11-06] MEDS: Multivitamin TAB 1 TAB PO (18:13)
[2020-11-06] MEDS: amLODIPine 2.5 MG TAB PO (18:13)
[2020-11-06] MEDS: Acetaminophen 325 MG TAB 650 MG PO (18:58)
[2020-11-06 20:01] VITALS: BP 114/56; PULSE 104; RESP 18; TEMP 38; O2SAT 94
[2020-11-06] MEDS: Normal Saline Flush 10 ML SYR IVP (20:05)
[2020-11-06] MEDS: Protein Nutritional Supplement 16 GM 1 OUNCE PACKET PO (20:05)
[2020-11-06] MEDS: Psyllium PKT 1 EACH PO (20:05)
[2020-11-07] MEDS: Ketorolac 15 MG/ML VIAL IVP (00:31)
[2020-11-07] MEDS: metroNIDAZOLE 500 MG/100 ML BAG 100 MG IVPB ×3 (01:53→18:50)
[2020-11-07 03:27] VITALS: BP 158/68; PULSE 90; RESP 17; TEMP 36.5; O2SAT 96
[2020-11-07] MEDS: CIPROFLOXACIN 400 MG/200 ML BAG 200 MG IVPB ×2 (05:54→17:22)
[2020-11-07 07:31] VITALS: BP 156/71; PULSE 89; RESP 18; TEMP 37.2; O2SAT 92
[2020-11-07] MEDS: Lactated Ringers 1,000 ML 80 ML IV (07:34)
[2020-11-07] MEDS: Protein Nutritional Supplement 16 GM 1 OUNCE PACKET PO ×3 (08:40→19:24)
[2020-11-07] MEDS: Cholecalciferol (Vitamin D3) 1,000 UNIT TAB 5000 UNITS PO (08:40)
[2020-11-07] MEDS: Psyllium PKT 1 EACH PO ×2 (08:40→19:24)
[2020-11-07] MEDS: Ascorbic Acid 500 MG TAB 1000 MG PO (08:40)
[2020-11-07] MEDS: amLODIPine 2.5 MG TAB PO (08:41)
[2020-11-07] MEDS: Calcium 600mg/Vit D 200U TAB 1 TAB PO (08:41)
[2020-11-07] MEDS: Multivitamin TAB 1 TAB PO (08:41)
[2020-11-07] MEDS: Lactobacillus Acidophilus CAP 1 CAP PO (08:41)
--- NOTE | 2020-11-07 11:34 | CHAPLAIN ---
Jessica was sitting up in her chair when I visited and told me that her trip [place] [facility] [place] was [place]. [facility] took her down and she said the crew was wonderful. She hopes to go home tomorrow, once she is on oral antibiotics. Jessica was telling me about the flower arrangements in her room and explained that her daughter, who was murdered, loved calloway, especially sunflowers, so Jessica keeps two vases of fresh calloway on her mantel at home, all the time. Jessica is a member of [employer] and her account clerk, Rev. Beena Lilly has been in touch with her.
--- NOTE | 2020-11-07 14:37 | PDOC.CMPRO ---
- If Service Date Differs Date of service: 11/07/20 Time of Service: 16:31 Care Management Progress Note S/O: Kelsea remains pleasant in interaction; awaiting updates from surgical team on discharge plan. Kelsea was lying in bed, reports anticipating she will return home on oral antibiotics and VNA RN support for wound care. CM continues to follow. A: 80 year old female admitted to [facility] 10/30/20 for acute appendicitis P: Kelsea continues to be closely monitored and treated post operatively. She has CAROL drain and wound vac; awaiting arrival of home wound vac, coordination of Home IV ABX through [facility] completed; though it may change and is currently on hold. Klesea will have new orders for VNA RN for support of drains, dressing changes/wound vac through [facility]. She will transport via private vehicle with family. CM continues to follow.
[2020-11-07] MEDS: Enoxaparin 40 MG/0.4 ML SYR SC (15:50)
[2020-11-07 16:42] VITALS: BP 149/74; PULSE 97; RESP 18; TEMP 36.5; O2SAT 94
--- NOTE | 2020-11-07 16:53 | W.PM.PROGNOT ---
Date of Service Date of service: 11/07/20 Time of Service: 16:53 Assessment and Plan Assessment and plan (1) Ruptured suppurative appendicitis: Status: Acute Assessment and plan: Postoperative day #8 status post open appendectomy for grossly feculent perforated appendicitis Drain placed [place] [facility] [place]. 30cc of purulent fluid drained. Home VAC has been delivered. --Cipro and flagyl -Continued Diarrhea, Added metamucil BID -Probiotic -Protein supplementation added today to assist with hypoalbuminemia and encourage wound healing -Continue PT/OT as tolerated, encourage ambulation and incentive spirometer use -Wound vac changes M,W,F --anticipate discharge home tomorrow with home health Subjective Subjective Patient reports: no new complaints, feels better, tolerating a regular diet and bowel movement; denies nausea and vomiting Interval history since last seen: The patient is feeling well. She is having some discomfort at wound VAC site. She is tolerating a regular diet, and has been drinking supplemental Ensure. She is ambulating out of bed. Exam Const General: cooperative, healthy appearing, comfortable and no acute distress Nutritional Appearance: average body habitus Orientation: alert, awake and oriented x3 Resp Effort & Inspection: normal respiratory effort and able to speak in complete sentences Auscultation: clear to auscultation bilaterally GI Palpation: soft, not firm and tender (appropriate hubert-incisional tenderness) Rectal Exam - female: other Other: VAC in place. Gluteal drain in place with serosanguinous dressing. Neuro General: patient alert, patient awake and patient oriented x3 Cognition: normal cognition Speech: speech normal Psych Appearance: grossly normal Mental Status: mental status grossly normal Speech and Movement: speech and movement normal Mood: congruent mood Affect: normal affect Attitude: cooperative Thought Process: normal Thought Content: normal Insight: insight good Judgment: judgment good Objective Last Vital Signs Temp 99.0 F 11/07/20 07:31 Pulse 89 11/07/20 07:31 Resp 18 11/07/20 07:31 BP 156/71 H 11/07/20 07:31 Pulse Ox 92 11/07/20 07:31
[2020-11-08] MEDS: Ketorolac 15 MG/ML VIAL IVP (00:18)
[2020-11-08] MEDS: metroNIDAZOLE 500 MG/100 ML BAG 100 MG IVPB ×2 (01:18→10:15)
[2020-11-08] MEDS: Lactated Ringers 1,000 ML 80 ML IV (03:15)
[2020-11-08] MEDS: CIPROFLOXACIN 400 MG/200 ML BAG 200 MG IVPB (05:46)
[2020-11-08 07:18] VITALS: BP 138/73; PULSE 85; RESP 18; TEMP 36.3; O2SAT 94
[2020-11-08] MEDS: Protein Nutritional Supplement 16 GM 1 OUNCE PACKET PO (07:43)
[2020-11-08] MEDS: Acetaminophen 325 MG TAB 650 MG PO (07:43)
[2020-11-08] MEDS: Calcium 600mg/Vit D 200U TAB 1 TAB PO (07:43)
[2020-11-08] MEDS: amLODIPine 2.5 MG TAB PO (07:43)
[2020-11-08] MEDS: Lactobacillus Acidophilus CAP 1 CAP PO (07:43)
[2020-11-08] MEDS: Multivitamin TAB 1 TAB PO (07:43)
[2020-11-08] MEDS: Psyllium PKT 1 EACH PO (07:43)
[2020-11-08] MEDS: Ascorbic Acid 500 MG TAB 1000 MG PO (07:43)
[2020-11-08] MEDS: Cholecalciferol (Vitamin D3) 1,000 UNIT TAB 5000 UNITS PO (07:44)
--- NOTE | 2020-11-08 07:47 | PDOC.CMDIS ---
- If Service Date Differs Date of service: 11/08/20 Time of Service: 07:47 LACE Index Scoring Tool - Questions: Length of Stay (in days): 7 - 13 Acuity (Admit via E.D.?): Yes E.D. Visits: 1 - Answers: Total Score: 9 Risk of Readmission: Low Risk Care Management Discharge Reason for Hospitalization: Acute appendicitis Discharge Plan: Kelsea will return home with new orders for VNA RN for support of drains, dressing changes/wound vac through [employer] [facility]. She will transport via private vehicle with family. Patient/Family Education Needs: Review discharge instructions, discuss Ask Me Three.
--- NOTE | 2020-11-08 08:54 | DSE_ITS ---
Date of service: 11/08/20 Time of Service: 08:54 DS: Diagnosis Discharge Diagnosis (1) Ruptured suppurative appendicitis: Status: Acute (2) Pelvic abscess: Status: Acute Discharge Plan Disposition Patient Disposition: HOME Condition: Stable Discharge Details Reason For Visit: Acute Appendicitis Admit Date/Time: 10/30/20 06:14 Admit Provider: Maryam Velasquez Attending Provider: Maryam Velasquez Primary Care Provider: Isatu Soni Hospital Course Hospital Course: Mrs Garcia is a 80-year-old female who was admitted on October 30 with ruptured appendicitis. She underwent an open appendectomy. Postoperatively she did well up until postop day #4 when she developed increasing right lower quadrant pain and back pain. She was also having some low-grade fevers. A CT scan was done which showed a more than 2.5 cm abscess in the pelvis. The patient went down to [facility] and had a transgluteal drain placed. They removed about 30 cc of purulent discharge. The next day the patient felt well. Her fever subsided. Her white count continue to be normal. The output from the drain was serous. Unfortunately 2 days later the drain was accidentally pulled as the patient was mobilizing from the bed onto the commode. The patient's cultures showed multiple anaerobic bacteria as well as an anaerobic bacteria. Sensitivities showed that this could be treated with Cipro and Flagyl. Patient will be sent home on Cipro and Flagyl for a few more days. She also has a wound VAC and will be going home with that. She will have home health to change the wound VAC 3 times a week. We will see her back in the office next week. Home Meds and New Rx's Prescriptions: New ciprofloxacin HCl [Cipro] 500 mg tablet 500 mg PO BID Qty: 10 RF: 0 metronidazole [Flagyl] 500 mg tablet 500 mg PO TID Qty: 15 RF: 0 Continued cholecalciferol (vitamin D3) 125 mcg (5,000 unit) capsule 125 mcg PO DAILY RF: 0 Prolia 60 mg/mL syringe 60 mg SC [id number] RF: 0 docusate sodium [Colace] 100 mg capsule 100 mg PO DAILY RF: 0 hydrocortisone 2.5 % cream with perineal applicator 1 applic ND TID PRN (Reason: hemorrhoids) Qty: 30 RF: 2 multivitamin [Daily Multi-Vitamin] 1 EACH tablet 1 ea PO DAILY RF: 0 amlodipine 2.5 mg tablet 2.5 mg PO DAILY Qty: 90 RF: 3 acetaminophen 500 mg tablet 1,000 mg PO TID PRN (Reason: fever) Qty: 90 RF: 0 ascorbate calcium (vitamin C) 500 mg Tablet 1,000 mg PO DAILY RF: 0 naproxen sodium [Aleve] 220 mg Tablet 440 mg PO DAILY RF: 0 calcium carbonate-vitamin D3 [Calcium 500 + D] 500 mg(1,250mg) -200 unit Tablet 1 tab PO DAILY RF: 0 Discharge Instructions Additional Instructions: Activity at Home after surgery: 1. Make sure you walk outside at least 4 times per day 2. You should be able to climb a flight of stairs 3. No driving while in pain or taking pain medications 4. No strenuous activity or heavy lifting for 4 weeks (open surgery) Diet, Nutrition, & wound healin. Avoid alcohol until after you are recovered from your surgery 2. Make sure to eat plenty of lean protein (meat, fish, eggs, cottage cheese, beans) 3. Eat a variety of fruits and vegetables. Eat plenty of high fiber foods to avoid constipation. 4. Drink plenty of liquids to stay hydrated and avoid constipation Pain Medications: 1. Tylenol 650mg every 6 hours as needed and Ibuprofen 600 mg every 6 hours as needed. You may alternate between the 2 medications every 3 hours 2. If a narcotic has been prescribed take as directed only for breakthrough pain For Constipation: 1. Take Milk of Magnesia or MiraLax as needed for constipation Other: 1. You may shower daily. Do not scrub the incisions 2. Do not soak the incisions for 1 week 3. You may alternate ice and heat as needed for pain and swelling Wound Care: 1. Keep the incisions clean and dry Other Services that may have been ordered: 0 Home Health- to help with dressing changes Please call our office if you develop: 1. Fevers >101.5 2. Nausea or Vomiting 3. Worsening pain 4. Redness and thick discharge from the wounds If after hours please call the Hospital at and ask to speak to the on-call surgeon Referrals: Sherry Qiu PA [[employer]IST[employer] SECRETARY] - 11/14/20 11:30 am Activity:: Activity as Tolerated Equipment/Supplies:: wound vac Diet:: As Tolerated DS: Summary Time Spent with Patient providing and/or coordinating discharge services: Greater than 30 minutes Status at Discharge Functional status at discharge: independent ambulation Overall status at discharge: patient is back to baseline Mental Status: mental status grossly normal Speech and Movement: speech and movement normal Mood: congruent mood Affect: normal affect Exam Resp Effort & Inspection: normal respiratory effort Auscultation: clear to auscultation bilaterally Cardio Rate: regular rate Rhythm: regular rhythm GI Inspection: other (wound is c/d/i. Wound vac changed) Palpation: soft and nontender Psych Mental Status: mental status grossly normal Speech and Movement: speech and movement normal Mood: congruent mood Affect: normal affect DS: Data Vitals/I&O Vitals and I&O: Vital Signs Temperature 97.3 F L 11/08/20 07:18 Temperature Source Tympanic 11/08/20 07:18 Pulse 85 11/08/20 07:18 Pulse Rhythm Regular 11/07/20 23:25 Respiratory Rate 18 11/08/20 07:18 Respiratory Effort Non-Labored 11/07/20 23:25 Respiratory Depth Normal 11/07/20 23:25 Respiratory Pattern Normal 11/07/20 23:25 Blood Pressure 138/73 11/08/20 07:18 Pulse Oximetry 94 11/08/20 07:18 Respiratory End-tidal CO2 20 10/30/20 15:10 Oxygen Delivery Method Room Air 11/08/20 07:18 Oxygen Flow Rate 0 11/08/20 07:18 Pain Level 6 11/08/20 07:43 Comment 11/05/20 23:21 Intake & Output 11/07/20 11/07/20 11/08/20 11:59 23:59 11:59 Intake Total 1320 / 2840 1520 / 2840 Output Total 1420 / 1920 500 / 1920 Balance -100 / 920 1020 / 920 Intake: IV 1310 / 2710 1400 / 2710 Oral 120 / 120 Injectate 10 / 10 Mid Abdomen 5 / 5 Right Sacrum 5 / 5 Output: Drainage 20 / 20 Mid Abdomen 10 / 10 Right Sacrum 10 / 10 Urine 1400 / 1900 500 / 1900 Other: Urine Color Yellow Yellow Yellow Urine Appearance Clear Clear Clear Urine Odor None Normal Comment mixed with stool Stool Size Small Moderate Moderate Stool Characteristics Soft Soft Soft Liquid Liquid Brown Voiding Methods Toilet Bedside Commode Bedside Commode Data Completed and Pending Labs on day of discharge: Preliminary micro results at discharge 11/04/20 19:25 Blood Culture - Preliminary Blood NO GROWTH 72 HOURS 11/04/20 19:25 Blood Culture - Preliminary Blood NO GROWTH 72 HOURS [facility] Medical History Abnormal colonoscopy 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 states she had f/u with cardiology but has been since d/c from care, and stated she didn't need to follow up with sc unless symptoms came back Chest pain at rest (08/20/16) Thought to be related to adverse reaction to Fosamax (esophagitis?) Pt. denies having any chest pain at rest, last time was 2+ years ago Essential hypertension Hx of fracture of right hip Hyperlipidemia, unspecified 02/2017 labwork: 10-year ASCVD ~25.1% --> pt declines statins Lung nodule RUL noted incidentally 03/17/[address] carried out during workup for rectal polyp --> 04/04/19 [facility] Thoracic Surgery consult and PET scan showing non-FDG avid lesion most c/w scar tissue --> plan for 3 vs. 6 mo f/u chest CT Pt. states onocology has dc'd her from care, unless new symtoms arise. 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 Essential hypertension Migraines Neoplasm Breast Father , Leukemia at age 50. TB (tuberculosis) Neoplasm Leukemia Brother Essential hypertension Heart disease Social History Smoking/Tobacco Use Status: Former Tobacco Use Quit Date: 04/19/84 Smoking risk assessment performed?: Yes Alcohol Intake: current Alcohol Intake frequency: 0-2 drinks per day Alcohol type: wine Drug use: Rarely Substance use type: marijuana Details: Patient states had brownie about three months. Alcohol: t-3, 5 ounces wine Adopted: No Caregiver/Support person: No Foster care: No Household members: spouse Number of Children: 1 Current gender identity: female What type of physical activity do you participate in: regular exercise Duration: 45-60 minutes/day Frequency: daily Seatbelt use: always Water heater temp set <120 deg: Yes Working smoke detector in home: Yes Fire extinguisher in home: Yes Carbon monox detector in home: Yes Firearms in home: Yes Firearms unloaded and locked: No Do you feel safe at home: Yes Do you feel safe in your relationship?: Yes Additional Social history: Patient reports is very active and takes walks every day.
--- NOTE | 2020-11-08 09:14 | PGE_ITS ---
Documented by User: DEIDRA Brumfield 11/08/20 09:22 Date of Service Date of service: 11/08/20 Time of Service: 09:14 Assessment and Plan Assessment and plan (1) Ruptured suppurative appendicitis: Status: Acute Assessment and plan: Postoperative day #9 status post open appendectomy for grossly feculent perforated appendicitis Drain removed last night. Site looks okay. Wound covered. Home VAC has been delivered. Wound vac changed this --Cipro and flagyl -Continued Diarrhea, Added metamucil BID -Probiotic -Protein supplementation -Continue PT/OT as tolerated, encourage ambulation and incentive spirometer use -Wound vac changes M,W,F Subjective Subjective Interval history since last seen: Patient is feeling well. She expressed some concern that her drain was accidentally pulled out last night. She continues to have some pain in LLQ around her abdominal wound. Denies any fevers or chills. Diarrhea continues, which she states starts up during her antibiotic infusions. Exam Const General: cooperative, healthy appearing and comfortable Resp Effort & Inspection: normal respiratory effort, no audible wheezes and no cough GI Palpation: soft, no guarding and tender (mild around wound vac site) Other: Right buttock- Drain site. Minimal bloody drainage. Removed remaining suture. Dressed the area with 4x4 and tape. Skin Other: 5.5 cm 2.5 cm x 1.5 cm Objective Last Vital Signs Temp 36.3 C L 11/08/20 07:18 Pulse 85 11/08/20 07:18 Resp 18 11/08/20 07:18 BP 138/73 11/08/20 07:18 Pulse Ox 94 11/08/20 07:18 Documented by User: Garrett Avila MD 04/29/22 12:52 Assessment and Plan Assessment and plan (1) Ruptured suppurative appendicitis: Status: Acute Assessment and plan: Postoperative day #8 status post open appendectomy for grossly feculent perforat ed appendicitis Drain placed by [facility] yesterday. 30cc of purulent fluid drained. Home VAC has been delivered. --Cipro and flagyl -Continued Diarrhea, Added metamucil BID -Probiotic -Protein supplementation added today to assist with hypoalbuminemia and encourage wound healing -Continue PT/OT as tolerated, encourage ambulation and incentive spirometer use -Wound vac changes M,W,F --anticipate discharge home tomorrow with home health Subjective Subjective Patient reports: no new complaints, feels better, tolerating a regular diet and bowel movement; denies nausea or vomiting Interval history since last seen: The patient is feeling well. She is having some discomfort at wound VAC site. She is tolerating a regular diet, and has been drinking supplemental Ensure. She is ambulating out of bed. Exam Const General: cooperative, healthy appearing, comfortable and no acute distress Nutritional Appearance: average body habitus Orientation: alert, awake and oriented x3 Resp Effort & Inspection: normal respiratory effort and able to speak in complete sentences Auscultation: clear to auscultation bilaterally GI Palpation: soft, not firm and tender (appropriate hubert-incisional tenderness) Rectal Exam - female: other Neuro General: patient alert, patient awake and patient oriented x3 Cognition: normal cognition Speech: speech normal Psych Appearance: grossly normal Mental Status: mental status grossly normal Speech and Movement: speech and movement normal Mood: congruent mood Affect: normal affect Attitude: cooperative Thought Process: normal Thought Content: normal Insight: insight good Judgment: judgment good
--- NOTE | 2020-11-08 10:35 | PDOC.HHF2F ---
Home Health Certification Home Health Certification: 1. Encounter Date and Reason I certify that Kelsea Garcia was seen by Lois Mckeon MD on 11/08/20 and that I had a [id number] encounter with this patient that meets the physician face to face encounter requirements. 2. Clinical Findings Supporting Skilled Need and Homebound Status I certify that home health services are medically necessary, include either intermittent mcc and/or physical/speech therapy, and that this patient is homebound in that absences from the home require considerable and taxing effort and are infrequent or of short duration, or are attributable to the need to receive medical care. [X] (a) Attached documentation from encounter provides clinical findings supporting skilled need and homebound status (including what assistance patient requires to leave the home). The encounter with the patient was in whole, or in part, for the following medical condition, which is the primary reason for home health care: Acute Appendicitis Long-Term: detention needed to monitor patient's medical condition, instructed on medication regimen and signs and symptoms to report. Patient is at risk for of decompensation and/or adverse events due to recent hospitalization. detention needed to monitor wound for signs and symptoms of infection, provide wound care and or training of patient and caregivers Physical Therapy: Speech Therapy: Homebound: Patient is unable to leave home without assistance and ambulation is severely limited due to pain, decreased strength and endurance 3. Certification and Authentication I certify that I composed the above information based on my clinical judgement relating to this patient's medical condition and, if applicable, clinical findings communicated to me by the NPP or inpatient physician who performed the Home Health Referral. All further orders will be obtained through Eva Stone (Community Based Physician - PCP)
== END 2020-11-08 11:50 | disposition home or self-care (01) | DRG 340 ==
LOC: ER 06:34 → MS 07:05
PROVIDERS: Surgery; Admitting Provider Surgery; Emergency Provider Emergency Medicine; PCP Nurse Practitioner; Visit Provider Surgery
PROC: 0DTJ4ZZ Resection of Appendix, Percutaneous Endoscopic Approach (ICD-10-PCS; CPT 44970; principal; 2020-10-30 10:15)
DX: K35.33 Acute appendicitis with perforation, localized peritonitis, and gangrene, with abscess (principal); M81.0 Age-related osteoporosis without current pathological fracture; Z53.31 Laparoscopic surgical procedure converted to open procedure; I10 Essential (primary) hypertension; E78.5 Hyperlipidemia, unspecified; M77.42 Metatarsalgia, left foot; M77.41 Metatarsalgia, right foot; H81.8X9 Other disorders of vestibular function, unspecified ear; E87.6 Hypokalemia; E86.0 Dehydration; R19.7 Diarrhea, unspecified
CPT/HCPCS: 44960; 36410; 36415; 80048; 80053; 87040; 87077; 87493; 87635; 96365; 96375; 96376; 99221; 99285; J1650; 49406; 74176; 74177; 81003; 81015; 82040; 83735; 85025; 85049; 86140; 87070; 87075; 87086; 87186; 87205; 88304; 99284; A0425; A0428; A0429; J0131; J0744; J1100; J1335; J1885; J2001; J2405; J2543; J2704; J3010; J3480; J3490

== ENCOUNTER 2020-11-12 01:06 | Emergency (ER) | payer MEDICARE, OTHER, SELFPAY ==
[2020-11-12] VITALS (24 sets, daily range): BP systolic 134–167; BP diastolic 47–81; PULSE 79–101; RESP 16–28; TEMP 36.7; O2SAT 95–98
--- NOTE | 2020-11-12 01:25 | W.ED.GENAD ---
Discharge Plan Disposition Patient Disposition: HOME Condition: Improving Discharge Details Clinical Impression: Thoracic back pain Primary Care Provider: Isatu Soni ED Provider: Rocael Pagan Meds and New Rx's Prescriptions: Continued cholecalciferol (vitamin D3) 125 mcg (5,000 unit) capsule 125 mcg PO DAILY RF: 0 Prolia 60 mg/mL syringe 60 mg SC [id number] RF: 0 docusate sodium [Colace] 100 mg capsule 100 mg PO DAILY RF: 0 hydrocortisone 2.5 % cream with perineal applicator 1 applic AL TID PRN (Reason: hemorrhoids) Qty: 30 RF: 2 multivitamin [Daily Multi-Vitamin] 1 EACH tablet 1 ea PO DAILY RF: 0 amlodipine 2.5 mg tablet 2.5 mg PO DAILY Qty: 90 RF: 3 acetaminophen 500 mg tablet 1,000 mg PO TID PRN (Reason: fever) Qty: 90 RF: 0 linezolid 600 mg tablet 600 mg PO Q12H 14 Days Qty: 28 RF: 0 ascorbate calcium (vitamin C) 500 mg Tablet 1,000 mg PO DAILY RF: 0 naproxen sodium [Aleve] 220 mg Tablet 440 mg PO DAILY RF: 0 calcium carbonate-vitamin D3 [Calcium 500 + D] 500 mg(1,250mg) -200 unit Tablet 1 tab PO DAILY RF: 0 ciprofloxacin HCl [Cipro] 500 mg tablet 500 mg PO BID Qty: 10 RF: 0 metronidazole [Flagyl] 500 mg tablet 500 mg PO TID Qty: 15 RF: 0 Discharge Instructions Additional Instructions: At this point no clear etiology for your pain but there does not appear to be anything cardiac, pulmonary, renal related. Restart your Aleve for anti-inflammatory effect. Continue the Tylenol as before. Continue your other medications including your antibiotics. Follow-up with surgery as scheduled. If she agrees this pain is not related to surgical issue but it continues to bother you follow-up with primary care. Return to the emergency department if you develop fever, shortness of breath, new or worsening pain, other concerns. Referrals: Lois Mckeon MD [ [facility] STAFF PHYSICIAN] - Isatu Soni [Primary Care Provider] - Medical Decision Making Patient presents to ED with left lower rib pain which is pleuritic in nature. She had a recent admission to the hospital for ruptured appendix. She is just been discharged 3 days ago. She has been doing well with no fever, cough, shortness of breath, leg pain, new abdominal symptoms. She did wear SCDs while in the hospital. Still given her prolonged hospital stay and recent surgery must consider PE. Unlikely to be related to the prior surgery but will continue to scan down into the abdomen pelvis given her pelvic abscess during hospital stay. Laboratory studies sent. Patient otherwise stable hemodynamically with good saturation. Patient laboratory studies showed normal white count and normal hemoglobin. Chemistries and kidney function normal. Liver function fine. Urine is negative. Ketorolac did not really help with her pain. She received a couple of doses of IV fentanyl while waiting for CTA results to return. CTA shows no PE or dissection. Small bilateral pleural effusions. No hydronephrosis or abnormal kidney findings. Pelvic fluid collection smaller than previous but still present. This, however, is nowhere near where patient is having her pain. Patient now also complaining of pain up into his left arm. EKG obtained and shows no ST changes and is unchanged from previous. She is more comfortable after second dose of fentanyl. We added a troponin onto her labs and will do a second troponin and monitor her condition in pain level. Patient much more comfortable now. Occasional twinges of pain but nothing like before. Second troponin is negative. At this point no clear etiology for her pain unless it is musculoskeletal or pleurisy related. There is no PE, pneumonia, pneumothorax, dissection. Does not appear to be cardiac. No evidence of UTI or kidney stone. Patient typically takes Aleve but has not been taking it as of recent. We will have her restart that for antiinflammatory component. We will have her continue Tylenol as well. She does not want anything stronger at this point. She has follow-up with surgery, Dr. Mckeon on . I am not convinced that this is related to her surgery. If after that evaluation Dr. Mckeon agrees and patient still having problems she can follow-up with primary care. Return to ED for new or worsening pain, shortness of breath, fever, other concerns. Medical Records Medical records reviewed: Yes I reviewed the patient's medical records. Lab Data Lab results reviewed: Yes I reviewed the patient's lab results. HPI General Mode of arrival: wheelchair. Date/Time Provider Initiated Documentation: 11/12/20 01:08. Limitations to Documentation: no limitations. Information obtained by: patient, RN notes reviewed and old records reviewed. HPI Narrative: Patient presents to ED with left lower thoracic/upper lumbar area. Pain started tonight. No associated trauma. Patient recently discharged from the hospital after an admission on the for ruptured appendix. She has a wound VAC in place on the right. She had a pelvic abscess which was drained by interventional radiology at [facility]. She was discharged from this hospital 3 days ago and doing relatively well at home. Tonight sudden onset of this left flank pain. Pain is worse with breathing. She does not feel short of breath. She denies leg pain or leg swelling. She denies any urinary symptoms. She had denies any abdominal pain, vomiting. Related Data Home Medications Medication Instructions Recorded Confirmed multivitamin [Daily Multi-Vitamin] 1 ea PO DAILY 08/28/16 11/12/20 amlodipine 2.5 mg tablet 2.5 mg PO DAILY #90 tab-cap 02/24/18 11/12/20 docusate sodium 100 mg capsule 100 mg PO DAILY 06/29/19 11/12/20 hydrocortisone 2.5 % topical cream 1 applic AL TID PRN #30 gm 07/05/19 11/12/20 with perineal applicator acetaminophen 500 mg tablet 1,000 mg PO TID PRN #90 tab 07/24/19 11/12/20 ascorbate calcium (vitamin C) 1,000 mg PO DAILY 10/12/19 11/12/20 calcium carbonate-vitamin D3 1 tab PO DAILY 10/12/19 11/12/20 [Calcium 500 + D] cholecalciferol (vitamin D3) 125 125 mcg PO DAILY 10/12/19 11/12/20 mcg (5,000 unit) capsule naproxen sodium [Aleve] 440 mg PO DAILY 10/12/19 11/12/20 denosumab 60 mg/mL subcutaneous 60 mg SC [id number] 12/11/19 11/12/20 syringe ciprofloxacin HCl [Cipro] 500 mg PO BID #10 tab 11/08/20 11/12/20 linezolid 600 mg tablet 600 mg PO Q12H 14 Days #28 tab 11/08/20 11/12/20 metronidazole [Flagyl] 500 mg PO TID #15 tab 11/08/20 11/12/20 Previous Rx's Medication Instructions Recorded amlodipine 2.5 mg tablet 2.5 mg PO DAILY #90 tab-cap 02/24/18 hydrocortisone 2.5 % topical cream 1 applic AL TID PRN #30 gm 07/05/19 with perineal applicator acetaminophen 500 mg tablet 1,000 mg PO TID PRN #90 tab 07/24/19 ciprofloxacin HCl [Cipro] 500 mg PO BID #10 tab 11/08/20 linezolid 600 mg tablet 600 mg PO Q12H 14 Days #28 tab 11/08/20 metronidazole [Flagyl] 500 mg PO TID #15 tab 11/08/20 Allergies Allergy/AdvReac Type Severity Reaction Status Date / Time morphine Allergy Severe throat Unverified 11/12/20 01:13 closed up alendronate sodium Allergy Intermediate chest pain Unverified 11/12/20 01:13 [From Fosamax] celecoxib [From Celebrex] AdvReac Severe Diarrhea Unverified 11/12/20 01:13 propranolol HCl AdvReac Intermediate depression Unverified 11/12/20 01:13 [From Inderal LA] tramadol HCl [From Ultram] AdvReac Intermediate Got High Unverified 11/12/20 01:13 General Stated Complaint: FlankPain SHELLY: 3 Review of Systems Narrative: 01/30 Review of Systems completed and is negative except as stated above in HPI (Systems reviewed: Const, Eyes, ENT, Resp, CV, GI, , MSK, Skin, Neuro) PFSH Medical History Abnormal colonoscopy Acute pericarditis Pt. states she had f/u with cardiology but has been since d/c from [facility], and stated she didn't need to follow up with mo unless symptoms came back Chest pain at rest (08/20/16) Thought to be related to adverse reaction to Fosamax (esophagitis?) Pt. denies having any chest pain at rest, last time was 2+ years ago Essential hypertension Hx of fracture of right hip Hyperlipidemia, unspecified 02/2017 labwork: 10-year ASCVD ~25.1% --> pt declines statins Lung nodule RUL noted incidentally 03/17/[address] carried out during workup for rectal polyp --> 04/04/19 [facility] Thoracic Surgery consult and PET scan showing non-FDG avid lesion most c/w scar tissue --> plan for 3 vs. 6 mo f/u chest CT Pt. states onocology has dc'd her from care, unless new symtoms arise. 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 Essential hypertension Migraines Neoplasm Breast Father , Leukemia at age 50. TB (tuberculosis) Neoplasm Leukemia Brother Essential hypertension Heart disease Social History Smoking/Tobacco Use Status: Former Tobacco Use Quit Date: 04/19/84 Smoking risk assessment performed?: Yes Alcohol Intake: current Alcohol Intake frequency: 0-2 drinks per day Alcohol type: wine Drug use: Rarely Substance use type: marijuana Details: Patient states had brownie about three months. Alcohol: t-3, 5 ounces wine Adopted: No Caregiver/Support person: No Foster care: No Household members: spouse Number of Children: 1 Current gender identity: female What type of physical activity do you participate in: regular exercise Duration: 45-60 minutes/day Frequency: daily Seatbelt use: always Water heater temp set <120 deg: Yes Working smoke detector in home: Yes Fire extinguisher in home: Yes Carbon monox detector in home: Yes Firearms in home: Yes Firearms unloaded and locked: No Do you feel safe at home: Yes Do you feel safe in your relationship?: Yes Additional Social history: Patient reports is very active and takes walks every day. Exam Narrative Exam Narrative: Const: WDWN female in NAD. HEENT: NC/AT. Normal facial exam. Eyes: Normal conjunctiva and sclera. Neck: Supple. Trachea midline. Lungs: Normal respiratory effort. Lungs are clear. Cor: RRR without murmur/gallop. Good radial pulses. GI: Soft. NT/ND. Wound vac in place. Back: No CVAT Pain without tenderness along the lower posteriorlateral left ribs Neuro: A+O x 3. Normal speech, mentation, gait. Cranial nerves II - XII grossly intact. No gross motor or sensory deficit. Ext: No C/C/E. No calf tenderness. Skin: Warm and dry without rash. Course Vital Signs Vital signs: Vital Signs Temperature 98.1 F 11/12/20 01:10 Pulse 96 H 11/12/20 01:10 Respiratory Rate 18 11/12/20 01:10 Blood Pressure 167/76 H 11/12/20 01:10 Pulse Oximetry 97 11/12/20 01:10 Temperature 98.1 F 11/12/20 01:10 Temperature Source Temporal Artery Scan 11/12/20 01:10 Pulse 96 H 11/12/20 01:10 Respiratory Rate 18 11/12/20 01:10 Respiratory Effort Non-Labored 11/12/20 01:13 Blood Pressure 167/76 H 11/12/20 01:10 Blood Pressure Position Sitting 11/12/20 01:10 Pulse Oximetry 97 11/12/20 01:10 Pain Level 9 11/12/20 01:13
--- NOTE | 2020-11-12 01:30 | DI.CT_ITS ---
Exam(s) CT CHEST PE ABD PELVIS W EXAM: CT CHEST PE ABD PELVIS W CLINICAL HISTORY: left thoracic/flank pain. TECHNIQUE: Imaging Protocol: Axial CT angiography was performed with multi-slice acquisition and mu lti-planar and/or 3D reconstructions. CONTRAST MATERIAL: Intravenous: Omnipaque 350 Contrast volume:100 mL COMPARISON: CT CHEST FOR PE, ABD PELVIS W from 06/18/[address] CHEST/ABD/PEL W from 03/17/[address] RENAL COLIC WO from 10/30/[address] ABDOMEN PELVIS W from 11/03/2020 FINDINGS: CHEST: The examination is limited due to patient motion artifact. Pulmonary Arteries: No evidence of filling defect to suggest pulmonary emboli. Tracheobronchial tree: Patent where visualized. Mediastinum and [place]: No dominant adenopathy or fluid collection. Pulmonary parenchyma: Reticular nodular infiltrate in the right upper lobe. Dependent atelectasis is seen in the lung bases. Scarring or atelectasis is seen in the right middle lobe. No architectural distortion. Pleura: Small bilateral pleural effusions. No pneumothorax. Heart: Mild cardiomegaly. Mild coronary artery calcification. No significant pericardial effusion. Aorta: Thoracic aorta non-dilated. Atherosclerosis. No evidence of dissection. Bones: Age-appropriate degenerative changes in the thoracic spine. ABDOMEN: Liver: Normal density. No measurable mass. Portal, Superior Mesenteric, and Splenic Veins: Unremarkable. Gallbladder and Biliary Tract: No radiodense calculus or dilation. Pancreas: Normal density, no abnormal calcifications or inflammatory process. Spleen: Normal. Adrenals: No masses seen. Kidneys: Normal size, contour and axis. 3 mm nonobstructing stone in the upper pole of the left kidne y. A few scattered tiny hypodensities seen in the kidneys bilaterally. These are too small for furt her characterization, but likely reflect small cysts. Abdominal Aorta: Abdominal portion non-dilated. Tortuosity and atherosclerosis. Bowel: No evidence of bowel obstruction. There are loops of small bowel with mildly thickened mahoney particularly in the right pelvis. The appendix is less prominent compared to the prior examination b ut still measures 1.1 cm in diameter. There is a mildly thickened wall. Sigmoid diverticulosis but no evidence of acute diverticulitis. Peritoneal Cavity: There is a trace amount of fluid in the pelvis. The fluid collection in the right pelvis anterior to the sacrum now measures 4.1 x 2.6 cm. This compares to 5.8 x 3.7 cm. No free ai r. Lymph Nodes: Within normal limits. Bones: Intramedullary rogelio and screw in the right femur. Degenerative changes in the spine. Soft Tissues: There has been interval removal of the percutaneous drain from the right lower quadrant . There is a small fluid collection in the subcutaneous tissues of the right anterior abdomen wall m easuring 1.0 x 2.9 cm. It lies superficial to the right anterior abdominal wall musculature. PELVIS: Bladder: Symmetric distention, no gross wall thickening. Reproductive Organs: Status post hysterectomy. Lymph Nodes: Within normal limits. Bones: Within normal limits. IMPRESSION: 1. No evidence of pulmonary embolism, thoracic aortic dissection or aneurysm. 2. Small bilateral pleural effusions and bilateral basilar atelectasis. 3. Reticular nodule infiltrate in the right upper lobe. Follow-up in 6-12 months is recommended for re-evaluation. 4. Overall there does appear to be improvement in the appearance of the abdomen and pelvis compared t o 11/03/2020. There has been a decrease in size of the right pelvic fluid collection. There has also been slight decrease in size of the appendix. 5. Bowel wall thickening and several small bowel loops in the right lower quadrant likely reflecting enteritis secondary to the adjacent inflammatory process. 6. Interval removal of the percutaneous drain. RADIATION DOSE DELIVERED: 851.81mGy.cm Total DLP DATA REPOSITORY: All CT scans at this facility are submitted to the National Radiology Data Registry (NRDR) Dose Index Registry (DIR) with the [employer] (ACR). RADIATION OPTIMIZATION: All CT scans at this facility use at least one of these dose optimization te chniques: automated exposure control; mA and/or kV adjustment per patient size (includes targeted exa ms where dose is matched to clinical indication); or iterative reconstruction.
[2020-11-12 01:37] LABS: Bilirubin Negative (Negative); Blood Negative (Negative); Clarity Clear (Clear); Glucose Negative (Negative); Ketones Negative (Negative); Leukocyte Esterase Trace (Negative); Nitrite Negative (Negative); Urobilinogen 0.2 EU/dL (Up TO 0.2)
[2020-11-12 01:47] LABS: Bacteria Few HPF (Negative); C & S Indicated? No; Casts Negative LPF (Negative); Crystals Negative HPF (Negative); Epithelial Cells Few HPF (Negative); Mucus Negative (Negative); Other Cells Rare Transitional (Negative); RBC 0-2 HPF (0-2); WBC 0-2 HPF (0-5)
[2020-11-12 02:04] LABS: Abs Immature Grans 0.04 10^3/uL (0.0-0.06); Absolute Basophil Count 0.08 10^3/uL (0.0-0.2); Absolute Lymphocyte Count 1.33 10^3/uL (1.2-3.4); Absolute Monocyte Count 1.23 10^3/uL (0.1-0.8); Absolute Neutrophil Count 7.36 10^3/uL (1.2-6.7); Basophils % 0.8; HCT 36.5 % (36.0-46.0); HGB 11.9 g/dL (11.2-15.7); Immature Grans % 0.4; MCH 29.3 pg (27.0-33.0); MCHC 32.6 % (32.0-36.0); MCV 89.9 fL (80-95); MPV 11.9 fL (8.0-11.0); Neutrophils % 71.8; Nucleated RBC 0 %; Platelet Count 468 10^3/uL (130-400); RBC 4.06 10^6/uL (3.93-5.22); RDW 14.6 % (11.7-14.6); RDW-SD 48.8 fL; WBC 10.24 10^3/uL (4.4-10.8)
[2020-11-12] MEDS: Normal Saline Flush 10 ML SYR IVP (02:05)
[2020-11-12] MEDS: Ketorolac 15 MG/ML VIAL IVP (02:05)
[2020-11-12] MEDS: Omnipaque 350 MG/ML 100 ML BTL IJ (02:46)
[2020-11-12] MEDS: Normal Saline - Diluent 50 ML VIAL IV (02:47)
[2020-11-12 03:24] LABS: ALT 13 U/L (14-59); AST 12 U/L (15-37); Albumin 2.4 g/dL (3.4-5.0); Alkaline Phosphatase 60 U/L (46-116); Anion Gap 10.8 mmol/L (3-11); BUN 11 mg/dL (7-18); Bilirubin, Total 0.3 mg/dL (0.2-1.0); CO2 26.2 mmol/L (21.0-32.0); CREATININE 0.7 mg/dL (0.55-1.02); Calcium 8.1 mg/dL (8.5-10.1); Chloride 103 mmol/L (98-107); Glucose 119 mg/dL (74-106); Magnesium 2.2 mg/dL (1.8-2.4); Potassium 3.6 mmol/L (3.5-5.1); Sodium 140 mmol/L (136-145); Total Protein 6.2 g/dL (6.4-8.2)
[2020-11-12] MEDS: fentaNYL 100 MCG/2 ML VIAL 25 MCG IVP ×2 (03:50→04:08)
--- NOTE | 2020-11-12 04:15 | RT.EKG_ITS ---
APPROVED REPORT Exam: Resting ECG Reason for Exam: Patient Location: E HR:84 bpm ECG Measurements Heart Rate 84 AXIS GA 150 P 40 QRSd 93 QRS 5 QT 392 T 29 QTc 465 Conclusion Sinus rhythm...normal P axis, V-rate 60- 99 Probable left atrial enlargement...P >50mS, <-0.10mV V1 I have reviewed and interpreted ECG and agree with software generated interpretation. There are no significant changes compared to prior EKG performed on 07/11/2019 at 19:16.
--- NOTE | 2020-11-12 04:18 | DI.VRAD_ITS ---
PROCEDURE INFORMATION: Exam: CTA Chest With Contrast Exam date and time: 11/12/2020 1:45 AM Age: 80 years old Clinical indication: Other: Left thoracic flank pain recent surg hospitalization - ruptured append. ; Other: Abd; Prior surgery; Surgery date: 3-7 days post-operative; Surgery type: See above TECHNIQUE: Imaging protocol: Computed tomographic angiography of the chest with contrast. 3D rendering (Not supervised by radiologist): MIP and/or 3D reconstructed images were created by the technologist. Radiation optimization: All CT scans at this facility use at least one of these dose optimization techniques: automated exposure control; mA and/or kV adjustment per patient size (includes targeted exams where dose is matched to clinical indication); or iterative reconstruction. Contrast material: OMNI 350; Contrast volume: 100 ml; Contrast route: INTRAVENOUS (IV); COMPARISON: CT CHEST FOR PE, ABD PELVIS W 06/18/2017 6:30 AM FINDINGS: Pulmonary arteries: Normal. No pulmonary emboli. Aorta: Moderate diffuse atherosclerotic disease is present. Lungs: Bibasilar atelectasis. Cluster of peripheral nodules in the right lower lobe laterally. Unchanged. Pleural spaces: Small bilateral pleural effusions. Heart: Prominent left atrium and ventricle. Lymph nodes: Unremarkable. No enlarged lymph nodes. Bones/joints: Unremarkable. No acute fracture. Soft tissues: Unremarkable. IMPRESSION: 1. Small bilateral pleural effusions and bibasilar atelectasis. 2. Small clustered nodules in the right lung base, unchanged. PROCEDURE INFORMATION: Exam: CT Angiography Abdomen With Contrast Exam date and time: 11/12/2020 1:45 AM Age: 80 years old Clinical indication: Other: Left thoracic flank pain recent surg hospitalization - ruptured append. ; Other: Abd; Prior surgery; Surgery date: 3-7 days post-operative; Surgery type: See above TECHNIQUE: Imaging protocol: Computed tomographic angiography images of the abdomen with intravenous contrast material. 3D rendering (Not supervised by radiologist): MIP and/or 3D reconstructed images were created by the technologist. Radiation optimization: All CT scans at this facility use at least one of these dose optimization techniques: automated exposure control; mA and/or kV adjustment per patient size (includes targeted exams where dose is matched to clinical indication); or iterative reconstruction. Contrast material: OMNI 350; Contrast volume: 100 ml; Contrast route: INTRAVENOUS (IV); COMPARISON: CT CHEST FOR PE, ABD PELVIS W 06/18/2017 6:30 AM FINDINGS: Tubes, catheters and devices: There has been interval removal of a percutaneous drain from the right lower quadrant. Aorta: No aortic aneurysm. No aortic dissection. Celiac trunk and mesenteric arteries: No occlusion or significant stenosis. Renal arteries: No occlusion or significant stenosis. Liver: Normal. No mass. Gallbladder and bile ducts: Gallbladder partially contracted. Pancreas: Normal. No ductal dilation. Spleen: Normal. No splenomegaly. Adrenals: Normal. No mass. Kidneys and ureters: Normal. No hydronephrosis. Stomach and bowel: Sigmoidal diverticulosis without evidence of diverticulitis. Lymph nodes: Unremarkable. No enlarged lymph nodes. Intraperitoneal space: Fluid collection within the right lower pelvis has decreased in size now measuring 4.1 x 2.6 cm. Previously 5.8 x 3.7 cm. Multiple loops of dilated adjacent bowel are present. Have slightly thickened mahoney. The appendix appears less prominent somewhat but remains with a thickened wall. Bones/joints: Status post right hip pinning nail fixation. Soft tissues: Unremarkable. IMPRESSION: 1. Interval improvement distension and inflammation of the appendix. 2. Interval decrease in size of right pelvic fluid collection, suspected to be infected fluid collection. 3. Interval removal of percutaneous pelvic drain. Dictated and Authenticated by: Huma Lane MD. Ordering:GIOVANNY Cote MD
[2020-11-12 04:51] LABS: Troponin I < 0.05 ng/mL (<0.06)
[2020-11-12 06:40] LABS: Troponin I < 0.05 ng/mL (<0.06)
== END 2020-11-12 07:17 | disposition home or self-care (01) ==
PROVIDERS: Emergency Provider Emergency Medicine; PCP Nurse Practitioner
DX: M54.6 Pain in thoracic spine (principal)
CPT/HCPCS: 36415; 71275; 74177; 80053; 93005; 96374; 96375; 99285; 81003; 81015; 83735; 84484; 85025; 93010; J1885; J3010; J3490

== ENCOUNTER → 2020-11-14 11:27 | Outpatient (BNVA) | payer MEDICARE, OTHER, SELFPAY | PROVIDERS: PCP Nurse Practitioner; Referring Provider Nurse Practitioner; Visit Provider Physical Therapy Assistant | DX: Z48.815 Encounter for surgical aftercare following surgery on the digestive system (principal); K35.32 Acute appendicitis with perforation, localized peritonitis, and gangrene, without abscess; N73.8 Other specified female pelvic inflammatory diseases ==

== ENCOUNTER → 2020-11-21 10:56 | Outpatient (BNVA) | payer MEDICARE, OTHER, SELFPAY | PROVIDERS: PCP Nurse Practitioner; Referring Provider Nurse Practitioner; Visit Provider Physical Therapy Assistant | DX: Z48.815 Encounter for surgical aftercare following surgery on the digestive system (principal) ==

== ENCOUNTER → 2020-11-28 13:18 | Outpatient (BNVA) | payer MEDICARE, OTHER, SELFPAY | PROVIDERS: PCP Nurse Practitioner; Referring Provider Nurse Practitioner; Visit Provider Surgery | DX: Z48.815 Encounter for surgical aftercare following surgery on the digestive system (principal); Z90.49 Acquired absence of other specified parts of digestive tract ==

== ENCOUNTER 2020-12-16 04:06 | Outpatient (CLI) | payer MEDICARE, SELFPAY ==
[2020-12-16 14:56] LABS: Anion Gap 8.4 mmol/L (3-11); BUN 18 mg/dL (7-18); CO2 29.6 mmol/L (21.0-32.0); Chloride 105 mmol/L (98-107); Estimated GFR 53.62 (mL/min/1.73m2); Glucose 158 mg/dL (74-106); Potassium 3.9 mmol/L (3.5-5.1); Sodium 143 mmol/L (136-145)
[2020-12-23 04:50] LABS: Vitamin D 25 Total 63.2 ng/mL (30-100)
== END 2020-12-16 04:07 | disposition home or self-care (01) ==
LOC: LBO 04:06
PROVIDERS: PCP Nurse Practitioner; Visit Provider Internal Medicine Rheumatology
DX: M81.0 Age-related osteoporosis without current pathological fracture (principal)
CPT/HCPCS: 36415; 80048; 82306

== ENCOUNTER 2020-12-31 06:45 | Outpatient (RCR) | payer MEDICARE, OTHER, SELFPAY ==
[2020-12-31] MEDS: Denosumab 60 MG/ML SYR SC (10:06)
== END 2021-01-16 23:59 | disposition home or self-care (01) ==
LOC: INF 06:45
PROVIDERS: PCP Nurse Practitioner; Visit Provider Nurse Practitioner Family
DX: M81.0 Age-related osteoporosis without current pathological fracture (principal)
CPT/HCPCS: 96372; J0897

== ENCOUNTER → 2021-01-02 13:26 | Outpatient (BNVA) | payer MEDICARE, SELFPAY | PROVIDERS: PCP Nurse Practitioner; Referring Provider Nurse Practitioner; Visit Provider Surgery | DX: Z48.815 Encounter for surgical aftercare following surgery on the digestive system (principal); L92.8 Other granulomatous disorders of the skin and subcutaneous tissue; L98.9 Disorder of the skin and subcutaneous tissue, unspecified ==

== ENCOUNTER 2021-02-02 18:43 | Emergency (ER) | payer MEDICARE, OTHER, SELFPAY ==
[2021-02-02 18:48] VITALS: BP 199/77; PULSE 90; RESP 16; TEMP 36.9; O2SAT 98
--- NOTE | 2021-02-02 19:00 | ED.GENADUL_ITS ---
Discharge Plan Disposition Patient Disposition: HOME Condition: Stable Discharge Details Clinical Impression: Gastroenteritis, Abdominal pain Primary Care Provider: Isatu Soni ED Provider: Yashira Mae Home Meds and New Rx's Prescriptions: Continued cholecalciferol (vitamin D3) 125 mcg (5,000 unit) capsule 125 mcg PO DAILY RF: 0 Prolia 60 mg/mL syringe 60 mg SC [id number] RF: 0 docusate sodium [Colace] 100 mg capsule 100 mg PO DAILY RF: 0 hydrocortisone 2.5 % cream with perineal applicator 1 applic [place] TID PRN (Reason: hemorrhoids) Qty: 30 RF: 2 multivitamin [Daily Multi-Vitamin] 1 EACH tablet 1 ea PO DAILY RF: 0 amlodipine 2.5 mg tablet 2.5 mg PO DAILY Qty: 90 RF: 3 acetaminophen 500 mg tablet 1,000 mg PO TID PRN (Reason: fever) Qty: 90 RF: 0 ascorbate calcium (vitamin C) 500 mg Tablet 1,000 mg PO DAILY RF: 0 naproxen sodium [Aleve] 220 mg Tablet 440 mg PO DAILY RF: 0 calcium carbonate-vitamin D3 [Calcium 500 + D] 500 mg(1,250mg) -200 unit Tablet 1 tab PO DAILY RF: 0 Discharge Instructions Instructions: Gastroenteritis (ED) Additional Instructions: At that this time there is no evidence for abscess on the CT exam. He did have a mild amount of constipation and some intestinal wall thickening. Follow up with primary care provider in 3-5 days. Return to ED sooner if any worsening or concerns. Increase oral fluids. Please take Tylenol with food every 4-6 hours as needed for pain and swelling. Referrals: Isatu Soni [Primary Care Provider] - 5 days Medical Decision Making 80-year-old female presents to the ER with chief complaint of right lower quadrant abdominal pain. Patient is status post appendectomy in October with a ruptured appendix, small abscess development who was discharged from hospital with a wound VAC the end of October this year. She was recently seen as an outpatient in surgical clinic approximately 3 weeks ago and had a I&D of some agranular tissue. Patient reports she has healed nicely from that. Denies any nausea vomiting diarrhea, fever, no drainage from the incision site, no induration noted on exam. She reports that she noticed some pain upon standing yesterday and has worsened today throughout the day. Last normal bowel movement was just prior to arrival. Denies any dysuria, chest pain shortness of breath or any other associated symptoms. She has a past medical history of acute pericarditis, hypertension, right hip fracture, hyperlipidemia, PMSHX: hysterectomy. Work-up ordered including CBC, CMP, magnesium, urinalysis. CBC shows no leukocytosis white blood cell count of 4.85 hemoglobin hematocrit within normal limits, CMP shows sodium 144, potassium 3.7, chloride 106 BUN 24 creatinine 1.0 GFR 53, glucose 108 urinalysis shows trace ketones, trace blood 3-5 RBCs no leukocytes no nitrates. Culture is not indicated at this time. CT abdomen pelvis with contrast: FINDINGS: Lungs: Lung bases are clear. Diaphragm: Mild hiatal hernia. Liver: Normal. No mass. Gallbladder and bile ducts: Normal. No calcified stones. No ductal dilation. Pancreas: Normal. No ductal dilation. Spleen: Normal. No splenomegaly. Adrenal glands: Normal. No mass. Kidneys and ureters: No definite hydronephrosis. Peripelvic cysts suspected bilaterally. Kidneys enhance symmetrically. Ureters are not dilated. No ureteral stones are observed. Stomach and bowel: Unremarkable stomach. Nondilated small bowel. Mild bowel wall thickening noted in the jejunum and proximal ileum. Unremarkable terminal ileum. Tortuous colon. Moderate stool. No colonic inflammatory change. Sigmoid colon diverticula noted. Appendix: Appendix is surgically absent. Intraperitoneal space: Negative for free fluid or free air. Negative for abscess. Vasculature: Negative for aneurysm. Moderate vascular calcifications are present. Lymph nodes: Unremarkable. No enlarged lymph nodes. Urinary bladder: Unremarkable as visualized. Reproductive: Unremarkable as visualized. Bones/joints: Right proximal femur hardware and heterotopic calcification. No significant narrowing noted in the hip joints. Moderate narrowing with subchondral sclerosis and osteophyte formation noted at L4-L5. Multilevel facet arthropathy present. Moderate neural foraminal narrowing noted at the right L4-L5 level. Old rib fracture with callus noted at the right 7th rib anteriorly. Soft tissues: Negative for abdominal wall hernia. Scar tissue noted in the right lower quadrant. IMPRESSION: 1. Negative for bowel obstruction. 2. Negative for abscess. 3. Findings of enteritis. Thank you for allowing us to participate in the care of your patient. Dictated and Authenticated by: Mike Arreguin MD Patient discharged from the department in hemodynamically stable condition. Discussed return instructions and follow-up PCP. This text was generated using [employer] dictation system, please disregard any oddities of phrase or misspellings. I do suspect constipation as the source for patient pain. HPI General Mode of arrival: ambulatory . Date/Time Provider Initiated Documentation: 02/02/21 18:57 . Limitations to Documentation: no limitations . Information obtained by: patient, RN notes reviewed and old records reviewed . HPI Narrative: 80-year-old female presents to the ER with chief complaint of right lower quadrant abdominal pain. Patient is status post appendectomy in October with a ruptured appendix, small abscess development who was discharged from hospital with a wound VAC the end of October this year. She was recently seen as an outpatient in surgical clinic approximately 3 weeks ago and had a I&D of some agranular tissue. Patient reports she has healed nicely from that. Denies any nausea vomiting diarrhea, fever, no drainage from the incision site, no induration noted on exam. She reports that she noticed some pain upon standing yesterday and has worsened today throughout the day. Last normal bowel movement was just prior to arrival. Denies any dysuria, chest pain shortness of breath or any other associated symptoms. She has a past medical history of acute pericarditis, hypertension, right hip fracture, hyperlipidemia, PMSHX: hysterectomy. Related Data Home Medications Medication Instructions Recorded Confirmed multivitamin [Daily Multi-Vitamin] 1 ea PO DAILY 08/28/16 02/02/21 amlodipine 2.5 mg tablet 2.5 mg PO DAILY #90 tab-cap 02/24/18 02/02/21 docusate sodium 100 mg capsule 100 mg PO DAILY 06/29/19 02/02/21 hydrocortisone 2.5 % topical cream 1 applic AZ TID PRN #30 gm 07/05/19 02/02/21 with perineal applicator acetaminophen 500 mg tablet 1,000 mg PO TID PRN #90 tab 07/24/19 02/02/21 ascorbate calcium (vitamin C) 1,000 mg PO DAILY 10/12/19 02/02/21 calcium carbonate-vitamin D3 1 tab PO DAILY 10/12/19 02/02/21 [Calcium 500 + D] cholecalciferol (vitamin D3) 125 125 mcg PO DAILY 10/12/19 02/02/21 mcg (5,000 unit) capsule naproxen sodium [Aleve] 440 mg PO DAILY 10/12/19 02/02/21 denosumab 60 mg/mL subcutaneous 60 mg SC [id number] 12/11/19 02/02/21 syringe Previous Rx's Medication Instructions Recorded amlodipine 2.5 mg tablet 2.5 mg PO DAILY #90 tab-cap 02/24/18 hydrocortisone 2.5 % topical cream 1 applic AZ TID PRN #30 gm 07/05/19 with perineal applicator acetaminophen 500 mg tablet 1,000 mg PO TID PRN #90 tab 07/24/19 Allergies Allergy/AdvReac Type Severity Reaction Status Date / Time morphine Allergy Severe throat Unverified 02/02/21 18:55 closed up alendronate sodium Allergy Intermediate chest pain Unverified 02/02/21 18:55 [From Fosamax] celecoxib [From Celebrex] AdvReac Severe Diarrhea Unverified 02/02/21 18:55 propranolol HCl AdvReac Intermediate depression Unverified 02/02/21 18:55 [From Inderal LA] tramadol HCl [From Ultram] AdvReac Intermediate Got High Unverified 02/02/21 18:55 General Stated Complaint: Abd Prob SHELLY: 3 Review of Systems All systems reviewed & are unremarkable except as noted in HPI and below Constitutional Constitutional: Reports as per HPI and Denies fever(s) Cardiovascular Cardiovascular: Denies chest pain and Denies dyspnea Respiratory Respiratory: Denies dyspnea Gastrointestinal Gastrointestinal: Reports abdominal pain, Denies melena, Denies hematochezia, Reports constipation, Denies diarrhea, Denies nausea and Denies vomiting Genitourinary Genitourinary: Denies difficulty voiding and Denies dysuria [facility] Medical History Abnormal colonoscopy Acute pericarditis Pt. states she had f/u with cardiology but has been since d/c from [facility], and stated she didn't need to follow up with [facility] unless symptoms came back Chest pain at rest (08/20/16) Thought to be related to adverse reaction to Fosamax (esophagitis?) Pt. denies having any chest pain at rest, last time was 2+ years ago Essential hypertension Hx of fracture of right hip Hyperlipidemia, unspecified 02/2017 labwork: 10-year ASCVD ~25.1% --> pt declines statins Lung nodule RUL noted incidentally 03/17/[address] carried out during workup for rectal polyp --> 04/04/19 [facility] [place] Thoracic Surgery consult and PET scan showing non-FDG avid lesion most c/w scar tissue --> plan for 3 vs. 6 mo f/u chest CT Pt. states onocology has dc'd her from care, unless new symtoms arise. 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 Essential hypertension Migraines Neoplasm Breast Father , Leukemia at age 50. TB (tuberculosis) Neoplasm Leukemia Brother Essential hypertension Heart disease Social History Smoking/Tobacco Use Status: Former Tobacco Use Quit Date: 04/19/84 Smoking risk assessment performed?: Yes Alcohol Intake: current Alcohol Intake frequency: 0-2 drinks per day Alcohol type: wine Drug use: Rarely Substance use type: marijuana Details: Patient states had brownie about three months. Alcohol: t-3, 5 ounces wine Adopted: No Caregiver/Support person: No Foster care: No Household members: spouse Number of Children: 1 Current gender identity: female What type of physical activity do you participate in: regular exercise Duration: 45-60 minutes/day Frequency: daily Seatbelt use: always Water heater temp set <120 deg: Yes Working smoke detector in home: Yes Fire extinguisher in home: Yes Carbon monox detector in home: Yes Firearms in home: Yes Firearms unloaded and locked: No Do you feel safe at home: Yes Do you feel safe in your relationship?: Yes Additional Social history: Patient reports is very active and takes walks every day. Exam Narrative Exam Narrative: Constitutional: Alert and oriented x3. Appears stated age. Normal body habitus. Head: Normocephalic, no trauma. Eyes: Pupils PERRLA, Red reflex noted, EOM's intact. Eyelids symmetrical without lesions, discharge, or swelling. Chest: RRR, Normal S1, S2, distal pulses intact. Resp: Lungs clear to auscultation bilaterally, no wheezes, rales, or rhonchi. Abdomen: Soft, nondistended, vertical incision approximately 3 cm in length noted to the right lower quadrant. No surrounding erythema or induration. Mildly tender medially with palpation. Musculoskeletal: Normal gait, 5/5 strength to all four extremities. Skin: No suspicious rashes or lesions. Capillary refill less than 2 sec. Neurologic: Cranial nerves II-XII intact. Alert and oriented x 3. DTR's intact. Hematologic/Lymphatic: No ecchymosis, no lymphadenopathy. Course Vital Signs Vital signs: Vital Signs Temperature 36.9 C 02/02/21 18:48 Pulse 90 02/02/21 18:48 Respiratory Rate 16 02/02/21 18:48 Blood Pressure 199/77 H 02/02/21 18:48 Pulse Oximetry 98 02/02/21 18:48 Temperature 36.9 C 02/02/21 18:48 Temperature Source Skin 02/02/21 18:48 Pulse 90 02/02/21 18:48 Respiratory Rate 16 02/02/21 18:48 Respiratory Effort 02/02/21 18:48 Blood Pressure 199/77 H 02/02/21 18:48 Blood Pressure Position Sitting 02/02/21 18:48 Pulse Oximetry 98 02/02/21 18:48 Oxygen Delivery Method Room Air 02/02/21 18:48 Oxygen Flow Rate 0 02/02/21 18:48 Pain Level 6 02/02/21 18:48 PAWSS Have you Been Recently Intoxicated or Drunk Within the Last 30 days?: No Have you Ever Experienced Previous Episodes of Alcohol Withdrawal?: No Have you ever Experienced Withdrawal Seizures?: No Have you ever Experienced Delirium Tremens(DT)s?: No Have you ever undergone Alcohol Rehabilitation Treatment (i.e, inpt ot outpatient treatment programs)?: No Have you ever Experienced Blackouts?: No Have you ever Combined Alcohol with other Downers within the last 90 days?: No Have you ever Combined Alcohol with any other Substance of Abuse during the last 90 days?: No Positive Blood Alcohol level on Presentation? [PCS.BAL]: No Evidence of Increased Autonomic Activity (i.e. HR>120, tremor, sweating, agitation, nausea)?: No Result: 0
--- NOTE | 2021-02-02 19:15 | DI.CT_ITS ---
Exam(s) CT ABDOMEN PELVIS W EXAM: CT ABDOMEN PELVIS W CLINICAL HISTORY: RLQ abd pain, hx of appendectomy with abscess. TECHNIQUE: Imaging Protocol: Axial computed tomography images with coronal and sagittal reformatted images were created and reviewed CONTRAST MATERIAL: Intravenous: Omnipaque 100cc Oral: None COMPARISON: CT CT CHEST PE ABD PELVIS W from 11/12/2020 FINDINGS: VISUALIZED LUNG BASES: No nodules nor pleural effusions evident. Mild increased markings ABDOMEN: There is no ascites. LIVER: There are no focal hepatic lesions evident . GALLBLADDER/BILIARY: No obvious gallbladder pathology. CBD is not dilated. PANCREAS: No evidence of pancreatic mass nor dilatation of the pancreatic duct. SPLEEN: Spleen is not enlarged. No obvious intrasplenic lesions. Splenic and portal veins are paten t. ADRENALS: There are no significant adrenal masses. KIDNEYS:There is a 3 millimeter calculus in the upper pole of the left kidney. No calculi and no oth er focal findings in the opposite-right kidney. Ureters are not dilated. There is mild hydronephros is left kidney which may be related to ureteropelvic junction obstruction. Other possibility is para pelvic cysts. Left ureter is not dilated. No obvious abnormality in the urinary bladder given that it is partially obscured by beam hardening artifact from right hip hardware. ABDOMINAL AORTA: Abdominal aorta is not enlarged. LYMPH NODES:There is no retroperitoneal nor paraaortic adenopathy. ABDOMINAL WALL: Small fat containing umbilical hernia. Does not contain bowel loops therein. GI: There is no evidence of bowel obstruction, free air, nor abscess. PELVIS: GI: The appendix is surgically absent. No abnormal collection in the right lower quadrant nor adenop athy.Sigmoid diverticuli but no obvious acute diverticulitis. LYMPH NODES: There is no intrapelvic nor inguinal adenopathy. REPRODUCTIVE: Uterus is surgically absent. There are no abnormal adnexal URINARY BLADDER: Partially obscured by beam hardening artifact from right hip hardware. No obvious c alculi nor obvious masses evident OSSEOUS: Advanced disc space narrowing at L4-5 level and mild anterolisthesis of L4 upon L5 related t o facet arthropathy. L5-S1 level exhibits normal height and no listhesis. IMPRESSION: 1. There is evidence of previous hysterectomy and appendectomy. There is no evidence of bowel obstru ction, free air, nor abscess. 2. There is a nonobstructive 3 millimeter calculus in the upper pole the left kidney. There appears to be mild hydronephrosis of the left kidney related to an element of renal pelvic junction obstructi on. No other possibility here would be parapelvic cysts in left kidney. There are no significant fo marcus findings in the right kidney. 3. Right hip hardware noted. RADIATION DOSE DELIVERED: 553.13mGy.cm Total DLP DATA REPOSITORY: All CT scans at this facility are submitted to the National Radiology Data Registry (NRDR) Dose Index Registry (DIR) with the [employer] ([employer]). RADIATION OPTIMIZATION: All CT scans at this facility use at least one of these dose optimization te chniques: automated exposure control; mA and/or kV adjustment per patient size (includes targeted exa ms where dose is matched to clinical indication); or iterative reconstruction.
[2021-02-02 19:17] LABS: Bilirubin Negative (Negative); Blood Trace-intact (Negative); Clarity Sl Cloudy (Clear); Glucose Negative (Negative); Ketones Trace mg/dL (Negative); Leukocyte Esterase Negative (Negative); Nitrite Negative (Negative); Specific Gravity 1.025 (1.005-1.025); Urobilinogen 0.2 EU/dL (Up TO 0.2)
[2021-02-02 19:24] LABS: Bacteria Few HPF (Negative); C & S Indicated? No; Casts Negative LPF (Negative); Crystals Moderate Amorphous HPF (Negative); Epithelial Cells Moderate HPF (Negative); Mucus Negative (Negative); WBC 0-2 HPF (0-5)
[2021-02-02 19:32] LABS: Abs Immature Grans 0.01 10^3/uL (0.0-0.06); Absolute Basophil Count 0.05 10^3/uL (0.0-0.2); Absolute Eosinophil Count 0.38 10^3/uL (0.0-0.7); Absolute Lymphocyte Count 1.71 10^3/uL (1.2-3.4); Absolute Monocyte Count 0.75 10^3/uL (0.1-0.8); Absolute Neutrophil Count 1.95 10^3/uL (1.2-6.7); Eosinophils % 7.8; HCT 38.7 % (36.0-46.0); HGB 12.3 g/dL (11.2-15.7); Immature Grans % 0.2; Lymphocytes % 35.3; MCH 28.9 pg (27.0-33.0); MCHC 31.8 % (32.0-36.0); MCV 91.1 fL (80-95); MPV 11.7 fL (8.0-11.0); Monocytes % 15.5; Neutrophils % 40.2; Nucleated RBC 0 %; Platelet Count 159 10^3/uL (130-400); RBC 4.25 10^6/uL (3.93-5.22); RDW 15.1 % (11.7-14.6); RDW-SD 50.5 fL; WBC 4.85 10^3/uL (4.4-10.8)
[2021-02-02 19:47] LABS: ALT 21 U/L (14-59); AST 11 U/L (15-37); Albumin 3.7 g/dL (3.4-5.0); Alkaline Phosphatase 93 U/L (46-116); Anion Gap 7.1 mmol/L (3-11); BUN 24 mg/dL (7-18); Bilirubin, Total 0.2 mg/dL (0.2-1.0); CO2 30.9 mmol/L (21.0-32.0); Calcium 9.1 mg/dL (8.5-10.1); Chloride 106 mmol/L (98-107); Estimated GFR 53.62 (mL/min/1.73m2); Glucose 108 mg/dL (74-106); Magnesium 2.3 mg/dL (1.8-2.4); Potassium 3.7 mmol/L (3.5-5.1); Sodium 144 mmol/L (136-145); Total Protein 7.1 g/dL (6.4-8.2)
[2021-02-02] MEDS: Normal Saline 500 ML IV (20:00)
[2021-02-02] MEDS: Omnipaque 350 MG/ML 100 ML BTL IJ (20:16)
[2021-02-02] MEDS: Normal Saline - Diluent 50 ML VIAL IV (20:17)
[2021-02-02] MEDS: Normal Saline Flush 10 ML SYR IVP (20:17)
[2021-02-02 20:31] VITALS: BP 192/77; PULSE 73; TEMP 36.1; O2SAT 98
--- NOTE | 2021-02-02 21:29 | DI.VRAD_ITS ---
PROCEDURE INFORMATION: Exam: CT Abdomen And Pelvis With Contrast Exam date and time: 02/02/2021 7:27 PM Age: 80 years old Clinical indication: Abdominal pain; Localized; Right lower quadrant (rlq); Prior surgery; Surgery date: 1-6 months; Surgery type: Appendectomy in October. HX of R hip repair, hysterectomy, bladder and rectal surgery; Patient HX: Rlq abd pain, HX of appendectomy with abscess. Pain at surgical site TECHNIQUE: Imaging protocol: Computed tomography of the abdomen and pelvis with contrast. Radiation optimization: All CT scans at this facility use at least one of these dose optimization techniques: automated exposure control; mA and/or kV adjustment per patient size (includes targeted exams where dose is matched to clinical indication); or iterative reconstruction. Contrast material: OMNIPAQUE 350; Contrast volume: 75 ml; Contrast route: INTRAVENOUS (IV); COMPARISON: CT ABDOMEN PELVIS W 11/03/2020 7:36 PM FINDINGS: Lungs: Lung bases are clear. Diaphragm: Mild hiatal hernia. Liver: Normal. No mass. Gallbladder and bile ducts: Normal. No calcified stones. No ductal dilation. Pancreas: Normal. No ductal dilation. Spleen: Normal. No splenomegaly. Adrenal glands: Normal. No mass. Kidneys and ureters: No definite hydronephrosis. Peripelvic cysts suspected bilaterally. Kidneys enhance symmetrically. Ureters are not dilated. No ureteral stones are observed. Stomach and bowel: Unremarkable stomach. Nondilated small bowel. Mild bowel wall thickening noted in the jejunum and proximal ileum. Unremarkable terminal ileum. Tortuous colon. Moderate stool. No colonic inflammatory change. Sigmoid colon diverticula noted. Appendix: Appendix is surgically absent. Intraperitoneal space: Negative for free fluid or free air. Negative for abscess. Vasculature: Negative for aneurysm. Moderate vascular calcifications are present. Lymph nodes: Unremarkable. No enlarged lymph nodes. Urinary bladder: Unremarkable as visualized. Reproductive: Unremarkable as visualized. Bones/joints: Right proximal femur hardware and heterotopic calcification. No significant narrowing noted in the hip joints. Moderate narrowing with subchondral sclerosis and osteophyte formation noted at L4-L5. Multilevel facet arthropathy present. Moderate neural foraminal narrowing noted at the right L4-L5 level. Old rib fracture with callus noted at the right 7th rib anteriorly. Soft tissues: Negative for abdominal wall hernia. Scar tissue noted in the right lower quadrant. IMPRESSION: 1. Negative for bowel obstruction. 2. Negative for abscess. 3. Findings of enteritis. Dictated and Authenticated by: Mike Arreguin MD. Ordering:ALISON Ac MD
[2021-02-02 22:04] VITALS: BP 193/89; PULSE 78; RESP 18; TEMP 36.4; O2SAT 97
== END 2021-02-02 22:07 | disposition home or self-care (01) ==
PROVIDERS: Emergency Provider Registered Nurse Emergency; PCP Nurse Practitioner
DX: R10.31 Right lower quadrant pain (principal); K52.9 Noninfective gastroenteritis and colitis, unspecified; Z90.49 Acquired absence of other specified parts of digestive tract
CPT/HCPCS: 36415; 80053; 96360; 96361; 99285; 74177; 81003; 81015; 83735; 85025; 99284; J3490

== ENCOUNTER 2021-08-18 07:22 | Day surgery (SDC) | payer MEDICARE, OTHER, SELFPAY ==
--- NOTE | 2021-08-18 07:37 | W.ANESPRE ---
General Info Date of Service Date Performed: 08/18/21 Height: 5 ft 1 in Weight: 52.163 kg Body Mass Index (BMI): 21.7 Surgical Procedure: Operation Date: 08/18/21 09:10 Proposed Procedure Side Surgeon p Cataract Extraction with IOL Implant Left Roberto Lauren MD Meds Allergies and Home Medications Allergies Allergy/AdvReac Type Severity Reaction Status Date / Time morphine Allergy Severe throat Verified 08/18/21 07:45 closed up alendronate sodium Allergy Intermediate chest pain Verified 08/18/21 07:45 [From Fosamax] celecoxib [From Celebrex] AdvReac Severe Diarrhea Verified 08/18/21 07:45 propranolol HCl AdvReac Intermediate depression Verified 08/18/21 07:45 [From Inderal LA] tramadol HCl [From Ultram] AdvReac Intermediate Got High Verified 08/18/21 07:45 Home Medication Medication Instructions Recorded multivitamin (Daily Multi-Vitamin) 1 ea PO DAILY 08/28/16 amlodipine 2.5 mg tablet 2.5 mg PO DAILY #90 tab-cap 02/24/18 docusate sodium 100 mg capsule 100 mg PO DAILY 06/29/19 (Colace) hydrocortisone 2.5 % topical cream 1 applic [place] TID PRN #30 gm 07/05/19 with perineal applicator acetaminophen 500 mg tablet 1,000 mg PO TID PRN #90 tab 07/24/19 ascorbate calcium (vitamin C) 500 1,000 mg PO DAILY 10/12/19 mg tablet calcium carbonate 500 mg-vitamin 1 tab PO DAILY 10/12/19 D3 5 mcg (200 unit) tablet (Calcium 500 + D) cholecalciferol (vitamin D3) 125 125 mcg PO DAILY 10/12/19 mcg (5,000 unit) capsule naproxen sodium 220 mg tablet 440 mg PO DAILY 10/12/19 (Aleve) denosumab 60 mg/mL subcutaneous 60 mg SC [id number] 12/11/19 syringe (Prolia) [facility] Active Problems Active Problems: Problem Status Onset Code Cortical cataract of left eye H26.9 Nuclear sclerotic cataract of left eye H25.12 Acute idiopathic pericarditis 07/23/17 I30.0 Essential hypertension I10 Hyperlipidemia, unspecified E78.5 Metatarsalgia of both feet 07/08/17 M77.41, M77.42 Osteoporosis, unspecified M81.0 Rectal pain K62.89 Hematochezia K92.1 Anal fissure K60.2 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 states she had f/u with cardiology but has been since d/c from [facility], and stated she didn't need to follow up with [facility] unless symptoms came back (2018) Chest pain at rest (08/20/16) Thought to be related to adverse reaction to Fosamax (esophagitis?) Pt. 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) [facility] [place] Unspecified vertiginous syndromes and labyrinthine disorders (08/20/16) Surgical History Surgical History Bladder Suspension With correction of rectal prolapse at the same time H/O rectal polypectomy (04/15/18) History of colonoscopy (~09/2019) Ligation of fallopian tube (~1972) Vaginal hysterectomy Tobacco Smoking/Tobacco Use Status: Former Tobacco Use Alcohol Alcohol Intake: current Alcohol intake frequency: 0-2 drinks per day Alcohol type: wine Substance Use Substance use: Rarely Substance use type: marijuana Details: Patient states had brownie about three months. Vital Signs and Lab Results Lab Results Blood Type / Crossmatch: No Data to Display Complete Blood Count: No Data to Display Complete Metabolic Panel: No Data to Display Liver Function Panel: No Data to Display Coagulation Panel: No Data to Display Cardiac Panel: No Data to Display Arterial Blood Gas: No Data to Display Venous Blood Gas: No Data to Display Pancreas Panel: No Data to Display Thyroid Panel: No Data to Display Infectious Disease: No Data to Display Blood Cultures: No Data to Display Toxicology Panel: No Data to Display Imaging and Studies Imaging and Studies Study information below may be from another EMR and interpreted by another provider. Please see original notes in EMR for more complete details. EKG Summary: Conclusion Sinus rhythm...normal P axis, V-rate 60- 99 Probable left atrial enlargement...P >50mS, <-0.10mV V1 I have reviewed and interpreted ECG and agree with software generated interpretation. There are no significant changes compared to prior EKG performed on 07/11/2019 at 19:16. Stress Test Summary: Impressions: - Normal stress test after maximal exercise. - Low risk of cardiac events. Summary: 1. Myocardial perfusion imaging: No myocardial perfusion defects noted. 2. The calculated left ventricular ejection fraction after stress: 61%. LV global systolic function is normal. No left ventricular regional motion abnormality. 3. Stress ECG conclusions: The stress ECG is negative. 4. Stress: The target heart rate was achieved. There is a normal resting blood pressure with an appropriate response to stress. The patient experienced no chest pain during stress. Exercise capacity is good. 06/29/07 Echocardiogram Summary: Summary: 1. Left ventricle: The cavity size was normal. Wall thickness was normal. Systolic function was at the lower limits of normal. The estimated ejection fraction was 50-55%. Wall motion was normal; there were no regional wall motion abnormalities. 2. Right ventricle: The cavity size was normal. Systolic function was normal. 3. Inferior vena cava: The vessel was normal in size. The respirophasic diameter changes were in the normal range (greater than or equal to 50%), consistent with normal central venous pressure. 4. Pericardium, extracardiac: There was no pericardial effusion. 10/15/17 Anesthesia Assessment and Plan Anesthesia History Personal History: No History of Anesthesia Complications Family History: No Family History of Anesthesia Complications Exercise Tolerance Exercise Tolerance: Metabolic Equivalents>4 Cardiac & Pulmonary Exam Cardiac Exam: Normal S1/S2 Heart Sounds Pulmonary Exam: Clear Bilateral Breath Sounds Implantable Cardiac Device Does patient have a Pacemaker or an ICD?: No Airway Exam Known Difficult Airway: No Mallampati Class: 2 Mouth Opening: Normal (> 3cm) Thyromental Distance: Greater than 3 cm Neck Range of Motion: Full ROM Neck Circumference: Normal Teeth Condition: Normal Dentition and Other (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
[2021-08-18 07:39] VITALS: BP 157/88; PULSE 86; RESP 16; TEMP 36.3; O2SAT 98
[2021-08-18] MEDS: Tropicam./Phenyleph. (1/2.5%) 5 ML BTL ×3 (07:49→08:06)
[2021-08-18 07:59] VITALS: BMI 21.7
[2021-08-18] MEDS: Tetracaine 0.5% 4 ML BTL (08:48)
[2021-08-18] MEDS: Balanced Salt Soln.-PLUS 500 ML BAG (08:48)
[2021-08-18] MEDS: Duovisc Viscoelastic System EACH 1 EACH (08:48)
[2021-08-18] MEDS: Lidocaine 2% Jelly 6 ML SYR (08:52)
[2021-08-18] MEDS: Povidone-Iodine Ophth 30 ML BTL (08:54)
[2021-08-18 09:08] VITALS: BP 138/90; PULSE 89; RESP 16; TEMP 36.4; O2SAT 98
--- NOTE | 2021-08-18 09:12 | W.PM.DSUDISC ---
Discharge Plan Disposition Patient Disposition: HOME Condition: Good Discharge Details Attending Provider: Roberto Lauren Primary Care Provider: VONDA FLORENCE Home Meds and New Rx's Prescriptions: No Action cholecalciferol (vitamin D3) 125 mcg (5,000 unit) capsule 125 mcg PO DAILY 0RF Prolia 60 mg/mL syringe 60 mg SC [id number] 0RF docusate sodium [Colace] 100 mg capsule 100 mg PO DAILY 0RF hydrocortisone 2.5 % cream with perineal applicator 1 applic [place] TID PRN (Reason: hemorrhoids) Qty: 30 2RF multivitamin [Daily Multi-Vitamin] 1 EACH tablet 1 ea PO DAILY 0RF amlodipine 2.5 mg tablet 2.5 mg PO DAILY Qty: 90 3RF acetaminophen 500 mg tablet 1,000 mg PO TID PRN (Reason: fever) Qty: 90 0RF Rx Instructions: take 2 tablets by mouth, three times per day ascorbate calcium (vitamin C) 500 mg Tablet 1,000 mg PO DAILY 0RF naproxen sodium [Aleve] 220 mg Tablet 440 mg PO DAILY 0RF calcium carbonate-vitamin D3 [Calcium 500 + D] 500 mg(1,250mg) -200 unit Tablet 1 tab PO DAILY 0RF Discharge Instructions Stand Alone Forms: Post-op Block Cataract, Post-op Topical Cataract, Press Ganey (DSU) Discharge Orders Discharge Orders: Discharge Order (Routine); Ordered 08/18/21 Ordered By: Roberto Lauren DS: Diagnosis Discharge Diagnosis (1) Cortical cataract of left eye: Status: Resolved (2) Nuclear sclerotic cataract of left eye: Status: Resolved
--- NOTE | 2021-08-18 09:13 | ROE_ITS ---
Date of service: 08/18/21 Time of Service: 09:13 Operative Note Operative Note DATE OF PROCEDURE: 08/18/21 PRE-OP DIAGNOSIS: Nuclear/cortical cataract, left POST-OP DIAGNOSIS: same PROCEDURE: Cataract extraction using phacoemulsification with intraocular lens implant, left eye SURGEON: Roberto Lauren ANESTHESIA TYPE: Local By Surgeon and MAC Refer to Anesthesia Record PATHOLOGY: none sent COMPLICATIONS: None Patient was transported to: same day Patient's condition: stable Implants: [employer] / [employer] Tecnis [id number] Indications: Progressive decreased vision due to cataract, left eye Procedure Description: CATARACT SURGERY OPERATIVE REPORT PREOPERATIVE DIAGNOSIS: 1. Nuclear/cortical cataract, left eye POSTOPERATIVE DIAGNOSIS: Same OPERATION: 1. Cataract extraction using phacoemulsification with posterior chamber intraocular lens implant, left eye. IOL: IOL Supervisor [employer]/Model: [employer] Farhan / SHIRA Tecnis [id number] IOL Power: + 27.5 diopters IOL Serial Number: [id number] Optic Diameter: 6.0 mm Haptic/Overall Diameter: 13.0 mm PHACO INFO: NeyGritnesson Vision System with OZil and Active Fluidics Cumulative Dispersed Energy (CDE): 11.42 seconds SURGEON: Roberto Lauren MD, LUIS ANESTHESIA: Monitored A [facility] (MAC), with local sub-tenon's anesthetic infiltration COMPLICATIONS: None SPECIMENS: None INDICATIONS FOR PROCEDURE: The patient is a 81-year-old lady with history of diminished visual acuity in her left eye secondary to the development of nuclear/cortical cataract. The option of cataract surgery was offered to the patient and she wished to proceed. PROCEDURE: The correct surgical eye was identified and marked as the left eye and the pupil was dilated in the preoperative area using mydriatics and cycloplegics. The dilated pupil size was 4.5 mm. She elected to proceed without oral sedation. The patient was brought to the operating room where cardiopulmonary monitoring was instituted and surgical time-out was performed, confirming the correct operative eye and IOL power. Topical anesthesia was administered and ophthalmic povidone-iodine 5% was instilled into the conjunctival fornices. Lidocaine gel was applied to the c ornea and the hubert-ocular area was prepped with Betadine 10% solution and draped in the usual sterile fashion for intraocular surgery, including an aperture drape. A Tegaderm transparent film dressing was cut in half and used to cover the lashes and lid margins. Care was taken to sequester the lashes and lid margins under the Tegaderm dressing. A lid speculum was placed between the lids of the operative eye and the Ney LuxOR Revalia operating microscope was maneuvered into position. Juan scissors were then used to make a conjunctival buttonhole approximately 6mm posterior to the limbus in the inferonasal quadrant. Blunt dissection was carried out to expose bare sclera, and a blunt-tipped sub-tenon?s anesthesia cannula was introduced and passed posteriorly along the globe where non- preserved plain lidocaine was injected into posterior sub-Tenon?s space. A sideport knife was used to make a paracentesis port superiorly/superiortemporally. Intraocular phenylephrine/lidocaine was injected int the anterior chamber.. The anterior chamber was filled with viscoelastic. With phenylephrine and Viscoat dilation, pupil size was approximately 5.5 mmA 2.4mm keratome knife was used to create a half-thickness groove at the limbus and then to construct a three-plane near-clear corneal tunnel extending 2.0mm into clear cornea at the 3:00 position. A flap was raised on the anterior ca psule and capsulorhexis forceps were used to complete a continuous curvilinear capsulorhexis of 5.0 mm. Balanced salt solution was then used to perform cortical cleaving hydrodissection and nuclear hydrodelineation until the lens could be freely rotated within the capsular bag. The lens nucleus was then disassembled and removed within the capsular bag and iris plane using phacoemulsification. R esidual cortical material was removed using the 45-degree angled silicone I/A tip with 0.3mm port. The posterior capsule was carefully polished to remove as much residual lens epithelial cells as safely possible. The capsular bag was then inflated and the anterior chamber deepened with viscoelastic. The lens implant described above was inserted into the capsular bag using the SHIRA Eureka Injector. A Kuglen hook was used to dial the IOL into position. Residual viscoelastic was then removed first from posterior to the IOL, then from the anterior chamber using the I/A handpiece. The lens implant was noted to center nicely within the capsular bag. The incisions were stromally hydrated, and the anterior chamber was reformed using BSS. Then 0.5cc of moxifloxacin 1.0mg/ml were injected into the capsular bag and anterior chamber. The incisions were checked with a Weck spear and found to be secure. Several drops of ophthalmic povidone-iodine 5% were then applied to the eye followed by two drops of Imprimis combination prednisolone/moxifloxacin/nepafenac solution. The drapes were removed and a clear plastic protective eye shield was placed over the eye. The patient was then returned to Same Day Surgery in stable condition.
--- NOTE | 2021-08-18 14:14 | W.ANESPOSTOP ---
Postoperative Evaluation Date, Time and Location Date Performed: 08/18/21 Time Performed: 09:10 Patient Location: Day Surgery Unit Vital Signs Most Recent Imported Vital Signs: Most Recent Vital Signs Temp Pulse Resp BP Pulse Ox 36.4 C L 89 16 138/90 98 08/18/21 09:08 08/18/21 09:08 08/18/21 09:08 08/18/21 09:08 08/18/21 09:08 Pain Score Most Recent Pain Score: Most Recent Pain Score Pain Level 0 08/18/21 09:08 Assessment Mental Status: Awake (Alert & Oriented to Patient Baseline) Airway and Respiratory Function: Patent airway with normal (patient baseline) respiratory exam Cardiovascular Function: Hemodynamically Stable Hydration Status: Adequately Hydrated Nausea & Vomiting: No Nausea or Vomiting Pain: Pt. Denies Any Pain Peripheral Nerve Block: Patient did not receive a nerve block
== END 2021-08-18 09:30 | disposition home or self-care (01) ==
PROVIDERS: PCP Nurse Practitioner Family; Visit Provider Ophthalmology
PROC: (CPT 66984; principal; 2021-08-18 09:00)
DX: H25.12 Age-related nuclear cataract, left eye (principal); I10 Essential (primary) hypertension; E78.5 Hyperlipidemia, unspecified
CPT/HCPCS: 66984; V2632

== ENCOUNTER 2021-09-01 06:18 | Day surgery (SDC) | payer MEDICARE, OTHER, SELFPAY ==
[2021-09-01 06:35] VITALS: BP 182/77; PULSE 79; RESP 16; TEMP 36.5; O2SAT 99
[2021-09-01] MEDS: Tropicam./Phenyleph. (1/2.5%) 5 ML BTL OD ×3 (06:42→06:56)
[2021-09-01 06:52] VITALS: BP 168/84; PULSE 80; RESP 16; TEMP 36.6; O2SAT 99
--- NOTE | 2021-09-01 06:57 | ANES.PREOP_ITS ---
General Info Date of Service Date Performed: 09/01/21 Height: 5 ft 1 in Weight: 58.2 kg Body Mass Index (BMI): 24.2 Surgical Procedure: Operation Date: 09/01/21 07:40 Proposed Procedure Side Surgeon p Cataract Extraction with IOL Implant Right Roberto Lauren MD Meds Allergies and Home Medications Allergies Allergy/AdvReac Type Severity Reaction Status Date / Time morphine Allergy Severe throat Verified 09/01/21 06:39 closed up alendronate sodium Allergy Intermediate chest pain Verified 09/01/21 06:39 [From Fosamax] celecoxib [From Celebrex] AdvReac Severe Diarrhea Verified 09/01/21 06:39 propranolol HCl AdvReac Intermediate depression Verified 09/01/21 06:39 [From Inderal LA] tramadol HCl [From Ultram] AdvReac Intermediate Got High Verified 09/01/21 06:39 Home Medication Medication Instructions Recorded multivitamin (Daily Multi-Vitamin 1 ea PO DAILY 08/28/16 tablet) amlodipine 2.5 mg tablet 2.5 mg PO DAILY #90 tab-caps 02/24/18 docusate sodium 100 mg capsule 100 mg PO DAILY 06/29/19 (Colace) hydrocortisone 2.5 % topical cream 1 applic [place] TID PRN hemorrhoids 07/05/19 with perineal applicator #30 grams acetaminophen 500 mg tablet 1,000 mg PO TID PRN fever #90 tabs 07/24/19 ascorbate calcium (vitamin C) 500 1,000 mg PO DAILY 10/12/19 mg tablet calcium carbonate 500 mg-vitamin 1 tab PO DAILY 10/12/19 D3 5 mcg (200 unit) tablet (Calcium 500 + D) cholecalciferol (vitamin D3) 125 125 mcg PO DAILY 10/12/19 mcg (5,000 unit) capsule naproxen sodium 220 mg tablet 440 mg PO DAILY 10/12/19 (Aleve) denosumab 60 mg/mL subcutaneous 60 mg subcut [id number] 12/11/19 syringe (Prolia) Current Visit Medications: Current Medications Generic Name Dose Route Start Last Admin Trade Name Freq PRN Reason Stop Dose Admin Acetaminophen 1,000 mg 09/01/21 06:00 Acetaminophen 500 Mg Tab PO Q4H PRN PRN Miscellaneous Medication 0 ml 09/01/21 06:00 Prednisolone 1%, Moxifloxacin 0.5%, Nepafenac 0.1% 5ml Btl OD DIRECTED [facility] Miscellaneous Medication 0 ml 09/01/21 06:00 09/01/21 06:56 Tropicam./Phenyleph. 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 Lung nodule R91.1 Closed intertrochanteric fracture of right hip S72.141A Fall due to ice or snow W00.9XXA DVT prophylaxis Z29.9 Discharge planning issues Z02.9 Pes anserine bursitis M70.50 Unspecified vertiginous syndromes and labyrinthine disorders H81.90 Acute appendicitis K35.80 Ruptured suppurative appendicitis K35.32 Pelvic abscess Thoracic back pain M54.6 Open wound anterior abdominal wall S31.109A Abnormal granulation tissue of abdomen L92.9 Gastroenteritis K52.9 Abdominal pain R10.9 Nuclear sclerotic cataract of left eye H25.12 Cortical cataract of left eye H26.9 Nuclear sclerotic cataract of right eye H25.11 Cortical cataract of right eye H26.9 Medical History Medical History Abnormal colonoscopy Acute pericarditis Pt. states she had f/u with cardiology but has been since d/c from [facility], and stated she didn't need to follow up with [facility] unless symptoms came back (2018) Chest pain at rest (08/20/16) Thought to be related to adverse reaction to Fosamax (esophagitis?) Pt. 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) [facility] [place] Unspecified vertiginous syndromes and labyrinthine disorders (08/20/16) Surgical History Surgical History (Updated 09/01/21 @ 06:38 by Ida Cassidy) Bladder Suspension With correction of rectal prolapse at the same time H/O rectal polypectomy (04/15/18) History of colonoscopy (~09/2019) Hx of cataract surgery Ligation of fallopian tube (~1972) Vaginal hysterectomy Tobacco Smoking/Tobacco Use Status: Former Tobacco Use Alcohol Alcohol Intake: current Alcohol intake frequency: 0-2 drinks per day Alcohol type: wine Substance Use Substance use: Rarely Substance use type: marijuana Vital Signs and Lab Results Vital Signs Most Recent Vital Signs in EMR: Most Recent Vital Signs Temp Pulse Resp BP Pulse Ox 36.6 C 80 16 168/84 H 99 09/01/21 06:52 09/01/21 06:52 09/01/21 06:52 09/01/21 06:52 09/01/21 06:52 Lab Results Blood Type / Crossmatch: No Data to Display Complete Blood Count: No Data to Display Complete Metabolic Panel: No Data to Display Liver Function Panel: No Data to Display Coagulation Panel: No Data to Display Cardiac Panel: No Data to Display Arterial Blood Gas: No Data to Display Venous Blood Gas: No Data to Display Pancreas Panel: No Data to Display Thyroid Panel: No Data to Display Infectious Disease: No Data to Display Blood Cultures: No Data to Display Toxicology Panel: No Data to Display Imaging and Studies Imaging and Studies Study information below may be from another EMR and interpreted by another provider. Please see original notes in EMR for more complete details. EKG Summary: Conclusion Sinus rhythm...normal P axis, V-rate 60- 99 Probable left atrial enlargement...P >50mS, <-0.10mV V1 I have reviewed and interpreted ECG and agree with software generated interpretation. There are no significant changes compared to prior EKG performed on 07/11/2019 at 19:16. Stress Test Summary: Impressions: - Normal stress test after maximal exercise. - Low risk of cardiac events. Summary: 1. Myocardial perfusion imaging: No myocardial perfusion defects noted. 2. The calculated left ventricular ejection fraction after stress: 61%. LV global systolic function is normal. No left ventricular regional motion abnormality. 3. Stress ECG conclusions: The stress ECG is negative. 4. Stress: The target heart rate was achieved. There is a normal resting blood pressure with an appropriate response to stress. The patient experienced no chest pain during stress. Exercise capacity is good. 06/29/07 Echocardiogram Summary: Summary: 1. Left ventricle: The cavity size was normal. Wall thickness was normal. Systolic function was at the lower limits of normal. The estimated ejection fraction was 50-55%. Wall motion was normal; there were no regional wall motion abnormalities. 2. Right ventricle: The cavity size was normal. Systolic function was normal. 3. Inferior vena cava: The vessel was normal in size. The respirophasic diameter changes were in the normal range (greater than or equal to 50%), consistent with normal central venous pressure. 4. Pericardium, extracardiac: There was no pericardial effusion. 10/15/17 Anesthesia Assessment and Plan Anesthesia History Personal History: No History of Anesthesia Complications Family History: No Family History of Anesthesia Complications Exercise Tolerance Exercise Tolerance: Metabolic Equivalents>4 Pertinent Negatives Pertinent Negatives: No Symptoms of GERD, No Major Cardiovascular Symptoms or Complaints, No Major Pulmonary Symptoms or Complaints and No History of CVA/TIA Cardiac & Pulmonary Exam Cardiac Exam: Normal S1/S2 Heart Sounds Pulmonary Exam: Clear Bilateral Breath Sounds Implantable Cardiac Device Does patient have a Pacemaker or an ICD?: No Airway Exam Known Difficult Airway: No Mallampati Class: 2 Mouth Opening: Normal (> 3cm) Thyromental Distance: Greater than 3 cm Neck Range of Motion: Full ROM Neck Circumference: Normal Teeth Condition: Normal Dentition and Other (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
[2021-09-01 06:59] VITALS: BMI 24.2
[2021-09-01] MEDS: Tetracaine 0.5% 4 ML BTL OD (07:19)
[2021-09-01] MEDS: Balanced Salt Soln.-PLUS 500 ML BAG (07:29)
[2021-09-01] MEDS: Duovisc Viscoelastic System EACH 1 EACH (07:30)
[2021-09-01] MEDS: Lidocaine 2% Jelly 6 ML SYR (07:30)
[2021-09-01] MEDS: Povidone-Iodine Ophth 30 ML BTL (07:30)
--- NOTE | 2021-09-01 07:48 | W.ANESPOSTOP ---
Postoperative Evaluation Date, Time and Location Date Performed: 09/01/21 Time Performed: 06:48 Patient Location: Day Surgery Unit Vital Signs Most Recent Imported Vital Signs: Most Recent Vital Signs Temp Pulse Resp BP Pulse Ox 36.6 C 80 16 168/84 H 99 09/01/21 06:52 09/01/21 06:52 09/01/21 06:52 09/01/21 06:52 09/01/21 06:52 Pain Score Most Recent Pain Score: Most Recent Pain Score Pain Level 0 09/01/21 06:52 Assessment Mental Status: Awake (Alert & Oriented to Patient Baseline) Airway and Respiratory Function: Patent airway with normal (patient baseline) respiratory exam Cardiovascular Function: Hemodynamically Stable Hydration Status: Adequately Hydrated Nausea & Vomiting: No Nausea or Vomiting Pain: Pt. Denies Any Pain Peripheral Nerve Block: Patient did not receive a nerve block
--- NOTE | 2021-09-01 07:52 | W.PM.DSUDISC ---
Discharge Plan Disposition Patient Disposition: HOME Condition: Good Discharge Details Attending Provider: Roberto Lauren Primary Care Provider: VONDA FLORENCE Home Meds and New Rx's Prescriptions: No Action cholecalciferol (vitamin D3) 125 mcg (5,000 unit) capsule 125 mcg PO DAILY Prolia 60 mg/mL syringe 60 mg SC [id number] docusate sodium [Colace] 100 mg capsule 100 mg PO DAILY hydrocortisone 2.5 % cream with perineal applicator 1 applic TX TID PRN (Reason: hemorrhoids) Qty: 30 2RF multivitamin [Daily Multi-Vitamin] 1 EACH tablet 1 ea PO DAILY amlodipine 2.5 mg tablet 2.5 mg PO DAILY Qty: 90 3RF acetaminophen 500 mg tablet 1,000 mg PO TID PRN (Reason: fever) Qty: 90 0RF Rx Instructions: take 2 tablets by mouth, three times per day ascorbate calcium (vitamin C) 500 mg Tablet 1,000 mg PO DAILY naproxen sodium [Aleve] 220 mg Tablet 440 mg PO DAILY calcium carbonate-vitamin D3 [Calcium 500 + D] 500 mg(1,250mg) -200 unit Tablet 1 tab PO DAILY Discharge Instructions Stand Alone Forms: Post-op Topical Cataract, Yamile Arvizu (DSU) Discharge Orders Discharge Orders: Discharge Order (Routine); Ordered 09/01/21 Ordered By: Roberto Lauren DS: Diagnosis Discharge Diagnosis (1) Cortical cataract of right eye: Status: Resolved (2) Nuclear sclerotic cataract of right eye: Status: Resolved
--- NOTE | 2021-09-01 07:54 | W.PM.OP ---
Date of service: 09/01/21 Time of Service: 06:54 Operative Note Operative Note DATE OF PROCEDURE: 09/01/21 PRE-OP DIAGNOSIS: Nuclear/cortical cataract, right eye POST-OP DIAGNOSIS: same PROCEDURE: Cataract extraction using phacoemulsification with intraocular lens implant, right eye SURGEON: Roberto Lauren ANESTHESIA TYPE: Local By Surgeon and MAC Refer to Anesthesia Record ESTIMATED BLOOD LOSS: 0 PATHOLOGY: none sent COMPLICATIONS: None Patient was transported to: same day Patient's condition: stable Implants: [employer]/SHIRA Tecnis [id number] Indications: Progressive visual loss due to cataract, right eye Procedure Description: CATARACT SURGERY OPERATIVE REPORT PREOPERATIVE DIAGNOSIS: 1. Nuclear/cortical cataract, right eye POSTOPERATIVE DIAGNOSIS: Same OPERATION: 1. Cataract extraction using phacoemulsification with posterior chamber intraocular lens implant, right eye. IOL: IOL Tempering Kiln Tender/Model: [employer] Far[employer] / SHIRA Tecnis [id number] IOL Power: + 26.0 diopters IOL Serial Number: [id number] Optic Diameter: 6.0mm Haptic/Overall Diameter: 13.0mm PHACO INFO: [employer]ey [employer]urion Vision System with OZil and Active Fluidics Cumulative Dispersed Energy (CDE): 9.71 seconds SURGEON: Roberto Lauren MD, LUIS ANESTHESIA: Monitored Anesthesia Care (MAC), with local sub-tenon's anesthetic infiltration COMPLICATIONS: None SPECIMENS: None INDICATIONS FOR PROCEDURE: The patient is a 81-year-old lady with history of diminished visual acuity in her right eye secondary to the development of nuclear/cortical cataract. The option of cataract surgery was offered to the patient and she wished to proceed. She has already undergone cataract surgery in the left eye and is doing well postoperatively. She now presents for cataract surgery in the right eye. PROCEDURE: The correct surgical eye was identified and marked as the right eye and the pupil was dilated in the preoperative area using mydriatics and cycloplegics. The dilated pupil size was 5.0 mm. She elected to proceed without oral sedation. The patient was brought to the operating room where cardiopulmonary monitoring was instituted and surgical time-out was performed, confirming the correct operative eye and IOL power. Topical anesthesia was administered and ophthalmic povidone-iodine 5% was instilled into the conjunctival fornices. Lidocaine gel was applied to the cornea and the hubert-ocular area was prepped with Betadine 10% solution and draped in the usual sterile fashion for intraocular surgery, including an aperture drape. A Tegaderm transparent film dressing was cut in half and used to cover the lashes and lid margins. Care was taken to sequester the lashes and lid margins under the Tegaderm dressing. A lid speculum was placed between the lids of the operative eye and the Ney LuxOR Revalia operating microscope was maneuvered into position. Juan scissors were then used to make a conjunctival buttonhole approximately 6mm posterior to the limbus in the inferonasal quadrant. Blunt dissection was carried out to expose bare sclera, and a blunt-tipped sub-tenon?s anesthesia cannula was introduced and passed posteriorly along the globe where non-preserved plain lidocaine was injected into posterior sub-Tenon?s space. A sideport knife was used to make a paracentesis port inferotemporally. Intraocular phenylephrine/lidocaine was injected into the anterior chamber. The anterior chamber was filled with viscoelastic. A 2.4mm keratome knife was used to construct a 2-plane near-clear corneal tunnel extending 2.0mm into clear cornea superiortemporally. A flap was raised on the anterior capsule and capsulorhexis forceps were used to complete a continuous curvilinear capsulorhexis of 5.0 mm. Balanced salt solution was then used to perform cortical cleaving hydrodissection and nuclear hydrodelineation until the lens could be freely rotated within the capsular bag. The lens nucleus was then disassembled and removed within the capsular bag and iris plane using phacoemulsification. Residual cortical material was removed using the I/A handpiece. The posterior capsule was carefully polished to remove as much residual lens epithelial cells as safely possible. The capsular bag was then inflated and the anterior chamber deepened with viscoelastic. The lens implant described above was inserted into the capsular bag using the SHIRA [place] Injector. A Kuglen hook was used to dial the IOL into position. Residual viscoelastic was then removed first from posterior to the IOL, then from the anterior chamber using the I/A handpiece. The lens implant was noted to center nicely within the capsular bag. The incisions were stromally hydrated, and the anterior chamber was reformed using BSS. Then 0.5cc of moxifloxacin 1.0mg/ml were injected into the capsular bag and anterior chamber. The incisions were checked with a Weck spear and found to be secure. Several drops of ophthalmic povidone-iodine 5% were then applied to the eye followed by two drops of Imprimis combination prednisolone/moxifloxacin/nepafenac solution. The drapes were removed and a clear plastic protective eye shield was placed over the eye. The patient was then returned to [facility] in stable condition.
[2021-09-01 07:58] VITALS: BP 173/75; PULSE 72; RESP 16; TEMP 36.5; O2SAT 99
== END 2021-09-01 08:07 | disposition home or self-care (01) ==
PROVIDERS: PCP Nurse Practitioner Family; Visit Provider Ophthalmology
PROC: (CPT 66984; principal; 2021-09-01 07:30)
DX: H25.11 Age-related nuclear cataract, right eye (principal); I10 Essential (primary) hypertension
CPT/HCPCS: 66984; V2632

== ENCOUNTER → 2021-10-22 01:26 | Outpatient (CLI) | payer MEDICARE, OTHER, SELFPAY ==
--- NOTE | 2021-10-22 12:00 | DI.MAMMO_ITS ---
Exam(s) MAMMO SCREENING EXAM: MAMMO SCREENING CLINICAL HISTORY: SCREENING FOR BREAST CANCER, Z12.39. TECHNIQUE: Bilateral full field digital CC and MLO mammographic images were obtained with 3D tomosyn thesis and utilizing computer aided detection (CAD). COMPARISON: Prior mammograms were reviewed, the most recent being 2017. FINDINGS: There has been no significant change in the appearance and distribution of the fibroglandular tissue. Asymmetric tissue anteriorly in the retroareolar region the breast unchanged from 2010 There are no new spiculated masses nor malignant appearing microcalcification groups. There is no significant architectural distortion nor skin thickening-retraction. IMPRESSION: No radiographic evidence of malignancy. BI-RADS Category 1 - Negative Breast Density - Category B - Scattered areas of fibroglandular density Breast density Category C or D implies that the patient has dense breast tissue. Dense breast tissue can make it harder to find cancer on a mammogram. Dense breast tissue is also associated with an incr eased risk of breast cancer. This information about the result of the mammogram report was provided to the patient to raise their awareness. Use this report when you speak with the patient about their risks for breast cancer, which includes their family history. At that time, you may recommend additional screening tests (Ultrasoun d or MRI) as these tests may add significant information. A negative radiographic report should not delay biopsy if a dominant or clinically suspicious mass is present. Up to ten percent of cancers are not identified on mammography. A negative report may reinforce clinical impression. Adenosis and dense breasts may obscure an underlying neoplasm. False positive reports average 6 to 10%. Patient will receive a letter notifying them of these results.
== END ==
PROVIDERS: PCP Nurse Practitioner Family; Visit Provider Nurse Practitioner Family
DX: Z12.31 Encounter for screening mammogram for malignant neoplasm of breast (principal)
CPT/HCPCS: 77063; 77067

== ENCOUNTER 2022-01-13 03:00 | Outpatient (CLI) | payer MEDICARE, OTHER, SELFPAY ==
[2022-01-13 11:38] LABS: Anion Gap 8.1 mmol/L (3-11); BUN 20 mg/dL (7-18); CO2 28.9 mmol/L (21.0-32.0); Chloride 103 mmol/L (98-107); Estimated GFR 57.31 (mL/min/1.73m2); Glucose 111 mg/dL (74-106); Sodium 140 mmol/L (136-145)
== END 2022-01-13 03:01 | disposition home or self-care (01) ==
LOC: LBO 03:01
PROVIDERS: PCP Nurse Practitioner Family; Visit Provider Internal Medicine Rheumatology
DX: M81.0 Age-related osteoporosis without current pathological fracture (principal)
CPT/HCPCS: 36415; 80048

== ENCOUNTER 2022-01-19 03:18 | Outpatient (RCR) | payer MEDICARE, OTHER, SELFPAY ==
[2022-01-19] MEDS: Denosumab 60 MG/ML SYR SC (09:55)
== END 2022-02-16 23:59 | disposition home or self-care (01) ==
LOC: INF 03:18
PROVIDERS: PCP Nurse Practitioner Family; Visit Provider Nurse Practitioner Family
DX: M81.0 Age-related osteoporosis without current pathological fracture (principal)
CPT/HCPCS: 96372; J0897

== ENCOUNTER 2022-03-30 10:07 | Outpatient (CLI) | payer MEDICARE, OTHER, SELFPAY ==
--- NOTE | 2022-03-30 08:45 | DI.RAD_ITS ---
Exam(s) XR HIP RT COMPLETE AP PELVIS EXAM: XR HIP RT COMPLETE AP PELVIS CLINICAL HISTORY: right hip pain. TECHNIQUE: 2D digital imaging was performed. COMPARISON: CR XR HIP RT AP LAT ONLY from 09/18/2019 FINDINGS: Two views: Again noted is the previously described right hip hardware. No hardware loosening nor radiographic ev idence of osteomyelitis. There has been further healing, including at the lesser trochanter which has healed into the parent bone. Right hip joint space remains normal. Left hip unremarkable. IMPRESSION: Further right hip healing. DATA REPOSITORY: RADIATION DOSE DELIVERED:
== END 2022-03-30 10:08 | disposition home or self-care (01) ==
LOC: DIORS 10:08
PROVIDERS: PCP Nurse Practitioner Family; Referring Provider Nurse Practitioner Family; Visit Provider Physician Assistant
DX: S72.144A Nondisplaced intertrochanteric fracture of right femur, initial encounter for closed fracture (principal); X58.XXXA Exposure to other specified factors, initial encounter; M70.51 Other bursitis of knee, right knee
CPT/HCPCS: 99213; 73502

== ENCOUNTER 2022-05-18 09:33 | Outpatient (CLI) | payer OTHER, SELFPAY ==
--- NOTE | 2022-05-18 09:00 | DI.RAD_ITS ---
Exam(s) XR HIP LT COMPLETE AP PELVIS EXAM: XR HIP LT COMPLETE AP PELVIS CLINICAL HISTORY: left hip pain. TECHNIQUE: 2D digital imaging was performed. Three images were obtained. AP, lateral and oblique vi ews were obtained. COMPARISON: CR XR HIP RT COMPLETE AP PELVIS from 03/30/2022 FINDINGS: BONES: There are stable post operative changes present. No new fracture or dislocation. There is aga in seen an intramedullary nail transfixing the old right femoral fracture. JOINTS: The left hip joint space is well maintained. There is mild narrowing of the right hip joint space. SOFT TISSUE: Atherosclerosis is present. IMPRESSION: 1. Stable postoperative changes. 2. Unremarkable left hip. DATA REPOSITORY: RADIATION DOSE DELIVERED:
== END 2022-05-18 09:34 | disposition home or self-care (01) ==
LOC: DIORS 09:33
PROVIDERS: PCP Nurse Practitioner Family; Referring Provider Nurse Practitioner Family; Visit Provider Physician Assistant
DX: M25.552 Pain in left hip (principal)
CPT/HCPCS: 99213; 73502

== ENCOUNTER 2022-05-21 01:18 | Outpatient (CLI) | payer OTHER, SELFPAY ==
--- NOTE | 2022-05-21 07:45 | DI.CT_ITS ---
Exam(s) CT LOWER EXTREMITY LT WO EXAM: CT LOWER EXTREMITY LT WO CLINICAL HISTORY: Severe atraumatic left hip pain,m25.552. TECHNIQUE: Imaging Protocol: Axial computed tomography images with coronal and sagittal reformatted images were created and reviewed. CONTRAST MATERIAL: Intravenous: Omnipaque 350 Contrast volume:structured data in ml Contrast route:IV - COMPARISON: CT CT CHEST PE ABD PELVIS W from 11/12/2020 CR XR HIP RT COMPLETE AP PELVIS from 03/30/2022 CR XR HIP LT COMPLETE AP PELVIS from 05/18/2022 FINDINGS: The bones appear osteoporotic. No evidence of left pelvic or left hip fracture. Left SI joint unrem arkable. Left hip joint space is maintained. No joint effusion is visible. No abnormalities seen i n the left hip musculature. Diverticulosis noted. Visualized portions of the bladder unremarkable. IMPRESSION: No evidence of fracture or other acute abnormality. RADIATION DOSE DELIVERED: 379.21mGy.cm Total DLP DATA REPOSITORY: All CT scans at this facility are submitted to the National Radiology Data Registry (NRDR) Dose Index Registry (DIR) with the [employer] ([employer]). RADIATION OPTIMIZATION: All CT scans at this facility use at least one of these dose optimization te chniques: automated exposure control; mA and/or kV adjustment per patient size (includes targeted exa ms where dose is matched to clinical indication); or iterative reconstruction.
== END 2022-05-21 01:38 ==
LOC: DI 01:18
PROVIDERS: PCP Physician Assistant; Visit Provider Student in an Organized Health Care Education/Training Program
DX: M25.552 Pain in left hip (principal)
CPT/HCPCS: 73700

== ENCOUNTER → 2022-06-08 14:56 | Outpatient (BNVA) | payer OTHER, SELFPAY | PROVIDERS: PCP Physician Assistant; Referring Provider Physician Assistant; Visit Provider Student in an Organized Health Care Education/Training Program | DX: M25.552 Pain in left hip (principal); R26.2 Difficulty in walking, not elsewhere classified | CPT/HCPCS: 99213 ==

== ENCOUNTER 2022-06-18 01:26 | Outpatient (CLI) | payer OTHER, SELFPAY ==
--- NOTE | 2022-06-18 08:45 | DI.RAD_ITS ---
Exam(s) RF JOINT INJECTION FLUORO GUID EXAM: RF JOINT INJECTION FLUORO GUID CLINICAL HISTORY: acute pain lt hip, m25.552, fluoro guided injection TECHNIQUE: 2D and realtime digital imaging was performed. CONTRAST MATERIAL: Water soluble contrast was administered. COMPARISON: No exams were available for comparison FINDINGS: Fluoroscopy was provided for Dr. Garzon during the performance of a left hip injection. Please re jarrod to the procedure report for complete details. IMPRESSION: RADIATION DOSE DELIVERED: kacie Grace=6.02 mGy
[2022-06-18] MEDS: methylPREDNISolone ACETATE 80 MG/ML VIAL IM (15:51)
[2022-06-18] MEDS: Omnipaque 300 MG/ML 10 ML BTL IJ (15:53)
[2022-06-18] MEDS: Bupivacaine 0.5% Pres-Free 10 ML VIAL 6 ML IJ (15:53)
--- NOTE | 2022-06-19 05:55 | W.PROCNOTE ---
Date of service: 06/18/22 Time of Service: 15:50 Procedure Note Date of procedure: 06/18/22 Procedure: Left Hip Injection with Fluoroscopic Guidance Surgeon/Proceduralist/Physician: Bhavin Garzon Procedure Diagnosis: Left hip and groin pain with difficulty ambulating Procedure Indications: Kelsea has had persistent pain of the LEFT hip and groin. Noninvasive measures have been tried. To serve as both diagnostic and therapeutic, an injection under fluoroscopy was recommended. I had discussed the risks of the procedure and the patient elected to proceed. Procedure Description: Kelsea was greeted in the flouroscopy room. The correct side was identified and the consent was reviewed with the patient and signed. The patient was then placed in the supine position on the fluoroscopy table. The LEFT hip was then prepped with Chloraprep. The anterolateral injection starting point was identiifed by bony landmarks and fluoroscopy. The skin and soft tissue in the tract of the injection was anesthetized with 1% Lidocaine. A spinal needle was then inserted deep into the hip joint at the level of the lateral femoral neck under fluoroscopic guidance. A small amount of Omnipaque solution was injected to confirm intraarticular placement. Once confirmed, the hip was injected with 5cc of 0.5% Bupivicaine and 80mg of Depo-Medrol. A bandaid was placed on the injection site. The patient tolerated the procedure well but unfortunately was not able to detect any significant change from her preinjection symptoms.
== END 2022-06-18 01:46 ==
LOC: DI 01:29
PROVIDERS: PCP Physician Assistant; Visit Provider Student in an Organized Health Care Education/Training Program
DX: M25.552 Pain in left hip (principal)
CPT/HCPCS: 20610; 77002; J1040

== ENCOUNTER 2022-07-07 01:17 | Outpatient (CLI) | payer OTHER, SELFPAY ==
--- NOTE | 2022-07-07 07:00 | DI.MRI_ITS ---
Exam(s) MR LOWER JOINT LT WO EXAM: MR LOWER JOINT LT WO CLINICAL HISTORY: acute pain lt hip, m25.552 TECHNIQUE: Multiplanar multisequence MRI of left hip was performed COMPARISON: CR XR HIP LT COMPLETE AP PELVIS from 05/18/[address] LOWER EXTREMITY LT WO from 05/21/2022 FINDINGS: Bones: There is no evidence of a fracture or avascular necrosis. No significant joint effusion or l abral injury is present. In the proximal diaphysis of the left femur there is a area of hyperintense signal on the T2 weighted images in corresponding hypointense signal on the T1 weighted image. This area measures approximately 10 cm in length and 1.5 cm transverse it appears to be centered in the me dullary cavity. There is normal signal in the cortex. There is mild edema in the surrounding soft t issues. No focal fluid collection is seen in the soft tissues. The SI joints and symphysis pubis ar e well maintained. There is an intramedullary rogelio and screw seen in the proximal right femur. Musculotendinous structures: Musculotendinous structures demonstrate no abnormality. Soft tissues: There is diverticulosis seen in the sigmoid colon, but no evidence of acute diverticuli tis. The patient is status post hysterectomy. IMPRESSION: 1. Unremarkable MRI of the left hip. 2. 10 cm long area of hypointense T1 and hyperintense T2 signal in the diaphysis of the left femur. The area is not wholly included on the axial images. The cortex appears intact. Fracture is conside red less likely. An intramedullary mass or infection cannot be entirely excluded. Further evaluatio n with x-ray of the left femur and MRI of the left femur to extend the axial images and include postc ontrast images is recommended. Bone scan should also be considered for further evaluation. DATA REPOSITORY:
== END 2022-07-07 01:37 ==
LOC: DI 01:18
PROVIDERS: PCP Physician Assistant; Visit Provider Student in an Organized Health Care Education/Training Program
DX: M25.552 Pain in left hip (principal); M89.8X8 Other specified disorders of bone, other site
CPT/HCPCS: 73721

== ENCOUNTER 2022-07-14 01:11 | Outpatient (CLI) | payer OTHER, SELFPAY ==
--- NOTE | 2022-07-14 06:45 | DI.NM_ITS ---
Exam(s) NM BONE SCAN WHOLE BODY GRP EXAM: NM BONE SCAN WHOLE BODY GRP CLINICAL HISTORY: Lesion of the left femur,M89.9. TECHNIQUE: Injected Dose: 25 mCi Tc-99m MDP Delayed Images: 2-3 hours. COMPARISON: NM from 06/28/2017 CR XR HIP LT COMPLETE AP PELVIS from 05/18/[address] LOWER EXTREMITY LT WO from 05/21/2022 MR MR LOWER JOINT LT WO from 07/07/2022 CR XR FEMUR LT from 07/14/2022 MR MR LOWER EXTREMITY LT WO/W from 07/14/2022 FINDINGS: Symmetric axial uptake. Bilateral renal excretion is identified. There is focal linear uptake at the medial aspect of the proximal diaphysis of the left femur. This corresponds to the cortical lucency seen on the x-ray of the femur performed the same day. The increased uptake would be consistent with an acute fracture. The extent of the increased uptake does not match the extent of the abnormal sig nal seen on the MRI of the femur. The abnormal radiotracer signal is small compared to the abnormal marrow signal on the MRI. Degenerative signal uptake is seen in the lower lumbar spine and the right knee. The abnormal signal seen in the proximal right femur is consistent with the patient's orthope dic hardware. There is increased uptake seen in the right elbow. This can be further evaluated with the x-ray of the elbow. Please correlate with patient's clinical history. IMPRESSION: 1. There is an area of uptake seen on the medial cortex of the proximal left femur corresponding to t he fracture seen on the x-ray of the left femur from the same day. 2. The extent of radiotracer uptake is small in comparison to the abnormal signal seen on the MRI of the femur. DATA REPOSITORY:
--- NOTE | 2022-07-14 06:45 | DI.RAD_ITS ---
Exam(s) XR FEMUR LT EXAM: XR FEMUR LT CLINICAL HISTORY: eval femur with interosseous lesion. TECHNIQUE: 2D digital imaging was performed of the left femur. Four images were obtained. AP and lat eral views were obtained. COMPARISON: CR XR HIP RT COMPLETE AP PELVIS from 03/30/2022 CR XR HIP LT COMPLETE AP PELVIS from 05/18/[address] LOWER EXTREMITY LT WO from 05/21/2022 MR MR LOWER JOINT LT WO from 07/07/2022 FINDINGS: BONES: There is now a lucency through the cortex of the medial proximal diaphysis of the left femur c onsistent with a fracture. This corresponds to the area of abnormal signal seen on the recent MRI ex amination. No bony destructive lesion is seen. Visualized portion of knee and hip joints are unremar kable. The bony mineralization is unremarkable. SOFT TISSUE: Atherosclerosis. IMPRESSION: Cortical linear lucency in the medial aspect of the proximal diaphysis of the left femur. The findin g is suspicious for fracture. This was not present on the x-ray of the hip from 05/18/2022. DATA REPOSITORY: RADIATION DOSE DELIVERED:
--- NOTE | 2022-07-14 06:45 | DI.MRI_ITS ---
Exam(s) MR LOWER EXTREMITY LT WO/W EXAM: MR LOWER EXTREMITY LT WO/W CLINICAL HISTORY: Eval femur with interosseous lesion,M89.9 TECHNIQUE: Multiplanar multisequence MRI of the was performed. CONTRAST MATERIAL: IV Contrast: 15 ML of Dotarem contrast administered. COMPARISON: CR XR HIP LT COMPLETE AP PELVIS from 05/18/[address] LOWER EXTREMITY LT WO from 05/21/2022 MR MR LOWER JOINT LT WO from 07/07/2022 CR XR FEMUR LT from 07/14/2022 FINDINGS: The examination is limited due to patient motion artifact. BONES/JOINTS: There is a 10.9 cm area of heterogeneous signal on the T1 and T2 weighted images. Ther e are hyperintense T2 areas which correspond to hypointense T1 weighted areas within the proximal sha ft of the left femur. These areas show enhancement following contrast administration. On the x-ray performed the same day of the left femur there is evidence of a fracture involving the medial cortex of the proximal femur. On the MRI there is mild edema seen in the soft tissues medially. No focal f luid collection is seen to suggest an abscess. No bone lesions identified. MUSCULOTENDINOUS STRUCTURES: The muscles show normal signal and size. No muscular fatty atrophy. SOFT TISSUES: There is mild edema seen in the medial soft tissues adjacent to the proximal femoral sh aft. No focal fluid collection is seen to suggest an abscess. OTHER FINDINGS: None. IMPRESSION: 1. Finding seen on the x-ray of the leg from today showed evidence of a fracture involving the medial cortex of the proximal femoral diaphysis. 2. There is a 10.9 cm length of heterogeneous signal within the bone marrow involving the proximal ash lf of the femoral shaft. There is mild edema in the juxtacortical soft tissues medial to the proxima l femur. No focal fluid collection is seen to suggest an abscess. These findings may represent sequ elae of previously occult fracture. Due to the findings within the marrow, a pathologic fracture olivia uld be considered. Osteomyelitis may be considered but is considered less likely.. DATA REPOSITORY:
[2022-07-14 09:49] LABS: Anion Gap 7.1 mmol/L (3-11); BUN 22 mg/dL (7-18); CO2 29.9 mmol/L (21.0-32.0); Calcium 9.4 mg/dL (8.5-10.1); Chloride 105 mmol/L (98-107); Estimated GFR 56.95 (mL/min/1.73m2); Glucose 115 mg/dL (74-106); Potassium 3.4 mmol/L (3.5-5.1); Sodium 142 mmol/L (136-145)
[2022-07-14] MEDS: Gadoterate meglumine 20 ML SYRINGE 14 ML IVP (11:13)
[2022-07-14] MEDS: Normal Saline Flush 10 ML SYR IVP (11:13)
== END 2022-07-14 01:31 ==
LOC: DI 01:11
PROVIDERS: Internal Medicine Rheumatology; PCP Physician Assistant; Visit Provider Student in an Organized Health Care Education/Training Program
DX: M89.8X6 Other specified disorders of bone, lower leg (principal); M79.89 Other specified soft tissue disorders; S72.8X2A Other fracture of left femur, initial encounter for closed fracture; M25.552 Pain in left hip; M79.652 Pain in left thigh; I10 Essential (primary) hypertension
CPT/HCPCS: 73552; 78306; 80048; 73720; 82565